=== PATIENT | male | born 1960 | race Caucasian/White ===

== ENCOUNTER 2016-10-03 21:35 | Emergency (ER) | payer SELFPAY ==
[2016-10-03] MEDS ORDERED: Sodium Chloride 0.9% 1,000 ML IV ONE (21:54)
[2016-10-03] MEDS ORDERED: Ibuprofen 600 MG Tab PO ONE (21:54)
--- NOTE | 2016-10-03 21:55 | EDM.PDOC ---
ED HPI GENERAL MEDICAL PROBLEM - General Chief Complaint: Fever Stated Complaint: FEVER/SHORT OF BREATH/COUGH/CONGESTION Time Seen by Provider: 10/03/16 21:53 - History of Present Illness INITIAL COMMENTS - FREE TEXT/NARRATIVE: HISTORY AND PHYSICAL: History of present illness: Patient 56-year-old white male history of hypertension and bradycardia presents with concern of fever cough and cold symptoms for the last 2 days he said a history of pneumonia he denies vomiting diarrhea chest pain or other concerns Review of systems: As per history of present illness and below otherwise all systems reviewed and negative. Past medical history: As per history of present illness and as reviewed below otherwise noncontributory. Surgical history: As per history of present illness and as reviewed below otherwise noncontributory. Social history: No reported history of drug or alcohol abuse. Family history: As per history of present illness and as reviewed below otherwise noncontributory. Physical exam: HEENT: Atraumatic, normocephalic, pupils reactive, negative for conjunctival pallor or scleral icterus, mucous membranes moist, throat clear, neck supple, nontender, trachea midline. Lungs: Coarse bilaterally, breath sounds equal bilaterally, chest nontender. Heart: S1S2, regular, negative for clicks, rubs, or JVD. Abdomen: Soft, nondistended, nontender. Negative for masses or hepatosplenomegaly. Negative for costovertebral tenderness. Pelvis: Stable nontender. Genitourinary: Deferred. Rectal: Deferred. Extremities: Atraumatic, negative for cords or calf pain. Neurovascular unremarkable. Neuro: Awake, alert, oriented. Cranial nerves II through XII unremarkable. Cerebellum unremarkable. Motor and sensory unremarkable throughout. Exam nonfocal. Diagnostics: CBC CMP influenza screen BNP chest x-ray EKG Therapeutics: Normal saline 1 L bolus Motrin 600 mg by mouth Impression: #1 acute febrile illness #2 history of hypertension #3 history of bradycardia Definitive disposition and diagnosis as appropriate pending reevaluation and review of above. - Related Data Allergies Allergy/AdvReac Type Severity Reaction Status Date / Time cephalexin [From Keflex] Allergy Hives Verified 10/03/16 21:42 Home Meds: Home Meds Carvedilol 1 tab PO DAILY 10/03/16 [History] Losartan [Cozaar] 1 tab PO DAILY 10/03/16 [History] Spironolactone [Aldactone] 1 tab PO DAILY 10/03/16 [History] Past Medical History - Past Health History Medical/Surgical History: Denies Medical/Surgical History Cardiovascular History: Reports: Hypertension Other Cardiovascular History: Weak heart; chest pains Other Respiratory History: Aspiration Pneumonia - Infectious Disease History Infectious Disease History: Reports: Chicken pox - Past Surgical History Other HEENT Surgeries/Procedures: Septum repair of bilateral nare GI Surgical History: Reports: Hernia, abdominal Other GI Surgeries/Procedures: Acid Reflux repair Social & Family History - Family History Family Medical History: Noncontributory - Tobacco Use Smoking Status *Q: Former Smoker - Caffeine Use Caffeine Use: Reports: Coffee Caffeine Use Comment: 1cup/day - Recreational Drug Use Recreational Drug Use: No ED ROS GENERAL - Review of Systems Review Of Systems: ROS reveals no pertinent complaints other than HPI. ED EXAM, GENERAL - Physical Exam Exam: See Below (See dictation) Course - Vital Signs Last Recorded V/S: Last Vital Signs Temp 37.7 C 10/03/16 22:42 Pulse 89 10/03/16 22:42 Resp 23 H 10/03/16 21:43 BP 173/104 H 10/03/16 21:43 Pulse Ox 96 10/03/16 21:43 - Orders/Labs/Meds Orders: Active Orders 24 hr Category Date Time Status EKG Documentation Completion [RC] STAT Care 10/03/16 21:52 Active Chest 2V [CR] Stat Exams 10/03/16 21:52 Taken Labs: Laboratory Tests 10/03/16 10/03/16 10/03/16 Range/Units 22:05 22:05 22:05 WBC 4.20 (4.0-11.0) K/uL RBC 4.50 (4.50-5.90) M/uL Hgb 13.8 (13.0-17.0) g/dL Hct 40.9 (38.0-50.0) % MCV 90.9 (80.0-98.0) fL MCH 30.7 (27.0-32.0) pg MCHC 33.7 (31.0-37.0) g/dL RDW Std Deviation 42.9 (28.0-62.0) fl RDW Coeff of Francine 13 (11.0-15.0) % Plt Count 154 (150-400) K/uL MPV 10.60 (7.40-12.00) fL Add Manual Diff YES Neutrophils % (Manual) 51 (48.0-80.0) % Band Neutrophils % 10 % Lymphocytes % (Manual) 22 (16.0-40.0) % Monocytes % (Manual) 16 H (0.0-15.0) % Eosinophils % (Manual) 1 (0.0-7.0) % Nucleated RBC % 0.4 /100WBC Absolute Seg Neuts 2.1 Band Neutrophils # 0.4 Lymphocytes # (Manual) 0.9 Monocytes # (Manual) 0.7 Eosinophils # (Manual) 0 Nucleated RBCs # 0 K/uL Sodium 141 (136-146) mmol/L Potassium 3.9 (3.5-5.1) mmol/L Chloride 109 (98-110) mmol/L Carbon Dioxide 24 (21-31) mmol/L BUN 15 (6.0-23.0) mg/dL Creatinine 0.9 (0.6-1.5) mg/dL Est Cr Clr Drug Dosing 101.79 mL/min Estimated GFR (MDRD) > 60.0 ml/min Glucose 104 (60-110) mg/dL Calcium 8.6 L (8.8-10.8) mg/dL Total Bilirubin 0.4 (0.1-1.5) mg/dL AST 24 (5-40) IU/L ALT 35 (8-54) IU/L Alkaline Phosphatase 79 (40-150) B-Natriuretic Peptide 28 (<100) PG/ML Total Protein 6.9 (6.0-8.0) g/dL Albumin 4.2 (3.5-5.0) g/dL Globulin 2.7 (2.0-3.5) g/dL Albumin/Globulin Ratio 1.6 (1.3-2.8) Meds: Medications Discontinued Medications Generic Name Dose Route Start Last Admin Trade Name Freq PRN Reason Stop Dose Admin Sodium Chloride 1,000 mls @ 999 mls/hr 10/03/16 21:54 10/03/16 22:05 Normal Saline IV 10/03/16 22:54 999 mls/hr .BOLUS ONE Administration Ibuprofen 600 mg 10/03/16 21:54 10/03/16 22:04 Motrin PO 10/03/16 21:55 600 mg ONETIME ONE Administration Oseltamivir Phosphate 75 mg 10/03/16 22:56 Tamiflu PO 10/03/16 22:57 ONETIME ONE Departure - Departure Time of Disposition: 22:57 Disposition: Home, Self-Care 01 Condition: good Clinical Impression: Influenza Forms: ED Department Discharge Additional Instructions: The following information is given to patients seen in the emergency department who are being discharged to home. This information is to outline your options for follow-up care. We provide all patients seen in our emergency department with a follow-up referral. The need for follow-up, as well as the timing and circumstances, are variable depending upon the specifics of your emergency department visit. If you don't have a primary care physician on staff, we will provide you with a referral. We always advise you to contact your personal physician following an emergency department visit to inform them of the circumstance of the visit and for follow-up with them and/or the need for any referrals to a consulting specialist. The emergency department will also refer you to a specialist when appropriate. This referral assures that you have the opportunity for followup care with a specialist. All of these measure are taken in an effort to provide you with optimal care, which includes your followup. Under all circumstances we always encourage you to contact your private physician who remains a resource for coordinating your care. When calling for followup care, please make the office aware that this follow-up is from your recent emergency room visit. If for any reason you are refused follow-up, please contact the [facility] emergency department at and asked to speak to the emergency department charge nurse. Tamiflu as prescribed Motrin Tylenol as directed push fluids continue current medications altered private medical doctor one to 2 days return as needed as discussed - My Orders Last 24 Hours: My Active Orders 10/03/16 21:52 EKG Documentation Completion [RC] STAT Chest 2V [CR] Stat - Assessment/Plan Last 24 Hours: My Active Orders 10/03/16 21:52 EKG Documentation Completion [RC] STAT Chest 2V [CR] Stat
[2016-10-03 22:38] LABS: CHLORIDE,CL 109 mmol/L (98-110); SODIUM,NA 141 mmol/L (136-146)
[2016-10-03] MEDS ORDERED: Oseltamivir 75 MG Cap PO ONE (22:56)
[2016-10-03 23:29] VITALS: BP 140/84
--- NOTE | 2016-10-04 19:42 | CR ---
EXAM DATE: 10/03/16 PATIENT'S AGE: 56 Patient: OSCAR JEROME Facility: [place], [place] Site . Site : 1960 Study: XRay Chest [id number]/9/[id number] 10:39:25 PM Ordering Physician: Brinda Sepulveda Final Report: INDICATION: cough x3 days, fever x1 day TECHNIQUE: Chest 2 views. The lung bases on lateral projection are incompletely imaged COMPARISON: None FINDINGS: Cardiovascular and mediastinum: Heart size and vasculature are normal in caliber and appearance. Mediastinum is within normal limits. Lungs and pleural spaces: No focal consolidation. No sign of pleural effusion. No pneumothorax. Bones and soft tissues: Degenerative changes. IMPRESSION: No acute cardiopulmonary disease. Dictated by Benny Cortes MD @ 10/03/2016 10:44:32 PM Dictated by: Benny Cortes MD @ 10/03/2016 22:51:31 (Electronic Signature) Report Signed by Proxy and Original Signed Document filed in the Medical Record. MTDD
== END 2016-10-03 23:10 | disposition home or self-care (01) ==
LOC: MW.ED 21:35
DX: J11.1 Influenza due to unidentified influenza virus with other respiratory manifestations (principal); I10 Essential (primary) hypertension; Z87.891 Personal history of nicotine dependence; Z87.01 Personal history of pneumonia (recurrent); Z88.1 Allergy status to other antibiotic agents; Z79.899 Other long term (current) drug therapy
CPT/HCPCS: 71020; 80053; 83880; 85025; 87804; 96360; 99284; A9270; J7040; 93005; 99283

== ENCOUNTER 2016-10-20 12:17 | Emergency (ER) | payer SELFPAY ==
[2016-10-20 12:29] VITALS: BP 163/80
--- NOTE | 2016-10-20 12:39 | EDM.PDOC ---
ED HPI GENERAL MEDICAL PROBLEM - General Chief Complaint: Lower Extremity Injury/Pain Stated Complaint: PAIN IN LEG/KNEE Time Seen by Provider: 10/20/16 12:29 Source of Information: Reports: Patient History Limitations: Reports: No limitations - History of Present Illness INITIAL COMMENTS - FREE TEXT/NARRATIVE: HISTORY AND PHYSICAL: History of present illness: Patient is a 56-year-old male who presents to the emergency department with severe right knee pain. He states he fell a couple of weeks ago and landed hard on some ice random elevation. He doesn't particularly remember injuring his knee at that time the last couple of days it has been getting worse and today he can even get out of bed. He states it is excruciating to try to flex the knee fully and weightbearing is very painful. He has not had any swelling of the knee. He denies any previous injury to the knee. Has no history of gout. He has no calf pain or tenderness. The leg pain radiates up to his hip and down his ankle but the source of the pain is his knee. No fevers or chills. No shortness of breath or chest pain. Review of systems: As per history of present illness and below otherwise all systems reviewed and negative. Past medical history: As per history of present illness and as reviewed below otherwise noncontributory. Surgical history: As per history of present illness and as reviewed below otherwise noncontributory. Social history: No reported history of drug or alcohol abuse. Family history: As per history of present illness and as reviewed below otherwise noncontributory. Physical exam: General: No acute distress. Vitals reviewed. HEENT: Atraumatic, normocephalic, normal neck range of motion Lungs: Clear to auscultation, no respiratory distress. Heart: Regular rate and rhythm. Normal peripheral pulses. Abdomen: Soft, nondistended, nontender. Pelvis: Stable nontender. Genitourinary: Deferred. Rectal: Deferred. Extremities: There is no evidence of swelling to the knee. It is not red or hot. There is no bruising or skin injuries noted. He has no tenderness to palpation anywhere around the knee. His pain is with range of motion and weightbearing. Sensation. No caffeine Or redness. Normal dorsalis pedis pulses. No ankle pain or swelling. Neuro: Awake, alert, oriented. Exam nonfocal. Diagnostics: Right knee x-ray Impression: R knee pain Plan: Patient was given a knee immobilizer. He states he has crutches at home. He will take ibuprofen and I gave him a prescription for [place] to use as needed. His x-rays showed some spurring around some of the ligaments. I do not know if that is causing his symptoms and this is aggravated by his injury or if he has some other soft tissue injury not visualized on x-ray. He had no evidence of skin infection or joint effusion and I do not think this is gout or septic arthritis. He was referred to orthopedics. Definitive disposition and diagnosis as appropriate pending reevaluation and review of above. Right Knee Pain Score (Numeric/FACES): 10 - Related Data Allergies Allergy/AdvReac Type Severity Reaction Status Date / Time cephalexin [From Keflex] Allergy Hives Verified 10/03/16 21:42 Home Meds: Home Meds Carvedilol 1 tab PO DAILY 10/03/16 [History] Losartan [Cozaar] 1 tab PO DAILY 10/03/16 [History] Spironolactone [Aldactone] 1 tab PO DAILY 10/03/16 [History] Past Medical History - Past Health History Medical/Surgical History: Denies Medical/Surgical History Cardiovascular History: Reports: Hypertension Other Cardiovascular History: Weak heart; chest pains Other Respiratory History: Aspiration Pneumonia - Infectious Disease History Infectious Disease History: Reports: Chicken pox - Past Surgical History Other HEENT Surgeries/Procedures: Septum repair of bilateral nare GI Surgical History: Reports: Hernia, abdominal Other GI Surgeries/Procedures: Acid Reflux repair Social & Family History - Family History Family Medical History: Noncontributory - Tobacco Use Smoking Status *Q: Former Smoker - Caffeine Use Caffeine Use: Reports: Coffee Caffeine Use Comment: 1cup/day - Recreational Drug Use Recreational Drug Use: No ED ROS GENERAL - Review of Systems Review Of Systems: ROS reveals no pertinent complaints other than HPI. ED EXAM, GENERAL - Physical Exam Exam: See Below (See dictation.) Course - Vital Signs Last Recorded V/S: Last Vital Signs Temp 36.4 C 10/20/16 12:23 Pulse 79 10/20/16 12:23 Resp 19 10/20/16 12:23 BP 163/80 H 10/20/16 12:23 Pulse Ox 96 10/20/16 12:23 - Orders/Labs/Meds Orders: Active Orders 24 hr Category Date Time Status Knee 3V Rt [CR] Stat Exams 10/20/16 12:28 Taken Meds: Medications Discontinued Medications Generic Name Dose Route Start Last Admin Trade Name Melvin PRN Reason Stop Dose Admin Morphine Sulfate 4 mg 10/20/16 14:25 10/20/16 14:33 Morphine IM 10/20/16 14:26 4 mg ONETIME ONE Administration Departure - Departure Time of Disposition: 14:03 Disposition: Home, Self-Care 01 Condition: good Clinical Impression: Knee pain Qualifiers: Laterality: right Chronicity: acute Qualified Code(s): M25.561 - Pain in right knee Instructions: Knee Pain Referrals: PCP,None [Primary Care Provider] - Forms: ED Department Discharge Additional Instructions: The following information is given to patients seen in the emergency department who are being discharged to home. This information is to outline your options for follow-up care. We provide all patients seen in our emergency department with a follow-up referral. The need for follow-up, as well as the timing and circumstances, are variable depending upon the specifics of your emergency department visit. If you don't have a primary care physician on staff, we will provide you with a referral. We always advise you to contact your personal physician following an emergency department visit to inform them of the circumstance of the visit and for follow-up with them and/or the need for any referrals to a consulting specialist. The emergency department will also refer you to a specialist when appropriate. This referral assures that you have the opportunity for follow-up care with a specialist. All of these measure are taken in an effort to provide you with optimal care, which includes your follow-up. Under all circumstances we always encourage you to contact your private physician who remains a resource for coordinating your care. When calling for follow-up care, please make the office aware that this follow-up is from your recent emergency room visit. If for any reason you are refused follow-up, please contact the [facility] Emergency Department at and asked to speak to the emergency department charge nurse. [facility] - [facility] Professional Building [address] [place] [address], [address] [place] [address] - My Orders Last 24 Hours: My Active Orders 10/20/16 12:28 Knee 3V Rt [CR] Stat - Assessment/Plan Last 24 Hours: My Active Orders 10/20/16 12:28 Knee 3V Rt [CR] Stat
[2016-10-20] MEDS ORDERED: Morphine 2 MG/ML Syringe IM ONE (14:25)
--- NOTE | 2016-10-21 18:28 | CR ---
EXAM DATE: 10/20/16 PATIENT'S AGE: 56 Patient: OSCAR JEROME Facility: [place], [place] Site . Site : 1960 Study: XRay Knee Right [id number]/26/2017 12:58:32 PM Ordering Physician: Doctor Beltran Final Report: HISTORY: Right knee pain, prior fall. TECHNIQUE: Three views of the right knee. FINDINGS: There is no acute fracture. No suprapatellar joint effusion or malalignment. Spurring at the quadriceps attachment to the superior pole of the patella. Spurring at the patellar attachment to the tibial tubercle. No chondrocalcinosis or erosive change. IMPRESSION: No acute fracture or malalignment. Dictated by Byron Whittington MD @ 10/20/2016 1:24:28 PM Dictated by: Byron Whittington MD @ 10/20/2016 13:24:34 (Electronic Signature) Report Signed by Proxy and Original Signed Document filed in the Medical Record. MTDWilbert
== END 2016-10-20 14:38 | disposition home or self-care (01) ==
LOC: MW.ED 12:17
DX: M25.561 Pain in right knee (principal); I10 Essential (primary) hypertension; Z88.1 Allergy status to other antibiotic agents; Z87.01 Personal history of pneumonia (recurrent); Z87.891 Personal history of nicotine dependence; Z79.899 Other long term (current) drug therapy
CPT/HCPCS: 73562; 96372; 99283; J2270; 99284

== ENCOUNTER 2017-06-23 20:11 | Emergency (ER) | payer SELFPAY ==
--- NOTE | 2017-06-23 20:26 | EDM.PDOC ---
ED HPI GENERAL MEDICAL PROBLEM - General Chief Complaint: Lower Extremity Injury/Pain Stated Complaint: LEFT LEG PAIN Time Seen by Provider: 06/23/17 20:20 - History of Present Illness INITIAL COMMENTS - FREE TEXT/NARRATIVE: HISTORY AND PHYSICAL: History of present illness: Patient 56-year-old male presents with right leg pain he's had this for 8 days this began status post flight that he was on to [place] he states that he has had persistent pain and swelling that's localized to his right calf he denies history of DVT or pulmonary embolism he denies other trauma or concern he denies shortness of breath abdominal pain nausea vomiting fever or chills he denies history of gout or history of known Rodrigues's cyst. Review of systems: As per history of present illness and below otherwise all systems reviewed and negative. Past medical history: As per history of present illness and as reviewed below otherwise noncontributory. Surgical history: As per history of present illness and as reviewed below otherwise noncontributory. Social history: No reported history of drug or alcohol abuse. Family history: As per history of present illness and as reviewed below otherwise noncontributory. Physical exam: HEENT: Atraumatic, normocephalic, pupils reactive, negative for conjunctival pallor or scleral icterus, mucous membranes moist, throat clear, neck supple, nontender, trachea midline. Lungs: Clear to auscultation, breath sounds equal bilaterally, chest nontender. Heart: S1S2, regular, negative for clicks, rubs, or JVD. Abdomen: Soft, nondistended, nontender. Negative for masses or hepatosplenomegaly. Negative for costovertebral tenderness. Pelvis: Stable nontender. Genitourinary: Deferred. Rectal: Deferred. Extremities: Patient has tenderness to palpation of his right calf there are no cords noted neurovascular exam is unremarkable Neuro: Awake, alert, oriented. Cranial nerves II through XII unremarkable. Cerebellum unremarkable. Motor and sensory unremarkable throughout. Exam nonfocal. Diagnostics: CBC CMP PT/INR x-ray right tib-fib venous Doppler right lower extremity Therapeutics: To be determined Impression: #1 right lower extremity pain Definitive disposition and diagnosis as appropriate pending reevaluation and review of above. - Related Data Allergies Allergy/AdvReac Type Severity Reaction Status Date / Time cephalexin [From Keflex] Allergy Hives Verified 06/23/17 20:27 Home Meds: Home Meds Carvedilol 1 tab PO BID 10/03/16 [History] Losartan [Cozaar] 1 tab PO DAILY 10/03/16 [History] Past Medical History - Past Health History Medical/Surgical History: Denies Medical/Surgical History Cardiovascular History: Reports: Hypertension Other Cardiovascular History: Weak heart; chest pains Other Respiratory History: Aspiration Pneumonia - Infectious Disease History Infectious Disease History: Reports: Chicken Pox - Past Surgical History GI Surgical History: Reports: Hernia, Abdominal Social & Family History - Family History Family Medical History: Noncontributory - Tobacco Use Smoking Status *Q: Former Smoker Second Hand Smoke Exposure: No - Caffeine Use Caffeine Use: Reports: Coffee Caffeine Use Comment: 1cup/day - Recreational Drug Use Recreational Drug Use: No Review of Systems - Review of Systems Review Of Systems: ROS reveals no pertinent complaints other than HPI. ED EXAM, GENERAL - Physical Exam Exam: See Below (See dictation) Course - Vital Signs Last Recorded V/S: Last Vital Signs Temp 37.6 C 06/23/17 20:24 Pulse 83 06/23/17 20:24 Resp 16 06/23/17 20:24 BP 183/110 H 06/23/17 20:24 Pulse Ox 94 L 06/23/17 20:24 - Orders/Labs/Meds Orders: Active Orders 24 hr Category Date Time Status CV Venous Duplex Legs Bi [US] Stat Exams 06/23/17 20:30 Taken Tibia Fibula Rt [CR] Stat Exams 06/23/17 20:30 Taken Labs: Laboratory Tests 06/23/17 06/23/17 06/23/17 Range/Units 20:40 20:40 20:40 WBC 8.52 (4.0-11.0) K/uL RBC 4.71 (4.50-5.90) M/uL Hgb 14.5 (13.0-17.0) g/dL Hct 42.8 (38.0-50.0) % MCV 90.9 (80.0-98.0) fL MCH 30.8 (27.0-32.0) pg MCHC 33.9 (31.0-37.0) g/dL RDW Std Deviation 42.6 (28.0-62.0) fl RDW Coeff of Francine 13 (11.0-15.0) % Plt Count 193 (150-400) K/uL MPV 10.60 (7.40-12.00) fL Neut % (Auto) 65.6 (48.0-80.0) % Lymph % (Auto) 23.7 (16.0-40.0) % Harvey % (Auto) 8.9 (0.0-15.0) % Eos % (Auto) 1.6 (0.0-7.0) % Baso % (Auto) 0.2 (0.0-1.5) % Neut # (Auto) 5.6 (1.4-5.7) K/uL Lymph # (Auto) 2.0 (0.6-2.4) K/uL Harvey # (Auto) 0.8 (0.0-0.8) K/uL Eos # (Auto) 0.1 (0.0-0.7) K/uL Baso # (Auto) 0.0 (0.0-0.1) K/uL Nucleated RBC % 0.0 /100WBC Nucleated RBCs # 0 K/uL INR 0.94 (0.86-1.11) Sodium 142 (136-146) mmol/L Potassium 4.2 (3.5-5.1) mmol/L Chloride 107 (98-110) mmol/L Carbon Dioxide 26 (21-31) mmol/L BUN 17 (6.0-23.0) mg/dL Creatinine 1.0 (0.6-1.5) mg/dL Est Cr Clr Drug Dosing 91.61 mL/min Estimated GFR (MDRD) > 60.0 ml/min Glucose 132 H (60-110) mg/dL Calcium 9.2 (8.8-10.8) mg/dL Total Bilirubin 0.3 (0.1-1.5) mg/dL AST 17 (5-40) IU/L ALT 32 (8-54) IU/L Alkaline Phosphatase 84 (40-150) Total Protein 7.2 (6.0-8.0) g/dL Albumin 4.2 (3.5-5.0) g/dL Globulin 3.0 (2.0-3.5) g/dL Albumin/Globulin Ratio 1.4 (1.3-2.8) Meds: Medications Discontinued Medications Generic Name Dose Route Start Last Admin Trade Name Freq PRN Reason Stop Dose Admin Hydromorphone HCl 1 mg 06/23/17 20:30 06/23/17 20:42 Dilaudid IVPUSH 06/23/17 20:31 1 mg ONETIME ONE Administration Ketorolac Tromethamine 30 mg 06/23/17 22:21 Toradol IVPUSH 06/23/17 22:22 ONETIME ONE Ondansetron HCl 4 mg 06/23/17 20:30 06/23/17 20:42 Zofran IVPUSH 06/23/17 20:31 4 mg ONETIME ONE Administration Departure - Departure Time of Disposition: 22:25 Disposition: Home, Self-Care 01 Condition: Good Clinical Impression: Bakers cyst - Discharge Information Referrals: PCP,None [Primary Care Provider] - Forms: ED Department Discharge Additional Instructions: The following information is given to patients seen in the emergency department who are being discharged to home. This information is to outline your options for follow-up care. We provide all patients seen in our emergency department with a follow-up referral. The need for follow-up, as well as the timing and circumstances, are variable depending upon the specifics of your emergency department visit. If you don't have a primary care physician on staff, we will provide you with a referral. We always advise you to contact your personal physician following an emergency department visit to inform them of the circumstance of the visit and for follow-up with them and/or the need for any referrals to a consulting specialist. The emergency department will also refer you to a specialist when appropriate. This referral assures that you have the opportunity for followup care with a specialist. All of these measure are taken in an effort to provide you with optimal care, which includes your followup. Under all circumstances we always encourage you to contact your private physician who remains a resource for coordinating your care. When calling for followup care, please make the office aware that this follow-up is from your recent emergency room visit. If for any reason you are refused follow-up, please contact the [facility] emergency department at and asked to speak to the emergency department charge nurse. [facility] [address] [place] [id number] [facility] Professional Building [address] [place] [address], [address] [place] [address] Ultram as prescribed follow-up primary medical doctor in orthopedic clinic above called to schedule routine appointment return as needed as discussed - My Orders Last 24 Hours: My Active Orders 06/23/17 20:30 CV Venous Duplex Legs Bi [US] Stat Tibia Fibula Rt [CR] Stat - Assessment/Plan Last 24 Hours: My Active Orders 06/23/17 20:30 CV Venous Duplex Legs Bi [US] Stat Tibia Fibula Rt [CR] Stat
[2017-06-23] MEDS ORDERED: Ondansetron 4 MG/2 ML SDV IVPUSH ONE (20:30)
[2017-06-23] MEDS ORDERED: HYDROmorphone 1 MG/ML Syringe IVPUSH ONE (20:30)
[2017-06-23 21:12] LABS: CHLORIDE,CL 107 mmol/L (98-110); SODIUM,NA 142 mmol/L (136-146)
[2017-06-23] MEDS ORDERED: Ketorolac 30 MG/ML SDV IVPUSH ONE (22:21)
[2017-06-23 22:55] VITALS: BP 173/94
--- NOTE | 2017-06-24 11:13 | CR ---
EXAM DATE: 06/23/17 PATIENT'S AGE: 56 Patient: OSCAR JEROME Facility: [place], [place] Site . Site : 1960 Study: XRay Extremity tib/fib [id number]/27/[id number] 9:09:22 PM Ordering Physician: Brinda Sepulveda Final Report: INDICATION: leg pain x8 days after flying TECHNIQUE: Right tibia/ fibula radiographs COMPARISON: None FINDINGS: Bones: Remote posttraumatic deformity along the posterior and medial malleoli. Enthesophyte formation along the plantar aspect of the calcaneus and Achilles tendon insertion to the calcaneus. No fractures or bone lesions. Joint spaces: Degenerative changes. Soft tissues: Unremarkable. IMPRESSION: No acute bony abnormality. Dictated by Benny Cortes MD @ 06/23/2017 9:15:46 PM Dictated by: Benny Cortes MD @ 06/23/2017 21:15:57 (Electronic Signature) Report Signed by Proxy. MICHELLE
--- NOTE | 2017-06-24 11:14 | US ---
EXAM DATE: 06/23/17 PATIENT'S AGE: 56 Patient: OSCAR JEROME Facility: [place], [place] Site . Site : 1960 Study: US Extremity Bilateral Venous-06/23/2017 9:41:18 PM Ordering Physician: Brinda Sepulveda Final Report: INDICATION: leg pain TECHNIQUE: Ultrasound venous duplex lower extremity bilateral. Compression venous exam was performed using salinas-scale, color Doppler, and spectral Doppler imaging. COMPARISON: None FINDINGS: Sonographic imaging demonstrates the common femoral, deep femoral, superficial femoral, popliteal, posterior tibial and greater saphenous veins to be fully compressible with normal color Doppler blood flow in both lower extremities. Rodrigues`s cyst on the right measuring 3 cm. Rodrigues`s cyst on the left measuring 3.6 cm. IMPRESSION: 1. No evidence of deep venous thrombosis within either lower extremity. 2. Bilateral Rodrigues`s cysts. Dictated by Benny Cortes MD @ 06/23/2017 10:13:39 PM Dictated by: Benny Cortes MD @ 06/23/2017 22:13:50 (Electronic Signature) Report Signed by Proxy. GUTH[facility] CORTLAND MEDICAL CENTERWilbert
== END 2017-06-23 22:52 | disposition home or self-care (01) ==
LOC: MW.ED 20:11
DX: M71.21 Synovial cyst of popliteal space [Baker], right knee (principal); Z88.1 Allergy status to other antibiotic agents; Z79.899 Other long term (current) drug therapy; Z87.891 Personal history of nicotine dependence
CPT/HCPCS: 36415; 73590; 80053; 85025; 85610; 93971; 96374; 96375; 99284; J1170; J1885; J2405

== ENCOUNTER 2017-07-22 20:07 | Emergency (ER) | payer SELFPAY ==
--- NOTE | 2017-07-22 20:24 | EDM.PDOC ---
ED HPI GENERAL MEDICAL PROBLEM - General Chief Complaint: Lower Extremity Injury/Pain Stated Complaint: LEFT LEG PAIN Time Seen by Provider: 07/22/17 20:12 - History of Present Illness INITIAL COMMENTS - FREE TEXT/NARRATIVE: HISTORY AND PHYSICAL: History of present illness: Patient is a 56-year-old white male was seen by myself in the recent past and diagnosed with a Rodrigues's cyst now presents with a concern of increased leg pain and swelling of his right calf consistent with ruptured Rodrigues's cyst he's been working on this since this event and has had increased swelling and pain is only analgesia has been Motrin. He denies fever chills or other concern Review of systems: As per history of present illness and below otherwise all systems reviewed and negative. Past medical history: As per history of present illness and as reviewed below otherwise noncontributory. Surgical history: As per history of present illness and as reviewed below otherwise noncontributory. Social history: No reported history of drug or alcohol abuse. Family history: As per history of present illness and as reviewed below otherwise noncontributory. Physical exam: HEENT: Atraumatic, normocephalic, pupils reactive, negative for conjunctival pallor or scleral icterus, mucous membranes moist, throat clear, neck supple, nontender, trachea midline. Lungs: Clear to auscultation, breath sounds equal bilaterally, chest nontender. Heart: S1S2, regular, negative for clicks, rubs, or JVD. Abdomen: Soft, nondistended, nontender. Negative for masses or hepatosplenomegaly. Negative for costovertebral tenderness. Pelvis: Stable nontender. Genitourinary: Deferred. Rectal: Deferred. Extremities: Patient has tenderness swelling of the right calf neurovascular exam including distal pulses motor and sensory are normal Neuro: Awake, alert, oriented. Cranial nerves II through XII unremarkable. Cerebellum unremarkable. Motor and sensory unremarkable throughout. Exam nonfocal. Diagnostics: Venous Doppler right lower extremity Therapeutics: Hydrocodone 7.5 mg by mouth Impression: #1 right lower extremity pain ruptured Rodrigues's cyst 1 Definitive disposition and diagnosis as appropriate pending reevaluation and review of above. right calf Pain Score (Numeric/FACES): 9 - Related Data Allergies Allergy/AdvReac Type Severity Reaction Status Date / Time cephalexin [From Keflex] Allergy Hives Verified 07/22/17 20:14 Home Meds: Home Meds Carvedilol 1 tab PO BID 10/03/16 [History] Losartan [Cozaar] 1 tab PO DAILY 10/03/16 [History] Past Medical History - Past Health History Medical/Surgical History: Denies Medical/Surgical History Cardiovascular History: Reports: Hypertension Other Cardiovascular History: Weak heart; chest pains Other Respiratory History: Aspiration Pneumonia - Infectious Disease History Infectious Disease History: Reports: Chicken Pox - Past Surgical History Other HEENT Surgeries/Procedures: Septum repair of bilateral nare GI Surgical History: Reports: Hernia, Abdominal Social & Family History - Family History Family Medical History: Noncontributory - Tobacco Use Smoking Status *Q: Former Smoker Used Tobacco, but Quit: Yes Month Tobacco Last Used: 1980 Second Hand Smoke Exposure: No - Caffeine Use Caffeine Use: Reports: Coffee Caffeine Use Comment: 1cup/day - Recreational Drug Use Recreational Drug Use: Yes Recreational Drug Type: Reports: Marijuana/Hashish Review of Systems - Review of Systems Review Of Systems: ROS reveals no pertinent complaints other than HPI. ED EXAM, GENERAL - Physical Exam Exam: See Below (The dictation) Course - Vital Signs Text/Narrative:: Patient unremarkable course I did consult orthopedic surgery [facility] who agrees with venous Doppler more significant analgesia and close follow-up. She is also available in the clinic tomorrow. Last Recorded V/S: Last Vital Signs Temp 37.2 C 07/22/17 21:30 Pulse 72 07/22/17 21:30 Resp 16 07/22/17 21:30 BP 134/80 07/22/17 21:30 Pulse Ox 96 07/22/17 21:30 - Orders/Labs/Meds Orders: Active Orders 24 hr Category Date Time Status Venous Doppler Lwr Ext Rt [US] Stat Exams 07/22/17 20:18 Taken Acetaminophen/HYDROcodone [[place] 325-7.5 MG] Med 07/22/17 20:25 Active 1 tab PO Q6H PRN Medication Orders Hydrocodone Bitart/Acetaminophen ([place] 325-7.5 Mg) 1 tab PO Q6H PRN PRN Reason: Pain Last Admin: 07/22/17 20:53 Dose: 1 tab Meds: Medications Generic Name Dose Route Start Last Admin Trade Name Freq PRN Reason Stop Dose Admin Hydrocodone Bitart/Acetaminophen 1 tab 07/22/17 20:25 07/22/17 20:53 [place] 325-7.5 Mg PO 1 tab Q6H PRN Administration Pain Departure - Departure Time of Disposition: 21:52 Disposition: Home, Self-Care 01 Condition: Good Clinical Impression: Ruptured Bakers cyst - Discharge Information Referrals: PCP,None [Primary Care Provider] - Forms: ED Department Discharge Additional Instructions: The following information is given to patients seen in the emergency department who are being discharged to home. This information is to outline your options for follow-up care. We provide all patients seen in our emergency department with a follow-up referral. The need for follow-up, as well as the timing and circumstances, are variable depending upon the specifics of your emergency department visit. If you don't have a primary care physician on staff, we will provide you with a referral. We always advise you to contact your personal physician following an emergency department visit to inform them of the circumstance of the visit and for follow-up with them and/or the need for any referrals to a consulting specialist. The emergency department will also refer you to a specialist when appropriate. This referral assures that you have the opportunity for followup care with a specialist. All of these measure are taken in an effort to provide you with optimal care, which includes your followup. Under all circumstances we always encourage you to contact your private physician who remains a resource for coordinating your care. When calling for followup care, please make the office aware that this follow-up is from your recent emergency room visit. If for any reason you are refused follow-up, please contact the [facility] emergency department at and asked to speak to the emergency department charge nurse. Strict elevation as discussed pain medicine as discussed no work until follow- up with private medical doctor and/or orthopedic surgery return as discussed for persistent or worsening pain any numbness weakness or other neurovascular signs or symptoms as discussed , follow-up [facility] orthopedics tomorrow as needed as discussed call in a.m. to schedule appointment with - My Orders Last 24 Hours: My Active Orders 07/22/17 20:18 Venous Doppler Lwr Ext Rt [US] Stat 07/22/17 20:25 Acetaminophen/HYDROcodone [[place] 325-7.5 MG] 1 tab PO Q6H PRN - Assessment/Plan Last 24 Hours: My Active Orders 07/22/17 20:18 Venous Doppler Lwr Ext Rt [US] Stat 07/22/17 20:25 Acetaminophen/HYDROcodone [[place] 325-7.5 MG] 1 tab PO Q6H PRN
[2017-07-22] MEDS ORDERED: Acetaminophen/HYDROcodone 325-7.5 MG Tab PO PRN (20:25)
[2017-07-22 21:39] VITALS: BP 134/80
--- NOTE | 2017-07-23 11:46 | US ---
EXAM DATE: 07/22/17 PATIENT'S AGE: 56 Patient: OSCAR JEROME Facility: [place], [place] Site . Site : 1960 Study: US Extremity Right [id number] 8:59:00 PM Ordering Physician: Brinda Sepulveda Final Report: CLINICAL HISTORY: Pain and swelling right lower extremity; duplex ultrasound evaluation venous system of both lower extremities 06/23/2017 TECHNIQUE: A compression venous ultrasound exam was performed of the right lower extremity using salinas-scale imaging, color Doppler and spectral Doppler analysis. FINDINGS: Sonographic imaging of the right lower extremity demonstrates normal compressibility and color Doppler venous blood flow within the common femoral vein, deep femoral vein, and the proximal greater saphenous vein. Within the thigh, the femoral vein is patent and compressible. At a lower level, the popliteal and posterior tibial veins also show normal compressibility and color Doppler venous blood flow. Limited imaging of the contralateral groin demonstrates a normal spectral waveform and color Doppler venous blood flow within the left common femoral vein. 9 x 2 centimeter complex fluid-filled structure identified in the right popliteal fossa extending into the left calf ; rule out ruptured Rodrigues`s cyst. IMPRESSION: Normal venous ultrasound exam. No evidence of deep vein thrombosis within the right lower extremity. 9 x 2 centimeter complex fluid-filled structure right popliteal fossa extending into the left calf ; rule out ruptured popliteal cyst Dictated by Johnna Ball MD @ Jul 22 2017 9:56PM (Electronic Signature) Report Signed by Proxy. MICHELLE
== END 2017-07-22 23:03 | disposition home or self-care (01) ==
LOC: MW.ED 20:07
DX: M66.0 Rupture of popliteal cyst (principal); I10 Essential (primary) hypertension; Z88.1 Allergy status to other antibiotic agents; Z79.899 Other long term (current) drug therapy; Z87.891 Personal history of nicotine dependence
CPT/HCPCS: 93971; 99284; A9270; 99283

== ENCOUNTER 2018-10-03 11:19 | Emergency (ER) | payer SELFPAY ==
[2018-10-03] MEDS ORDERED: Sodium Chloride 0.9% 2.5 ML Syringe FLUSH PRN (11:33)
[2018-10-03] MEDS ORDERED: Ondansetron 4 MG/2 ML SDV IVPUSH ONE (11:33)
[2018-10-03] MEDS ORDERED: Morphine 4 MG/ML Syringe IVPUSH ONE ×2 (11:33→13:32)
[2018-10-03] MEDS ORDERED: Sodium Chloride 0.9% 1,000 ML IV ONE (11:33)
[2018-10-03] MEDS ORDERED: Sodium Chloride 0.9% 10 ML Syringe FLUSH PRN (11:33)
--- NOTE | 2018-10-03 11:47 | EDM.PDOC ---
ED HPI GENERAL MEDICAL PROBLEM - General Chief Complaint: Abdominal Pain Stated Complaint: ABDOMINAL PAIN, BULGE IN STOMACH Time Seen by Provider: 10/03/18 11:22 Source of Information: Reports: Patient History Limitations: Reports: No Limitations - History of Present Illness INITIAL COMMENTS - FREE TEXT/NARRATIVE: History of present illness: []Patient was lifting 40 pound dumbbells approximately 4 days ago when he felt abdominal pain that has continued. He denies any fevers, chills, vomiting or diarrhea. Patient has had a hiatal hernia in the past that was treated with a [place] but has not had any symptoms since. Review of systems: As per history of present illness and below otherwise all systems reviewed and negative. Past medical history: As per history of present illness and as reviewed below otherwise noncontributory. Surgical history: As per history of present illness and as reviewed below otherwise noncontributory. Social history: No reported history of drug or alcohol abuse. Family history: As per history of present illness and as reviewed below otherwise noncontributory. Physical exam: General: Well developed, well nourished in NAD HEENT: Atraumatic, normocephalic, pupils reactive, negative for conjunctival pallor or scleral icterus, mucous membranes moist, throat clear, neck supple, nontender, trachea midline. Lungs: Clear to auscultation, breath sounds equal bilaterally, chest nontender. Heart: S1S2, regular, negative for clicks, rubs, or JVD. Abdomen: Obese NABS, Soft, nondistended, tender midline above the umbilicus, no palpable masses, no rebound or guarding.. Negative for masses or hepatosplenomegaly. Negative for costovertebral tenderness. Pelvis: Stable nontender. Genitourinary: Deferred. Rectal: Deferred. Extremities: Atraumatic, negative for cords or calf pain. Neurovascular unremarkable. Neuro: Awake, alert, oriented. Cranial nerves II through XII unremarkable. Cerebellum unremarkable. Motor and sensory unremarkable throughout. Exam nonfocal. Skin:warm and dry Diagnostics: CBC, Chemistry, lipase, CT abdomen and pelvis Therapeutics: Morphine for pain ED Course: Consulted Dr. Ward general surgery pipe connector who will follow up with this patient in his office Impression: Small fat-containing ventral hernia Prescriptions: Tramadol for pain Plan: Follow-up with Dr. Ward, Take meds as directed, follow up with your primary care physician, return to ER if symptoms worsen or change. Definitive disposition and diagnosis as appropriate pending reevaluation and review of above. Abdominal Pain Score (Numeric/FACES): 8 - Related Data Allergies Allergy/AdvReac Type Severity Reaction Status Date / Time cephalexin [From Keflex] Allergy Hives Verified 10/03/18 11:53 Home Meds: Home Meds Aspirin 81 mg PO DAILY 08/28/18 [History] traMADol HCl [Tramadol HCl] 50 mg PO Q6H PRN #16 tablet 10/03/18 [Rx] Past Medical History - Past Health History Medical/Surgical History: Denies Medical/Surgical History HEENT History: Reports: None Cardiovascular History: Reports: High Cholesterol, Hypertension Other Cardiovascular History: Weak heart; chest pains Respiratory History: Reports: Pneumonia, Recurrent, Other (See Below) Other Respiratory History: Aspiration Pneumonia Gastrointestinal History: Reports: Bowel Obstruction Genitourinary History: Reports: None Musculoskeletal History: Reports: None Neurological History: Reports: None Psychiatric History: Reports: None Endocrine/Metabolic History: Reports: None Hematologic History: Reports: None Immunologic History: Reports: None Oncologic (Cancer) History: Reports: None Dermatologic History: Reports: None - Infectious Disease History Infectious Disease History: Reports: Chicken Pox - Past Surgical History Head Surgeries/Procedures: Reports: None HEENT Surgical History: Reports: Other (See Below) Other HEENT Surgeries/Procedures: Septum repair of bilateral nare Cardiovascular Surgical History: Reports: None Respiratory Surgical History: Reports: None GI Surgical History: Reports: Hernia, Abdominal, Other (See Below) Other GI Surgeries/Procedures: Gerd surgery Male Surgical History: Reports: None Endocrine Surgical History: Reports: None Neurological Surgical History: Reports: None Musculoskeletal Surgical History: Reports: Other (See Below) Other Musculoskeletal Surgeries/Procedures:: fasciotomy, RLE, ruptured Rodrigues's cyst, skin graft Oncologic Surgical History: Reports: None Dermatological Surgical History: Reports: None Social & Family History - Family History Family Medical History: Noncontributory - Caffeine Use Caffeine Use: Reports: None Caffeine Use Comment: 1cup/day ED ROS GENERAL - Review of Systems Review Of Systems: ROS reveals no pertinent complaints other than HPI. ED EXAM, GI/ABD - Physical Exam Exam: See Below (The history of present illness) Course - Vital Signs Last Recorded V/S: Last Vital Signs Temp 97.7 F 10/03/18 11:54 Pulse 67 10/03/18 12:43 Resp 15 10/03/18 12:43 BP 139/65 10/03/18 12:43 Pulse Ox 95 10/03/18 12:43 - Orders/Labs/Meds Orders: Active Orders 24 hr Category Date Time Status UA W/MICROSCOPIC [URIN] Stat Lab 10/03/18 11:34 Ordered Sodium Chloride 0.9% [Saline Flush] Med 10/03/18 11:33 Active 10 ml FLUSH ASDIRECTED PRN Sodium Chloride 0.9% [Saline Flush] Med 10/03/18 11:33 Active 2.5 ml FLUSH ASDIRECTED PRN Saline Lock Insert [OM.PC] Stat Oth 10/03/18 11:33 Ordered Medication Orders Sodium Chloride (Saline Flush) 10 ml FLUSH ASDIRECTED PRN PRN Reason: Keep Vein Open Last Admin: 10/03/18 11:46 Dose: 10 ml Sodium Chloride (Saline Flush) 2.5 ml FLUSH ASDIRECTED PRN PRN Reason: Keep Vein Open Last Admin: 10/03/18 11:46 Dose: 2.5 ml Labs: Laboratory Tests 10/03/18 10/03/18 10/03/18 Range/Units 11:41 11:41 11:41 WBC 6.68 (4.0-11.0) K/uL RBC 4.89 (4.50-5.90) M/uL Hgb 15.2 (13.0-17.0) g/dL Hct 44.5 (38.0-50.0) % MCV 91.0 (80.0-98.0) fL MCH 31.1 (27.0-32.0) pg MCHC 34.2 (31.0-37.0) g/dL RDW Std Deviation 45.2 (28.0-62.0) fl RDW Coeff of Francine 14 (11.0-15.0) % Plt Count 199 (150-400) K/uL MPV 10.90 (7.40-12.00) fL Neut % (Auto) 58.2 (48.0-80.0) % Lymph % (Auto) 30.2 (16.0-40.0) % [place] % (Auto) 9.1 (0.0-15.0) % Eos % (Auto) 2.2 (0.0-7.0) % Baso % (Auto) 0.3 (0.0-1.5) % Neut # (Auto) 3.9 (1.4-5.7) K/uL Lymph # (Auto) 2.0 (0.6-2.4) K/uL [place] # (Auto) 0.6 (0.0-0.8) K/uL Eos # (Auto) 0.2 (0.0-0.7) K/uL Baso # (Auto) 0.0 (0.0-0.1) K/uL Nucleated RBC % 0.0 /100WBC Nucleated RBCs # 0 K/uL Lactate 1.2 (0.20-2.00) mmol/L Sodium 142 (136-148) mmol/L Potassium 4.6 (3.5-5.1) mmol/L Chloride 107 (98-107) mmol/L Carbon Dioxide 27.1 (21.0-32.0) mmol/L BUN 13 (7.0-18.0) mg/dL Creatinine 0.8 (0.8-1.3) mg/dL Est Cr Clr Drug Dosing 98.56 mL/min Estimated GFR (MDRD) > 60.0 ml/min Glucose 113 H (74-106) mg/dL Calcium 8.5 (8.5-10.1) mg/dL Total Bilirubin 0.6 (0.2-1.0) mg/dL AST 18 (15-37) IU/L ALT 41 (14-63) IU/L Alkaline Phosphatase 103 (46-116) U/L Total Protein 7.1 (6.4-8.2) g/dL Albumin 3.7 (3.4-5.0) g/dL Globulin 3.4 (2.6-4.0) g/dL Albumin/Globulin Ratio 1.1 (0.9-1.6) Lipase 81 (73-393) U/L Meds: Medications Generic Name Dose Route Start Last Admin Trade Name Freq PRN Reason Stop Dose Admin Sodium Chloride 10 ml 10/03/18 11:33 10/03/18 11:46 Saline Flush FLUSH 10 ml ASDIRECTED PRN Administration Keep Vein Open Sodium Chloride 2.5 ml 10/03/18 11:33 10/03/18 11:46 Saline Flush FLUSH 2.5 ml ASDIRECTED PRN Administration Keep Vein Open Discontinued Medications Generic Name Dose Route Start Last Admin Trade Name Melvin PRN Reason Stop Dose Admin Sodium Chloride 1,000 mls @ 999 mls/hr 10/03/18 11:33 10/03/18 11:46 Normal Saline IV 10/03/18 12:33 999 mls/hr .Bolus ONE Administration Iopamidol 100 ml 10/03/18 12:52 10/03/18 12:52 Isovue Multipack-370 (76%) IVPUSH 10/03/18 12:53 100 ml ONETIME STA Administration Morphine Sulfate 4 mg 10/03/18 11:33 10/03/18 11:46 Morphine IVPUSH 10/03/18 11:34 4 mg ONETIME ONE Administration Ondansetron HCl 4 mg 10/03/18 11:33 10/03/18 11:46 Zofran IVPUSH 10/03/18 11:34 4 mg ONETIME ONE Administration Departure - Departure Time of Disposition: 13:31 Disposition: Home, Self-Care 01 Condition: Good Clinical Impression: Ventral hernia without obstruction or gangrene - Discharge Information *PRESCRIPTION DRUG MONITORING PROGRAM REVIEWED*: No *COPY OF PRESCRIPTION DRUG MONITORING REPORT IN PATIENT VONNIE: No Prescriptions: traMADol HCl [Tramadol HCl] 50 mg PO Q6H PRN #16 tablet PRN Reason: Pain Referrals: PCP,None [Primary Care Provider] - Forms: ED Department Discharge Additional Instructions: The following information is given to patients seen in the emergency department who are being discharged to home. This information is to outline your options for follow-up care. We provide all patients seen in our emergency department with a follow-up referral. The need for follow-up, as well as the timing and circumstances, are variable depending upon the specifics of your emergency department visit. If you don't have a primary care physician on staff, we will provide you with a referral. We always advise you to contact your personal physician following an emergency department visit to inform them of the circumstance of the visit and for follow-up with them and/or the need for any referrals to a consulting specialist. The emergency department will also refer you to a specialist when appropriate. This referral assures that you have the opportunity for follow-up care with a specialist. All of these measure are taken in an effort to provide you with optimal care, which includes your follow-up. Under all circumstances we always encourage you to contact your private physician who remains a resource for coordinating your care. When calling for follow-up care, please make the office aware that this follow-up is from your recent emergency room visit. If for any reason you are refused follow-up, please contact the [facility] Emergency Department at and asked to speak to the emergency department charge nurse. Take meds as directed, follow up with your primary care physician, return to ER if symptoms worsen or change. [facility] - General Surgery Professional Building [address] [place] [address], [address] [place] [address] - My Orders Last 24 Hours: My Active Orders 10/03/18 11:33 Sodium Chloride 0.9% [Saline Flush] 10 ml FLUSH ASDIRECTED PRN Sodium Chloride 0.9% [Saline Flush] 2.5 ml FLUSH ASDIRECTED PRN Saline Lock Insert [OM.PC] Stat 10/03/18 11:34 UA W/MICROSCOPIC [URIN] Stat - Assessment/Plan Last 24 Hours: My Active Orders 10/03/18 11:33 Sodium Chloride 0.9% [Saline Flush] 10 ml FLUSH ASDIRECTED PRN Sodium Chloride 0.9% [Saline Flush] 2.5 ml FLUSH ASDIRECTED PRN Saline Lock Insert [OM.PC] Stat 10/03/18 11:34 UA W/MICROSCOPIC [URIN] Stat
[2018-10-03 12:08] LABS: CHLORIDE,CL 107 mmol/L (98-107); SODIUM,NA 142 mmol/L (136-148)
[2018-10-03] MEDS ORDERED: Iopamidol 755 MG/ML 500 ML Multipack Bottle IVPUSH STA (12:52)
--- NOTE | 2018-10-03 13:22 | CT ---
INDICATION: ABDOMINAL PAIN. BELLY BULGE. ONSET OF PAIN SYMPTOMS 3 DAYS AGO. TECHNIQUE: CT abdomen and pelvis acquired with i.v. 100 mL Isovue 370. Coronal and sagittal reformats were obtained. COMPARISON: None. FINDINGS: Test Analyst CT images: Nonobstructive bowel gas pattern. Lower chest: Imaged lung bases are clear. No free air. No pleural or pericardial effusions. Liver: Tiny 6 mm low-density focus in the right hepatic lobe on series 201, image 25, indeterminate. This may represent a small liver cyst or hemangioma. Remainder of the liver parenchyma normal. Liver capsule smoothly marginated. Spleen: Unremarkable. Pancreas: Unremarkable. Gallbladder and bile ducts: Unremarkable. Kidneys: Unremarkable. No kidney or ureteral stones and no hydronephrosis seen. Adrenal glands: Unremarkable. GI tract: Likely small paraesophageal hernia. Stomach and duodenum otherwise unremarkable. Duodenum crosses midline. Loops of large and small bowel are normal in caliber. Normal appendix identified in the right lower quadrant. No abnormal colonic wall thickening, mesenteric fat stranding, or interloop ascites. Vascular: Unremarkable. Lymph nodes: Unremarkable. Miscellaneous: Unremarkable. No pneumoperitoneum is seen. No significant ascites is noted. Skin marker in the midline upper anterior abdominal wall on series 201, image 39. No adjacent subcutaneous mass. Tiny fat containing ventral hernia defect, series 201, image 53. Pelvic Organs: Unremarkable. Bones: Unremarkable for age. Multilevel lumbar spine degenerative disk disease with marginal osteophytes, most significant at L4-L5 and L5-S1. No compression fracture. No suspicious lytic or sclerotic osseous lesion. Possible degenerative partial fusion of the SI joints. IMPRESSION: 1. No acute abnormality in the abdomen or pelvis. No free air or free fluid. 2. Likely small paraesophageal hernia defect. No bowel obstruction. 3. Normal appendix. 4. Skin marker in the anterior upper abdominal wall. Just inferior to the skin marker on sagittal reformat series 204 image 89, there is a tiny fat containing hernia defect with minimal degree of fat stranding. This tiny hernia defect is identified on axial image 53. Dictated by Curtis Badillo MD @ 10/03/2018 1:19:28 PM Please note that all CT scans at this facility use dose modulation, iterative reconstruction, and/or weight-based dosing when appropriate to reduce radiation dose to as low as reasonably achievable. Dictated by: Curtis Badillo MD @ 10/03/2018 13:19:45 (Electronically Signed)
[2018-10-03 13:29] VITALS: BP 127/76
== END 2018-10-03 14:07 | disposition home or self-care (01) ==
LOC: MW.ED 11:19
DX: K43.9 Ventral hernia without obstruction or gangrene (principal); E78.00 Pure hypercholesterolemia, unspecified; I10 Essential (primary) hypertension; Z88.8 Allergy status to other drugs, medicaments and biological substances; Z79.82 Long term (current) use of aspirin
CPT/HCPCS: 36415; 74177; 80053; 83605; 83690; 85025; 93005; 96361; 96374; 96375; 96376; 99284; J2270; J2405; J7040; Q9967; 99283

== ENCOUNTER 2018-12-03 13:08 | Emergency (ER) | payer OTHER, SELFPAY ==
[2018-12-03] MEDS ORDERED: Sodium Chloride 0.9% 1,000 ML IV ONE (13:14)
[2018-12-03] MEDS ORDERED: Sodium Chloride 0.9% 10 ML Syringe FLUSH PRN (13:15)
[2018-12-03] MEDS ORDERED: Sodium Chloride 0.9% 2.5 ML Syringe FLUSH PRN (13:15)
--- NOTE | 2018-12-03 13:32 | EDM.PDOC ---
ED HPI GENERAL MEDICAL PROBLEM - General Chief Complaint: Abdominal Pain Stated Complaint: ABDOMINAL PAIN Time Seen by Provider: 12/03/18 13:09 Source of Information: Reports: Patient History Limitations: Reports: No Limitations - History of Present Illness INITIAL COMMENTS - FREE TEXT/NARRATIVE: History of present illness: []Patient has had 3 weeks of abdominal pain and was diagnosed with an abdominal wall with all fat containing hernia in the ED by CT scan. He was referred to general surgery but had to apply for insurance before he could be seen. When his insurance was approved he was referred to another physician who was not a surgeon. Patient continues with the same abdominal pain he states this morning he was nauseated and vomited which is different. He denies any fevers, diarrhea or bloody stools. Review of systems: As per history of present illness and below otherwise all systems reviewed and negative. Past medical history: As per history of present illness and as reviewed below otherwise noncontributory. Surgical history: As per history of present illness and as reviewed below otherwise noncontributory. Social history: No reported history of drug or alcohol abuse. Family history: As per history of present illness and as reviewed below otherwise noncontributory. Physical exam: General: Well developed, well nourished in NAD HEENT: Atraumatic, normocephalic, pupils reactive, negative for conjunctival pallor or scleral icterus, mucous membranes moist, throat clear, neck supple, nontender, trachea midline. Lungs: Clear to auscultation, breath sounds equal bilaterally, chest nontender. Heart: S1S2, regular, negative for clicks, rubs, or JVD. Abdomen: NABS, Soft, nondistended, nontender. Negative for masses or hepatosplenomegaly. Negative for costovertebral tenderness. Pelvis: Stable nontender. Genitourinary: Deferred. Rectal: Deferred. Extremities: Atraumatic, negative for cords or calf pain. Neurovascular unremarkable. Neuro: Awake, alert, oriented. Cranial nerves II through XII unremarkable. Cerebellum unremarkable. Motor and sensory unremarkable throughout. Exam nonfocal. Skin:warm and dry Diagnostics: CBC, chemistry, lipase, troponin, lactic acid all within normal limits Therapeutics: Normal saline, morphine, Zofran ED Course: Unremarkable Impression: Abdominal wall hernia, medication refill Prescriptions: Zofran, metoprolol Plan: Follow-up with general surgery Tylenol or ibuprofen for pain and Zofran for nausea and vomiting Definitive disposition and diagnosis as appropriate pending reevaluation and review of above. Abdominal Pain Score (Numeric/FACES): 8 - Related Data Allergies Allergy/AdvReac Type Severity Reaction Status Date / Time cephalexin [From Keflex] Allergy Hives Verified 12/03/18 13:16 Home Meds: Home Meds Aspirin 81 mg PO DAILY 08/28/18 [History] Metoprolol Succinate 50 mg PO BID 12/03/18 [History] Metoprolol Succinate [Toprol XL 50mg] 50 mg PO BEDTIME #30 tab.er 12/03/18 [Rx] Ondansetron HCl [Zofran] 4 mg PO Q4HR #12 tablet 12/03/18 [Rx] Past Medical History - Past Health History Medical/Surgical History: Denies Medical/Surgical History HEENT History: Reports: None Cardiovascular History: Reports: High Cholesterol, Hypertension Other Cardiovascular History: Weak heart; chest pains Respiratory History: Reports: Pneumonia, Recurrent, Other (See Below) Other Respiratory History: Aspiration Pneumonia Gastrointestinal History: Reports: Bowel Obstruction Genitourinary History: Reports: None Musculoskeletal History: Reports: None Neurological History: Reports: None Psychiatric History: Reports: None Endocrine/Metabolic History: Reports: None Hematologic History: Reports: None Immunologic History: Reports: None Oncologic (Cancer) History: Reports: None Dermatologic History: Reports: None - Infectious Disease History Infectious Disease History: Reports: Chicken Pox - Past Surgical History Head Surgeries/Procedures: Reports: None HEENT Surgical History: Reports: Other (See Below) Other HEENT Surgeries/Procedures: Septum repair of bilateral nare Cardiovascular Surgical History: Reports: None Respiratory Surgical History: Reports: None GI Surgical History: Reports: Hernia, Abdominal, Other (See Below) Other GI Surgeries/Procedures: Gerd surgery Male Surgical History: Reports: None Endocrine Surgical History: Reports: None Neurological Surgical History: Reports: None Musculoskeletal Surgical History: Reports: Other (See Below) Other Musculoskeletal Surgeries/Procedures:: fasciotomy, RLE, ruptured Rodrigues's cyst, skin graft Oncologic Surgical History: Reports: None Dermatological Surgical History: Reports: None Social & Family History - Family History Family Medical History: Noncontributory - Tobacco Use Smoking Status *Q: Never Smoker Second Hand Smoke Exposure: No - Caffeine Use Caffeine Use: Reports: Coffee Caffeine Use Comment: 1cup/day - Recreational Drug Use Recreational Drug Use: No ED ROS GENERAL - Review of Systems Review Of Systems: ROS reveals no pertinent complaints other than HPI. ED EXAM, GI/ABD - Physical Exam Exam: See Below (See history of present illness) Course - Vital Signs Last Recorded V/S: Last Vital Signs Temp 97.3 F 12/03/18 13:20 Pulse 59 L 12/03/18 14:33 Resp 12 12/03/18 14:33 BP 138/87 12/03/18 14:33 Pulse Ox 97 12/03/18 14:33 - Orders/Labs/Meds Orders: Active Orders 24 hr Category Date Time Status EKG Documentation Completion [RC] STAT Care 12/03/18 13:14 Active Chest 1V Frontal [CR] Stat Exams 12/03/18 14:24 Taken UA W/MICROSCOPIC [URIN] Stat Lab 12/03/18 13:15 Ordered Sodium Chloride 0.9% [Saline Flush] Med 12/03/18 13:15 Active 10 ml FLUSH ASDIRECTED PRN Sodium Chloride 0.9% [Saline Flush] Med 12/03/18 13:15 Active 2.5 ml FLUSH ASDIRECTED PRN Saline Lock Insert [OM.PC] Stat Oth 12/03/18 13:14 Ordered Medication Orders Sodium Chloride (Saline Flush) 10 ml FLUSH ASDIRECTED PRN PRN Reason: Keep Vein Open Sodium Chloride (Saline Flush) 2.5 ml FLUSH ASDIRECTED PRN PRN Reason: Keep Vein Open Labs: Laboratory Tests 12/03/18 12/03/18 12/03/18 Range/Units 13:26 13:26 13:26 WBC 7.41 (4.0-11.0) K/uL RBC 4.81 (4.50-5.90) M/uL Hgb 14.7 (13.0-17.0) g/dL Hct 44.0 (38.0-50.0) % MCV 91.5 (80.0-98.0) fL MCH 30.6 (27.0-32.0) pg MCHC 33.4 (31.0-37.0) g/dL RDW Std Deviation 43.6 (28.0-62.0) fl RDW Coeff of Francine 13 (11.0-15.0) % Plt Count 201 (150-400) K/uL MPV 10.80 (7.40-12.00) fL Neut % (Auto) 58.9 (48.0-80.0) % Lymph % (Auto) 28.9 (16.0-40.0) % [place] % (Auto) 9.7 (0.0-15.0) % Eos % (Auto) 2.2 (0.0-7.0) % Baso % (Auto) 0.3 (0.0-1.5) % Neut # (Auto) 4.4 (1.4-5.7) K/uL Lymph # (Auto) 2.1 (0.6-2.4) K/uL [place] # (Auto) 0.7 (0.0-0.8) K/uL Eos # (Auto) 0.2 (0.0-0.7) K/uL Baso # (Auto) 0.0 (0.0-0.1) K/uL Nucleated RBC % 0.0 /100WBC Nucleated RBCs # 0 K/uL Lactate 0.9 (0.20-2.00) mmol/L Sodium 140 (136-148) mmol/L Potassium 4.2 (3.5-5.1) mmol/L Chloride 102 (98-107) mmol/L Carbon Dioxide 30.9 (21.0-32.0) mmol/L BUN 18 (7.0-18.0) mg/dL Creatinine 1.2 (0.8-1.3) mg/dL Est Cr Clr Drug Dosing 74.55 mL/min Estimated GFR (MDRD) > 60.0 ml/min Glucose 127 H (74-106) mg/dL Calcium 8.7 (8.5-10.1) mg/dL Total Bilirubin 0.6 (0.2-1.0) mg/dL AST 16 (15-37) IU/L ALT 35 (14-63) IU/L Alkaline Phosphatase 89 (46-116) U/L Troponin I < 0.050 (0.000-0.056) ng/mL Total Protein 7.0 (6.4-8.2) g/dL Albumin 3.8 (3.4-5.0) g/dL Globulin 3.2 (2.6-4.0) g/dL Albumin/Globulin Ratio 1.2 (0.9-1.6) Lipase 88 (73-393) U/L Meds: Medications Generic Name Dose Route Start Last Admin Trade Name Freq PRN Reason Stop Dose Admin Sodium Chloride 10 ml 12/03/18 13:15 Saline Flush FLUSH ASDIRECTED PRN Keep Vein Open Sodium Chloride 2.5 ml 12/03/18 13:15 Saline Flush FLUSH ASDIRECTED PRN Keep Vein Open Discontinued Medications Generic Name Dose Route Start Last Admin Trade Name Freq PRN Reason Stop Dose Admin Sodium Chloride 1,000 mls @ 999 mls/hr 12/03/18 13:14 12/03/18 13:40 Normal Saline IV 12/03/18 14:14 999 mls/hr .Bolus ONE Administration Morphine Sulfate 6 mg 12/03/18 13:55 12/03/18 14:07 Morphine IM 12/03/18 13:56 Not Given ONETIME ONE Morphine Sulfate 6 mg 12/03/18 14:07 12/03/18 14:15 Morphine IVPUSH 12/03/18 14:08 6 mg ONETIME ONE Administration Ondansetron HCl 4 mg 12/03/18 13:55 12/03/18 14:15 Zofran IVPUSH 12/03/18 13:56 4 mg ONETIME ONE Administration Departure - Departure Time of Disposition: 15:01 Disposition: Home, Self-Care 01 Condition: Good Clinical Impression: Abdominal wall hernia, Medication refill - Discharge Information *PRESCRIPTION DRUG MONITORING PROGRAM REVIEWED*: No *COPY OF PRESCRIPTION DRUG MONITORING REPORT IN PATIENT VONNIE: No Prescriptions: Ondansetron HCl [Zofran] 4 mg PO Q4HR #12 tablet Metoprolol Succinate [Toprol XL 50mg] 50 mg PO BEDTIME #30 tab.er Referrals: PCP,None [Primary Care Provider] - James Ward MD [Physician] - (next available apt.) Forms: ED Department Discharge Additional Instructions: The following information is given to patients seen in the emergency department who are being discharged to home. This information is to outline your options for follow-up care. We provide all patients seen in our emergency department with a follow-up referral. The need for follow-up, as well as the timing and circumstances, are variable depending upon the specifics of your emergency department visit. If you don't have a primary care physician on staff, we will provide you with a referral. We always advise you to contact your personal physician following an emergency department visit to inform them of the circumstance of the visit and for follow-up with them and/or the need for any referrals to a consulting specialist. The emergency department will also refer you to a specialist when appropriate. This referral assures that you have the opportunity for follow-up care with a specialist. All of these measure are taken in an effort to provide you with optimal care, which includes your follow-up. Under all circumstances we always encourage you to contact your private physician who remains a resource for coordinating your care. When calling for follow-up care, please make the office aware that this follow-up is from your recent emergency room visit. If for any reason you are refused follow-up, please contact the [facility] Emergency Department at and asked to speak to the emergency department charge nurse. [facility] - General Surgery Professional Building [address] [place] [address], [address] [place] [address] - My Orders Last 24 Hours: My Active Orders 12/03/18 13:14 EKG Documentation Completion [RC] STAT Saline Lock Insert [OM.PC] Stat 12/03/18 13:15 UA W/MICROSCOPIC [URIN] Stat Sodium Chloride 0.9% [Saline Flush] 10 ml FLUSH ASDIRECTED PRN Sodium Chloride 0.9% [Saline Flush] 2.5 ml FLUSH ASDIRECTED PRN 12/03/18 14:24 Chest 1V Frontal [CR] Stat - Assessment/Plan Last 24 Hours: My Active Orders 12/03/18 13:14 EKG Documentation Completion [RC] STAT Saline Lock Insert [OM.PC] Stat 12/03/18 13:15 UA W/MICROSCOPIC [URIN] Stat Sodium Chloride 0.9% [Saline Flush] 10 ml FLUSH ASDIRECTED PRN Sodium Chloride 0.9% [Saline Flush] 2.5 ml FLUSH ASDIRECTED PRN 12/03/18 14:24 Chest 1V Frontal [CR] Stat
[2018-12-03] MEDS ORDERED: Morphine 10 MG/ML Syringe IM ONE (13:55)
[2018-12-03] MEDS ORDERED: Ondansetron 4 MG/2 ML SDV IVPUSH ONE (13:55)
[2018-12-03 14:02] LABS: CHLORIDE,CL 102 mmol/L (98-107); SODIUM,NA 140 mmol/L (136-148)
[2018-12-03] MEDS ORDERED: Morphine 10 MG/ML Syringe IVPUSH ONE (14:07)
--- NOTE | 2018-12-03 15:03 | CR ---
EXAMINATION: Portable chest radiograph. HISTORY: Shortness of breath. FINDINGS: The trachea is midline. Heart is borderline in size for technique. The cardiomediastinal silhouette is within normal limits. No pulmonary infiltrates, effusions or pneumothorax. Osseous structures appear unremarkable. IMPRESSION: No acute cardiopulmonary process.
[2018-12-03 15:36] VITALS: BP 132/81
== END 2018-12-03 15:36 | disposition home or self-care (01) ==
LOC: MW.ED 13:08
DX: K43.9 Ventral hernia without obstruction or gangrene (principal); Z76.0 Encounter for issue of repeat prescription; E78.00 Pure hypercholesterolemia, unspecified; I10 Essential (primary) hypertension; Z88.1 Allergy status to other antibiotic agents; Z79.899 Other long term (current) drug therapy; Z79.82 Long term (current) use of aspirin
CPT/HCPCS: 36415; 71045; 80053; 83605; 83690; 84484; 85025; 93005; 96361; 96374; 96375; 99284; J2270; J2405; J7040

== ENCOUNTER 2019-03-30 08:00 | Inpatient (IN) | payer MEDICAID, OTHER ==
[2019-03-30] MEDS ORDERED: fentaNYL 100 MCG/2 ML SDV ONE (12:43)
[2019-03-30] MEDS ORDERED: Propofol 200 MG/20 ML SDV ONE ×2 (12:43→14:19)
[2019-03-30] MEDS ORDERED: Midazolam 1 MG/ML 2 ML SDV ONE (12:43)
--- NOTE | 2019-03-30 12:43 | PCM.PREANE ---
Preanesthetic Assessment - Anesthesia/Transfusion/Family Hx Anesthesia History: Prior Anesthesia Reaction Other Type of Anesthesia Reaction Comment: had urinary retention, and was told he "almost quit breathing" after septop Family History of Anesthesia Reaction: No Transfusion History: No Prior Transfusion(s) Intubation History: Unknown - Review of Systems General: No Symptoms Pulmonary: No Symptoms Cardiovascular: No Symptoms Gastrointestinal: No Symptoms Neurological: No Symptoms Other: Reports: None - Physical Assessment Vital Signs: Last Vital Signs Temp 36.1 C 03/30/19 11:56 Pulse 77 03/30/19 11:56 Resp 16 03/30/19 11:56 BP 162/90 H 03/30/19 11:56 Pulse Ox 97 03/30/19 11:56 Height: 6 ft Weight: 144.696 kg ASA Class: 3 Mental Status: Alert & Oriented x3 Airway Class: Mallampati = 2 Dentition: Reports: Normal Dentition Thyro-Mental Finger Breadths: 3 Mouth Opening Finger Breadths: 2 ROM/Head Extension: Full Lungs: Clear to Auscultation, Normal Respiratory Effort Cardiovascular: Regular Rate, Regular Rhythm - Lab Values: Laboratory Last Values POC Glucose 107 mg/dL (60-110) 03/30/19 12:09 - Allergies Allergies/Adverse Reactions: Allergies Allergy/AdvReac Type Severity Reaction Status Date / Time cephalexin [From Keflex] Allergy Hives Verified 03/30/19 12:21 - Blood Blood Available: No - Anesthesia Plan Pre-Op Medication Ordered: None - Acknowledgements Anesthesia Type Planned: Spinal (general anesthesia back-up plan) Pt an Appropriate Candidate for the Planned Anesthesia: Yes Alternatives and Risks of Anesthesia Discussed w Pt/Guardian: Yes Pt/Guardian Understands and Agrees with Anesthesia Plan: Yes PreAnesthesia Questionnaire - Past Health History Medical/Surgical History: Denies Medical/Surgical History HEENT History: Reports: None Cardiovascular History: Reports: Arrhythmia, High Cholesterol, Hypertension, Other (See Below) (nonischemic cardiomyopathy) Other Cardiovascular History: wore a monitor for awhile- had 1 episode of arrythmia (unknown type)- will have MRI on 03/25/19, cardiac cath 09/15 completely normal per patient Respiratory History: Reports: Sleep Apnea Other Respiratory History: unable to tolerate CPAP or BiPAP Gastrointestinal History: Reports: GERD, Hiatal Hernia Other Gastrointestinal History: shalom GERD for 20 years Genitourinary History: Reports: None Musculoskeletal History: Reports: Arthritis, Fracture Other Musculoskeletal History: hx of fx finger and arm as a child Neurological History: Reports: Migraines, Other (See Below) Other Neuro History: hx of motion sickness and claustrophobia Psychiatric History: Reports: None Endocrine/Metabolic History: Reports: Diabetes, Type II, Obesity/BMI 30+ Other Endocrine/Metabolic History: has A1C of 6.4, was put on Metformin- A1C is now 5.3 Hematologic History: Reports: None Immunologic History: Reports: None Oncologic (Cancer) History: Reports: None Dermatologic History: Reports: None - Infectious Disease History Infectious Disease History: Reports: Chicken Pox - Past Surgical History Head Surgeries/Procedures: Reports: None HEENT Surgical History: Reports: Naso-Sinus Surgery Other HEENT Surgeries/Procedures: Septum repair of bilateral nare Cardiovascular Surgical History: Reports: Other (See Below) Other Cardiovascular Surgeries/Procedures: hx of Angiogram- no blockage found Respiratory Surgical History: Reports: None GI Surgical History: Reports: [place] Fundoplication Other GI Surgeries/Procedures: Gerd surgery Male Surgical History: Reports: None Endocrine Surgical History: Reports: None Neurological Surgical History: Reports: None Musculoskeletal Surgical History: Reports: Other (See Below) Other Musculoskeletal Surgeries/Procedures:: hx of Fasciotomy right calf- had cyst behind knee rupture causing bleeding into calf area- causing Compartment Syndrome Oncologic Surgical History: Reports: None Dermatological Surgical History: Reports: None - SUBSTANCE USE Smoking Status *Q: Former Smoker Tobacco Use Within Last Twelve Months: No Recreational Drug Use History: Yes Recreational Drug Type: Reports: Marijuana/Hashish - HOME MEDS Home Medications: Home Meds Aspirin 81 mg PO DAILY 08/28/18 [History] Metoprolol Succinate 25 mg PO BID 12/03/18 [History] atorvaSTATin Calcium [Atorvastatin Calcium] 40 mg PO BEDTIME 03/24/19 [History] metFORMIN HCl [Metformin HCl ER] 500 mg PO QAM 03/24/19 [History] - CURRENT (IN HOUSE) MEDS Current Meds: Current Medications Clindamycin Phosphate 900 mg/ (Premix) 50 mls @ 100 mls/hr IV ONETIME JEFFERY Discontinued Medications Tranexamic Acid (Cyklokapron) 2,000 mg IV ONETIME ONE Stop: 03/30/19 12:01 Tranexamic Acid (Cyklokapron) Confirm Administered Dose 1,000 mg .ROUTE .STK- MED ONE Stop: 03/30/19 08:23 Tranexamic Acid (Cyklokapron) Confirm Administered Dose 1,000 mg .ROUTE .STK- MED ONE Stop: 03/30/19 08:25
[2019-03-30] MEDS ORDERED: Lidocaine 2% 5 ML SDV ONE (12:47)
[2019-03-30] MEDS: Clindamycin Phosphate in D5W 900 MG in Premix Bag 1 BAG IV SCH ×8 (13:04→22:03)
[2019-03-30] MEDS ORDERED: Docusate Sodium 100 MG Cap PO PRN (13:15)
[2019-03-30] MEDS ORDERED: Ondansetron 4 MG/2 ML SDV IVPUSH PRN (13:15)
[2019-03-30] MEDS ORDERED: Aluminum Hydroxide/Magnesium Hydroxide/Simethicone Susp 30 ML Cup PO PRN (13:15)
[2019-03-30] MEDS ORDERED: Bisacodyl 10 MG Supp RECTAL PRN (13:15)
[2019-03-30] MEDS ORDERED: diphenhydrAMINE 25 MG Cap PO PRN (13:15)
[2019-03-30] MEDS ORDERED: Sodium Chloride 0.9% 10 ML Syringe FLUSH PRN (13:15)
[2019-03-30] MEDS ORDERED: Sodium Chloride 0.9% 2.5 ML Syringe FLUSH PRN (13:15)
--- NOTE | 2019-03-30 13:17 | PCM.OPNOTE ---
- General Post-Op/Procedure Note Date of Surgery/Procedure: 03/30/19 Operative Procedure(s): ORIF left ankle lateral malleolus and syndesmosis Findings: comminution Pre Op Diagnosis: left ankle lateral malleolus fracture and syndesmotic disruption Post-Op Diagnosis: same Anesthesia Technique: General LMA Primary Surgeon: Tony Kwan Mai Bit Sander: Nerissa Mitchell EBL in mLs: 10 Complications: none Condition: Good
[2019-03-30] MEDS ORDERED: Phenylephrine/Normal Saline 100 MCG/ML 10 ML Syringe ONE (14:24)
--- NOTE | 2019-03-30 15:03 | PCM.OPNOTE ---
- General Post-Op/Procedure Note Date of Surgery/Procedure: 03/30/19 Operative Procedure(s): left anterior total hip arthroplasty Findings: severe OA Pre Op Diagnosis: left hip osteoarthritis Post-Op Diagnosis: same Anesthesia Technique: Moderate Sedation, Spinal Primary Surgeon: Tony Kwan Mai Safety And Occupational Health Manager: Rubi Wong Safety And Occupational Health Manager: Nerissa Mitchell Pathology: femoral head EBL in mLs: 400 Complications: none Condition: Stable
[2019-03-30] MEDS: Morphine 4 MG/ML Syringe IVPUSH PRN (16:36)
--- NOTE | 2019-03-30 16:41 | PCM.CONS ---
<Rebecca Kerr M - Last Filed: 03/30/19 16:36> H&P History of Present Illness - General Date of Service: 03/30/19 Admit Problem/Dx: Admission Diagnosis/Problem Admission Diagnosis/Problem Hip replacement planned Source of Information: Patient, Old Records History Limitations: Reports: No Limitations - History of Present Illness Initial Comments - Free Text/Narative: This 58 year old male with pmh of obesity, HTN, DM type 2, and non ischemic cardiomyopathy with LVEF of 40% presented today for L hip arthroplasty with Dr Vásquez. Hospitalist service consulted for medical management. Chandu has recently arrived to the medical floor from the PACU. He is alert and oriented. Doing well. mild hip pain. He denies chest pain or SOB. No palpitations, dizziness or lightheadedness. He reports he is feeling about his normal today. He reports he has recently been worked up for syncope and palpitations. He had a cardiac MRI with Dr Cui in [place] last week. He is awaiting results. Recent ECHO revealed EF of 40%. Angiogram in [place] was negative for CAD. He follows with Cardiology here in [place] with Dr Krishnan. He reports he has lost approximately 17 lbs as of recent, most recent A1c is 5.5. Takes Metformin daily. - Related Data Allergies/Adverse Reactions: Allergies Allergy/AdvReac Type Severity Reaction Status Date / Time cephalexin [From Keflex] Allergy Hives Verified 03/30/19 12:21 Home Medications: Home Meds Aspirin 81 mg PO DAILY 08/28/18 [History] Metoprolol Succinate 25 mg PO BID 12/03/18 [History] atorvaSTATin Calcium [Atorvastatin Calcium] 40 mg PO BEDTIME 03/24/19 [History] metFORMIN HCl [Metformin HCl ER] 500 mg PO QAM 03/24/19 [History] Past Medical History - Past Health History Medical/Surgical History: Denies Medical/Surgical History HEENT History: Reports: None Cardiovascular History: Reports: Arrhythmia, Heart Failure (nonichemic cardiomyopathy, EF 40%. Zio patch revealed NSVT.), High Cholesterol, Hypertension, Other (See Below) (nonischemic cardiomyopathy) Other Cardiovascular History: wore a monitor for awhile- had 1 episode of arrythmia (unknown type)- will have MRI on 03/25/19, cardiac cath 09/15 completely normal per patient Respiratory History: Reports: Sleep Apnea Other Respiratory History: unable to tolerate CPAP or BiPAP due to PTSD with things covering his face. Gastrointestinal History: Reports: GERD, Hiatal Hernia Other Gastrointestinal History: shalom GERD for 20 years Genitourinary History: Reports: None Musculoskeletal History: Reports: Arthritis, Fracture Other Musculoskeletal History: hx of fx finger and arm as a child Neurological History: Reports: Migraines, Other (See Below) Other Neuro History: hx of motion sickness and claustrophobia Psychiatric History: Reports: None Endocrine/Metabolic History: Reports: Diabetes, Type II, Obesity/BMI 30+ Other Endocrine/Metabolic History: has A1C of 6.4, was put on Metformin- A1C is now 5.3 Hematologic History: Reports: None Immunologic History: Reports: None Oncologic (Cancer) History: Reports: None Dermatologic History: Reports: None - Infectious Disease History Infectious Disease History: Reports: Chicken Pox - Past Surgical History Head Surgeries/Procedures: Reports: None HEENT Surgical History: Reports: Naso-Sinus Surgery Other HEENT Surgeries/Procedures: Septum repair of bilateral nare Cardiovascular Surgical History: Reports: Other (See Below) Other Cardiovascular Surgeries/Procedures: hx of Angiogram- no blockage found Respiratory Surgical History: Reports: None GI Surgical History: Reports: Azalia Fundoplication Other GI Surgeries/Procedures: Gerd surgery Male Surgical History: Reports: None Endocrine Surgical History: Reports: None Neurological Surgical History: Reports: None Musculoskeletal Surgical History: Reports: Other (See Below) Other Musculoskeletal Surgeries/Procedures:: hx of Fasciotomy right calf- had cyst behind knee rupture causing bleeding into calf area- causing Compartment Syndrome Oncologic Surgical History: Reports: None Dermatological Surgical History: Reports: None Social & Family History - Family History Family Medical History: Noncontributory - Tobacco Use Smoking Status *Q: Former Smoker Tobacco Use Comment: quit in 1980 - Caffeine Use Caffeine Use: Reports: Coffee Caffeine Use Comment: 1cup/day - Alcohol Use Alcohol Use History: Yes Alcohol Use Comment: quit in 2001 - Recreational Drug Use Recreational Drug Use: Yes Drug Use in Last 12 Months: Yes Recreational Drug Type: Reports: Marijuana/Hashish Recreational Drug Use Frequency: Monthly - Living Situation & Occupation Living situation: Reports: Occupation: Unemployed H&P Review of Systems - Review of Systems: Review Of Systems: See Below General: Reports: No Symptoms. Denies: Fever, Chills, Malaise, Weakness HEENT: Reports: No Symptoms. Denies: Headaches, Sinus Congestion, Sore Throat Pulmonary: Reports: No Symptoms. Denies: Shortness of Breath Cardiovascular: Reports: No Symptoms. Denies: Chest Pain Gastrointestinal: Reports: No Symptoms. Denies: Abdominal Pain, Black Stool, Bloody Stool, Nausea, Vomiting Genitourinary: Reports: No Symptoms. Denies: Dysuria, Frequency, Burning Musculoskeletal: Reports: No Symptoms Skin: Reports: No Symptoms Psychiatric: Reports: No Symptoms Neurological: Reports: No Symptoms Hematologic/Lymphatic: Reports: No Symptoms Immunologic: Reports: No Symptoms Exam - Exam Exam: See Below - Vital Signs Vital Signs: Last Vital Signs Temp 96.8 F 03/30/19 15:26 Pulse 55 L 03/30/19 15:53 Resp 16 03/30/19 15:53 BP 124/70 03/30/19 15:53 Pulse Ox 97 03/30/19 15:53 Weight: 144.696 kg - Exam General: Alert, Oriented, Cooperative HEENT: Conjunctiva Clear, Mucosa Moist & Allyn, Pupils Equal, Pupils Reactive Neck: Supple, Trachea Midline Lungs: Clear to Auscultation, Normal Respiratory Effort Cardiovascular: Regular Rate, Regular Rhythm, Normal S1, Normal S2, Systolic Murmur GI/Abdominal Exam: Normal Bowel Sounds, Soft, Non-Tender Extremities: Normal Inspection, Normal Range of Motion, Non-Tender, No Pedal Edema Skin: Incision (L hip) Neurological: Cranial Nerves Intact Neuro Extensive - Mental Status: Alert, Oriented x3 Neuro Extensive - Motor, Sensory, Reflexes: CN II-XII Intact Psychiatric: Alert, Normal Affect, Normal Mood - Patient Data Lab Results Last 24 hrs: Laboratory Results - last 24 hr 03/30/19 Range/Units 12:09 POC Glucose 107 (60-110) mg/dL Consult PN Assessment/Plan Procedures: Procedures AIRWAY INHALATION TREATMENT (07/23/18) ASSAY OF LACTIC ACID (12/03/18) ASSAY OF LIPASE (12/03/18) ASSAY OF NATRIURETIC PEPTIDE (07/23/18) ASSAY OF TROPONIN QUANT (12/03/18) CHEST X-RAY 2VW FRONTAL&LATL (10/03/16) COMPLETE CBC W/AUTO DIFF WBC (03/09/19) COMPREHEN METABOLIC PANEL (12/10/18) CT ABD & PELV W/CONTRAST (10/03/18) CULTURE SCREEN ONLY (07/23/18) ELECTROCARDIOGRAM TRACING (03/09/19) EMERGENCY DEPT VISIT (12/03/18) EMERGENCY DEPT VISIT (08/28/18) EMERGENCY DEPT VISIT (07/22/17) EMERGENCY DEPT VISIT (10/20/16) EMERGENCY DEPT VISIT (10/03/16) EXTREMITY STUDY (02/22/18) GLYCOSYLATED HEMOGLOBIN TEST (03/09/19) HYDRATE IV INFUSION ADD-ON (12/03/18) HYDRATION IV INFUSION INIT (10/03/16) INFLUENZA ASSAY W/OPTIC (07/23/18) LIPID PANEL (12/10/18) METABOLIC PANEL TOTAL CA (03/09/19) PROTHROMBIN TIME (03/09/19) ROUTINE VENIPUNCTURE (03/09/19) STREP A ASSAY W/OPTIC (07/23/18) THER/PROPH/DIAG INJ IV PUSH (12/03/18) THER/PROPH/DIAG INJ SC/IM (08/28/18) TX/PRO/DX INJ NEW DRUG ADDON (12/03/18) TX/PRO/DX INJ SAME DRUG INTERNAL COMBUSTION ENGINE ASSEMBLER (10/03/18) URINALYSIS AUTO W/O SCOPE (03/09/19) X-RAY EXAM CHEST 1 VIEW (12/03/18) X-RAY EXAM CHEST 2 VIEWS (03/09/19) X-RAY EXAM HIPS BI 2 VIEWS (12/31/18) X-RAY EXAM KNEE 4 OR MORE (01/07/19) X-RAY EXAM OF ANKLE (02/22/18) X-RAY EXAM OF KNEE 3 (10/20/16) X-RAY EXAM OF LOWER LEG (02/22/18) (1) S/P hip replacement SNOMED Code(s): 349931391, 313906954, 544278017, 326042953 Code(s): Z96.649 - PRESENCE OF UNSPECIFIED ARTIFICIAL HIP JOINT Current Visit: Yes Qualifiers: Laterality: left Qualified Code(s): Z96.642 - Presence of left artificial hip joint (2) HTN (hypertension) SNOMED Code(s): 01229663 Code(s): I10 - ESSENTIAL (PRIMARY) HYPERTENSION Current Visit: Yes (3) CAMI (obstructive sleep apnea) SNOMED Code(s): 55576258 Code(s): G47.33 - OBSTRUCTIVE SLEEP APNEA (ADULT) (PEDIATRIC) Current Visit : Yes (4) DM type 2 (diabetes mellitus, type 2) SNOMED Code(s): 14400508 Code(s): E11.9 - TYPE 2 DIABETES MELLITUS WITHOUT COMPLICATIONS Current Visit: Yes (5) Obesity SNOMED Code(s): 018916973, 055595440 Code(s): E66.9 - OBESITY, UNSPECIFIED Current Visit: Yes (6) Non-ischemic cardiomyopathy SNOMED Code(s): 83389618 Code(s): I42.8 - OTHER CARDIOMYOPATHIES Current Visit: Yes Problem List Initiated/Reviewed/Updated: Yes My Orders Last 24 Hours: My Active Orders 03/30/19 14:59 BASIC METABOLIC PANEL,BMP [CHEM] Routine CBC WITH AUTO DIFF [HEME] Routine MG [MAGNESIUM] [CHEM] Routine 03/30/19 15:26 Telemetry Monitoring [Cardiac Monitoring] [RC] . DIRECTED Plan: This 58 year old male admitted with L anterior hip arthroplasty. Hospitalist service consulted for medical management. 1. S/P L hip arthroplasty: Orders per Orthopedics 2. HTN: Stable, continue Metoprolol BID 3. DM Type 2: Hold Metformin, Novolog SSI with meals. Monitor BMP and BS 4. Nonischemic cardiomyopathy: Monitor on telemetry. No chest pain currently VTE prophylaxis: Recommended when Orthopedics deems appropriate. Dispo: Mentioned about going to [place], will consult social work case manager in the morning. <Montrell Tripathi - Last Filed: 03/31/19 16:03> H&P History of Present Illness - General Admit Problem/Dx: Admission Diagnosis/Problem Admission Diagnosis/Problem Hip replacement planned I have seen and examined the patient independently of Rebecca Kerr CNP. I have reviewed and agree with the plan of care as outlined for this patient by her. I have discussed the case with her. Please see orders. Exam - Vital Signs Vital Signs: Last Vital Signs Temp 37.6 C 03/31/19 11:40 Pulse 68 03/31/19 11:40 Resp 18 03/31/19 11:40 BP 122/57 L 03/31/19 11:40 Pulse Ox 93 L 03/31/19 11:40 - Patient Data Lab Results Last 24 hrs: Laboratory Results - last 24 hr 03/30/19 03/30/19 03/30/19 Range/Units 17:59 20:30 20:30 WBC 12.82 H (4.0-11.0) K/uL RBC 4.50 (4.50-5.90) M/uL Hgb 13.7 (13.0-17.0) g/dL Hct 41.5 (38.0-50.0) % MCV 92.2 (80.0-98.0) fL MCH 30.4 (27.0-32.0) pg MCHC 33.0 (31.0-37.0) g/dL RDW Std Deviation 44.7 (28.0-62.0) fl RDW Coeff of Francine 13 (11.0-15.0) % Plt Count 169 (150-400) K/uL MPV 10.40 (7.40-12.00) fL Neut % (Auto) 77.8 (48.0-80.0) % Lymph % (Auto) 12.4 L (16.0-40.0) % Lander % (Auto) 9.0 (0.0-15.0) % Eos % (Auto) 0.7 (0.0-7.0) % Baso % (Auto) 0.1 (0.0-1.5) % Neut # (Auto) 10.0 H (1.4-5.7) K/uL Lymph # (Auto) 1.6 (0.6-2.4) K/uL Lander # (Auto) 1.2 H (0.0-0.8) K/uL Eos # (Auto) 0.1 (0.0-0.7) K/uL Baso # (Auto) 0.0 (0.0-0.1) K/uL Nucleated RBC % 0.0 /100WBC Nucleated RBCs # 0 K/uL Sodium 143 (136-148) mmol/L Potassium 4.0 (3.5-5.1) mmol/L Chloride 106 (98-107) mmol/L Carbon Dioxide 27.9 (21.0-32.0) mmol/L BUN 14 (7.0-18.0) mg/dL Creatinine 0.9 (0.8-1.3) mg/dL Est Cr Clr Drug Dosing 99.40 mL/min Estimated GFR (MDRD) > 60.0 ml/min Glucose 149 H (74-106) mg/dL POC Glucose 107 (60-110) mg/dL Calcium 8.7 (8.5-10.1) mg/dL Magnesium 1.9 (1.8-2.4) mg/dL 03/31/19 03/31/19 Range/Units 06:34 06:34 WBC (4.0-11.0) K/uL RBC (4.50-5.90) M/uL Hgb 12.8 L (13.0-17.0) g/dL Hct 39.3 (38.0-50.0) % MCV (80.0-98.0) fL MCH (27.0-32.0) pg MCHC (31.0-37.0) g/dL RDW Std Deviation (28.0-62.0) fl RDW Coeff of Francine (11.0-15.0) % Plt Count (150-400) K/uL MPV (7.40-12.00) fL Neut % (Auto) (48.0-80.0) % Lymph % (Auto) (16.0-40.0) % Lander % (Auto) (0.0-15.0) % Eos % (Auto) (0.0-7.0) % Baso % (Auto) (0.0-1.5) % Neut # (Auto) (1.4-5.7) K/uL Lymph # (Auto) (0.6-2.4) K/uL Lander # (Auto) (0.0-0.8) K/uL Eos # (Auto) (0.0-0.7) K/uL Baso # (Auto) (0.0-0.1) K/uL Nucleated RBC % /100WBC Nucleated RBCs # K/uL Sodium 141 (136-148) mmol/L Potassium 4.6 (3.5-5.1) mmol/L Chloride 104 (98-107) mmol/L Carbon Dioxide 31.4 (21.0-32.0) mmol/L BUN 13 (7.0-18.0) mg/dL Creatinine 1.0 (0.8-1.3) mg/dL Est Cr Clr Drug Dosing 89.46 mL/min Estimated GFR (MDRD) > 60.0 ml/min Glucose 134 H (74-106) mg/dL POC Glucose (60-110) mg/dL Calcium 8.9 (8.5-10.1) mg/dL Magnesium 2.0 (1.8-2.4) mg/dL Result Diagrams: 03/31/19 06:34 03/31/19 06:34 Consult PN Assessment/Plan Procedures: Procedures AIRWAY INHALATION TREATMENT (07/23/18) ASSAY OF LACTIC ACID (12/03/18) ASSAY OF LIPASE (12/03/18) ASSAY OF NATRIURETIC PEPTIDE (07/23/18) ASSAY OF TROPONIN QUANT (12/03/18) CHEST X-RAY 2VW FRONTAL&LATL (10/03/16) COMPLETE CBC W/AUTO DIFF WBC (03/09/19) COMPREHEN METABOLIC PANEL (12/10/18) CT ABD & PELV W/CONTRAST (10/03/18) CULTURE SCREEN ONLY (07/23/18) ELECTROCARDIOGRAM TRACING (03/09/19) EMERGENCY DEPT VISIT (12/03/18) EMERGENCY DEPT VISIT (08/28/18) EMERGENCY DEPT VISIT (07/22/17) EMERGENCY DEPT VISIT (10/20/16) EMERGENCY DEPT VISIT (10/03/16) EXTREMITY STUDY (02/22/18) GLYCOSYLATED HEMOGLOBIN TEST (03/09/19) HYDRATE IV INFUSION ADD-ON (12/03/18) HYDRATION IV INFUSION INIT (10/03/16) INFLUENZA ASSAY W/OPTIC (07/23/18) LIPID PANEL (12/10/18) METABOLIC PANEL TOTAL CA (03/09/19) PROTHROMBIN TIME (03/09/19) ROUTINE VENIPUNCTURE (03/09/19) STREP A ASSAY W/OPTIC (07/23/18) THER/PROPH/DIAG INJ IV PUSH (12/03/18) THER/PROPH/DIAG INJ SC/IM (08/28/18) TX/PRO/DX INJ NEW DRUG ADDON (12/03/18) TX/PRO/DX INJ SAME DRUG INTERNAL COMBUSTION ENGINE ASSEMBLER (10/03/18) URINALYSIS AUTO W/O SCOPE (03/09/19) X-RAY EXAM CHEST 1 VIEW (12/03/18) X-RAY EXAM CHEST 2 VIEWS (03/09/19) X-RAY EXAM HIPS BI 2 VIEWS (12/31/18) X-RAY EXAM KNEE 4 OR MORE (01/07/19) X-RAY EXAM OF ANKLE (02/22/18) X-RAY EXAM OF KNEE 3 (10/20/16) X-RAY EXAM OF LOWER LEG (02/22/18)
[2019-03-30] MEDS: Acetaminophen/HYDROcodone 325-7.5 MG Tab PO PRN (17:18)
--- NOTE | 2019-03-30 17:20 | OR ---
SURGEON: Tony Vásquez MD DATE OF PROCEDURE: 03/30/2019 PRIMARY SURGEON: Tony Vásquez MD. ASSISTANTS: Rubi Wong PA-C, and KATJA Michaels. PREOPERATIVE DIAGNOSIS: Left hip osteoarthritis. POSTOPERATIVE DIAGNOSIS: Left hip osteoarthritis. OPERATION PERFORMED: Left anterior total hip arthroplasty. ANESTHESIA: Spinal and sedation. COMPLICATIONS: None. ESTIMATED BLOOD LOSS: 400 mL. SPECIMENS: Femoral head. IMPLANTS: Denia Continuum Trabecular Metal shell with cluster holes, 58 mm outer diameter; Vivacit-E neutral liner, 36 mm inner diameter; BIOLOX delta ceramic femoral head, 36 mm diameter, -3.5 neck length with an Avenir Vidales lateral uncemented stem, size 3. INDICATIONS: The patient is a 58-year-old male with severe arthritis. He has failed conservative management, modification therapy and injections. Has chronic pain on a daily basis hindering activities, wished to undergo replacement. He understands risks, benefits, alternatives, and complications to procedure including, but not limited to, infection, neurovascular injury, continued pain, nonresolution of symptoms, DVT, PE, stroke, LA, , leg-length discrepancy, fracture, dislocation, and he wished to proceed. PA and nurse practitioner were required in the case for retraction, positioning, closing, manipulating the leg, and reducing. DESCRIPTION OF PROCEDURE: The patient was seen in preoperative area, operative extremity was marked. The patient was transferred to the operating room. Spinal was given. He was then placed supine on the Ma[place] table and sedation was given. Legs were placed in the leg bars with narrow perineal post. Left hip was prepped and draped in usual sterile fashion using alcohol followed by ChloraPrep. A formal time-out was taken identifying the correct patient, procedure, and extremity. There was Ioban covering. He received preoperative antibiotics of clindamycin and 2 g of TXA. An 8 cm incision starting lateral to the ASIS going obliquely down the femur was made. Dissection was carried down through subcutaneous tissues. Hemostasis obtained. The fascia overlying the TFL lateral to the lateral femoral cutaneous nerve was opened and the interval between the TFL and sartorius and deep between the abductors and rectus was opened. The anterior vessels were coagulated. A deep Tez retractor was placed. Indirect head of the rectus was released and the capsule was held and tagged with two sutures. Deep retractors were placed. The neck was cut from saddle region to 2 cm above the lesser trochanter based on preoperative templating and the head was removed. There was noted be severe arthritis. The inferior capsule was released and portions of the iliopsoas tendon due to severe tightness. The labral remnants were removed as well as the pulvinar. The head measured approximately 53 mm and was sequentially reamed from 53 up to 57 mm going slightly superior and medial to get good fit and fill. After irrigating, under fluoroscopic control, after planing the bed to make sure it was level, under fluoroscopic control, a Continuum Trabecular Metal shell with cluster holes was placed in the screw holes straight superior and 45 degrees of abduction and 10 degrees of anteversion. It had excellent press fit. There was no uncovering anteriorly. No screw was needed and a neutral liner was impacted. Femoral lift was placed and the leg was externally rotated, abducted, and extended. The medial capsule was released due to severe tightness. Superior capsule, obturator internus, and piriformis were released. Central canal finder was utilized. Hip was sequentially broached up to size 3 following the tuscarora version. We tried reducing the lateral offset to -3.5 neck. Printed overlay technique with the opposite hip showed equal leg lengths and offset. The hip was then dislocated and the trial components were removed and the final Avenir Vidales lateral stem, size 3, was impacted following the tuscarora version and the -3.5 head was then impacted. Hip was relocated. It was stable through range of motion with no Shuck. Two tag sutures were tied together. Printed overlay technique showed equal leg lengths and offset. The fascia was closed with #1 Vicryl, subcutaneous tissues with 2-0 Stratafix, and skin with running 4-0 Monocryl. Dermabond tape and Aquacel dressing were placed. The patient was transferred to recovery room in stable condition. Sponge and needle counts were correct at the end of the case. He will take aspirin for DVT prophylaxis. THAI SMITH /[id number]
[2019-03-30] MEDS ORDERED: Ketorolac 15 MG/ML SDV IVPUSH PRN (17:54)
[2019-03-30] MEDS ORDERED: oxyCODONE 5 MG Tab PO PRN (17:54)
[2019-03-30] MEDS: HYDROmorphone 2 MG/ML Syringe IVPUSH PRN ×2 (18:04→22:01)
[2019-03-30 21:01] LABS: BLOOD UREA NITROGEN,BUN 14 mg/dL (7.0-18.0); CARBON DIOXIDE,CO2 27.9 mmol/L (21.0-32.0); CHLORIDE,CL 106 mmol/L (98-107); GLUCOSE RANDOM 149 mg/dL (74-106); SODIUM,NA 143 mmol/L (136-148)
[2019-03-30] MEDS: atorvaSTATin 40 MG Tab PO SCH (21:43)
[2019-03-30] MEDS: Metoprolol Succinate 50 MG Tab.ER PO SCH (21:46)
[2019-03-31] MEDS: Acetaminophen/HYDROcodone 325-7.5 MG Tab PO PRN ×5 (03:18→21:10)
[2019-03-31] MEDS: Morphine 4 MG/ML Syringe IVPUSH PRN (03:19)
--- NOTE | 2019-03-31 06:49 | PCM.POSTAN ---
POST ANESTHESIA ASSESSMENT - MENTAL STATUS Mental Status: Alert, Oriented - VITAL SIGNS Vital Signs: Last Vital Signs Temp 36.2 C 03/31/19 04:00 Pulse 62 03/31/19 04:00 Resp 19 03/31/19 04:00 BP 129/68 03/31/19 04:00 Pulse Ox 94 L 03/31/19 04:00 - RESPIRATORY Respiratory Status: Respiratory Rate WNL, Airway Patent, O2 Saturation Stable - CARDIOVASCULAR CV Status: Pulse Rate WNL, Blood Pressure Stable - GASTROINTESTINAL GI Status: No Symptoms - PAIN Pain Score: 0 - POST OP HYDRATION Hydration Status: Adequate & Stable - OBSERVATIONS Free Text/Narrative:: no anesthesia problems
--- NOTE | 2019-03-31 06:50 | PCM48HPAN ---
Post Anesthesia Note - EVALUATION WITHIN 48HRS OF ANESTHETIC Vital Signs in Normal Range: Yes Patient Participated in Evaluation: Yes Respiratory Function Stable: Yes Airway Patent: Yes Cardiovascular Function Stable: Yes Hydration Status Stable: Yes Pain Control Satisfactory: Yes Nausea and Vomiting Control Satisfactory: Yes Mental Status Recovered: Yes Vital Signs: Last Vital Signs Temp 36.2 C 03/31/19 04:00 Pulse 62 03/31/19 04:00 Resp 19 03/31/19 04:00 BP 129/68 03/31/19 04:00 Pulse Ox 94 L 03/31/19 04:00 - COMMENTS/OBSERVATIONS Free Text/Narrative:: no anesthesia problems
[2019-03-31] MEDS: Clindamycin Phosphate in D5W 900 MG in Premix Bag 1 BAG IV SCH ×2 (06:53)
--- NOTE | 2019-03-31 07:00 | PCM.SN ---
- Free Text/Narrative Note: Subjective: pain was very bad last night, better now and controlled with meds. Patient has ambulated multiple times to bathroom. no cp/sob. no other issues. O: afebrile vital signs stable left hip - minimal pain to ROM, leg lengths equal. dressing is clean/dry/ intact with no drainage or surrounding erythema. minimal swelling in thigh and none distally. A/P: POD #1 left HUONG - full weight bearing with walker. - ecotrin for DVT prophylaxis - d/c today or tomorrow pending PT and activity level
[2019-03-31 07:06] LABS: BLOOD UREA NITROGEN,BUN 13 mg/dL (7.0-18.0); CARBON DIOXIDE,CO2 31.4 mmol/L (21.0-32.0); CHLORIDE,CL 104 mmol/L (98-107); GLUCOSE RANDOM 134 mg/dL (74-106); POTASSIUM,K 4.6 mmol/L (3.5-5.1); SODIUM,NA 141 mmol/L (136-148)
[2019-03-31] MEDS: Famotidine 20 MG Tab PO SCH (08:34)
[2019-03-31] MEDS: Aspirin 325 MG Tab PO SCH ×2 (08:34→21:11)
[2019-03-31] MEDS: Metoprolol Succinate 50 MG Tab.ER PO SCH ×2 (08:36→21:11)
[2019-03-31] MEDS: Polyethylene Glycol 3350 Powder 17 GM Packet PO SCH (08:45)
--- NOTE | 2019-03-31 10:18 | PCM.CONSN ---
<Rebecca Kerr M - Last Filed: 03/31/19 10:13> - General Info Date of Service: 03/31/19 Admission Dx/Problem (Free Text): Admission Diagnosis/Problem Admission Diagnosis/Problem Hip replacement planned Subjective Update: Sitting up in chair. Denies chest pain and SOB. No concerns this morning, Irritated with having to sit in the chair. Reinforced this needs to happen, along with ambulation after having hip surgery. Functional Status: Reports: Pain Controlled, Tolerating Diet - Review of Systems General: Reports: No Symptoms. Denies: Weakness, Fatigue HEENT: Reports: No Symptoms. Denies: Headaches, Sore Throat, Visual Changes Pulmonary: Reports: No Symptoms. Denies: Shortness of Breath Cardiovascular: Reports: No Symptoms. Denies: Chest Pain Gastrointestinal: Reports: No Symptoms. Denies: Abdominal Pain, Nausea, Vomiting Musculoskeletal: Reports: No Symptoms Skin: Reports: No Symptoms Neurological: Reports: No Symptoms Psychiatric: Reports: No Symptoms - Patient Data Vitals - Most Recent: Last Vital Signs Temp 98.1 F 03/31/19 07:25 Pulse 73 03/31/19 08:36 Resp 16 03/31/19 07:25 BP 106/62 03/31/19 08:36 Pulse Ox 92 L 03/31/19 07:25 Weight - Most Recent: 144.696 kg I&O - Last 24 Hours: Intake & Output 03/30/19 03/31/19 03/31/19 22:59 06:59 14:59 Intake Total 1750 1140 Output Total 850 Balance 1750 290 Lab Results Last 24 Hours: Laboratory Results - last 24 hr 03/30/19 03/30/19 03/30/19 Range/Units 12:09 17:59 20:30 WBC 12.82 H (4.0-11.0) K/uL RBC 4.50 (4.50-5.90) M/uL Hgb 13.7 (13.0-17.0) g/dL Hct 41.5 (38.0-50.0) % MCV 92.2 (80.0-98.0) fL MCH 30.4 (27.0-32.0) pg MCHC 33.0 (31.0-37.0) g/dL RDW Std Deviation 44.7 (28.0-62.0) fl RDW Coeff of Francine 13 (11.0-15.0) % Plt Count 169 (150-400) K/uL MPV 10.40 (7.40-12.00) fL Neut % (Auto) 77.8 (48.0-80.0) % Lymph % (Auto) 12.4 L (16.0-40.0) % [place] % (Auto) 9.0 (0.0-15.0) % Eos % (Auto) 0.7 (0.0-7.0) % Baso % (Auto) 0.1 (0.0-1.5) % Neut # (Auto) 10.0 H (1.4-5.7) K/uL Lymph # (Auto) 1.6 (0.6-2.4) K/uL [place] # (Auto) 1.2 H (0.0-0.8) K/uL Eos # (Auto) 0.1 (0.0-0.7) K/uL Baso # (Auto) 0.0 (0.0-0.1) K/uL Nucleated RBC % 0.0 /100WBC Nucleated RBCs # 0 K/uL Sodium (136-148) mmol/L Potassium (3.5-5.1) mmol/L Chloride (98-107) mmol/L Carbon Dioxide (21.0-32.0) mmol/L BUN (7.0-18.0) mg/dL Creatinine (0.8-1.3) mg/dL Est Cr Clr Drug Dosing mL/min Estimated GFR (MDRD) ml/min Glucose (74-106) mg/dL POC Glucose 107 107 (60-110) mg/dL Calcium (8.5-10.1) mg/dL Magnesium (1.8-2.4) mg/dL 03/30/19 03/31/19 03/31/19 Range/Units 20:30 06:34 06:34 WBC (4.0-11.0) K/uL RBC (4.50-5.90) M/uL Hgb 12.8 L (13.0-17.0) g/dL Hct 39.3 (38.0-50.0) % MCV (80.0-98.0) fL MCH (27.0-32.0) pg MCHC (31.0-37.0) g/dL RDW Std Deviation (28.0-62.0) fl RDW Coeff of Francine (11.0-15.0) % Plt Count (150-400) K/uL MPV (7.40-12.00) fL Neut % (Auto) (48.0-80.0) % Lymph % (Auto) (16.0-40.0) % [place] % (Auto) (0.0-15.0) % Eos % (Auto) (0.0-7.0) % Baso % (Auto) (0.0-1.5) % Neut # (Auto) (1.4-5.7) K/uL Lymph # (Auto) (0.6-2.4) K/uL [place] # (Auto) (0.0-0.8) K/uL Eos # (Auto) (0.0-0.7) K/uL Baso # (Auto) (0.0-0.1) K/uL Nucleated RBC % /100WBC Nucleated RBCs # K/uL Sodium 143 141 (136-148) mmol/L Potassium 4.0 4.6 (3.5-5.1) mmol/L Chloride 106 104 (98-107) mmol/L Carbon Dioxide 27.9 31.4 (21.0-32.0) mmol/L BUN 14 13 (7.0-18.0) mg/dL Creatinine 0.9 1.0 (0.8-1.3) mg/dL Est Cr Clr Drug Dosing 99.40 89.46 mL/min Estimated GFR (MDRD) > 60.0 > 60.0 ml/min Glucose 149 H 134 H (74-106) mg/dL POC Glucose (60-110) mg/dL Calcium 8.7 8.9 (8.5-10.1) mg/dL Magnesium 1.9 2.0 (1.8-2.4) mg/dL Med Orders - Current: Current Medications Hydrocodone Bitart/Acetaminophen ([place] 325-7.5 Mg) 1 - 2 tab PO Q4H PRN PRN Reason: Pain Last Admin: 03/31/19 08:37 Dose: 2 tab Al Hydroxide/Mg Hydroxide (Mag-Al Plus) 30 ml PO Q4H PRN PRN Reason: Indigestion Aspirin (Aspirin) 325 mg PO BID [facility] Last Admin: 03/31/19 08:34 Dose: 325 mg Atorvastatin Calcium (Lipitor) 40 mg PO BEDTIME [facility] Last Admin: 03/30/19 21:43 Dose: 40 mg Bisacodyl (Dulcolax) 10 mg RECTAL DAILY PRN PRN Reason: Constipation Diphenhydramine HCl (Benadryl) 25 - 50 mg PO Q6H PRN PRN Reason: Itching Docusate Sodium (Colace) 100 mg PO BID PRN PRN Reason: Constipation Famotidine (Pepcid) 40 mg PO DAILY [facility] Last Admin: 03/31/19 08:34 Dose: 40 mg Hydromorphone HCl (Dilaudid) 1 - 3 mg IVPUSH Q2H PRN PRN Reason: Pain (severe 7-10) Last Admin: 03/30/19 22:01 Dose: 1 mg Clindamycin Phosphate 900 mg/ (Premix) 50 mls @ 100 mls/hr IV ONETIME [facility] Last Admin: 03/30/19 22:00 Dose: 100 mls/hr Ketorolac Tromethamine (Toradol) 30 mg IVPUSH Q8H PRN PRN Reason: Pain (moderate 4-6) Stop: 04/04/19 17:54 Metoprolol Succinate (Toprol Xl) 25 mg PO BID [facility] Last Admin: 03/31/19 08:36 Dose: 25 mg Morphine Sulfate (Morphine) 1 - 3 mg IVPUSH Q3H PRN PRN Reason: Pain Last Admin: 03/31/19 03:19 Dose: 2 mg Ondansetron HCl (Zofran) 4 mg IVPUSH Q6H PRN PRN Reason: Nausea/Vomiting Last Admin: 03/30/19 20:19 Dose: 4 mg Oxycodone HCl (Oxycodone) 20 mg PO BID PRN PRN Reason: Pain (moderate 4-6) Polyethylene Glycol (Miralax) 17 gm PO DAILY [facility] Last Admin: 03/31/19 08:45 Dose: Not Given Sodium Chloride (Saline Flush) 10 ml FLUSH ASDIRECTED PRN PRN Reason: Keep Vein Open Sodium Chloride (Saline Flush) 2.5 ml FLUSH ASDIRECTED PRN PRN Reason: Keep Vein Open Discontinued Medications Fentanyl (Sublimaze) Confirm Administered Dose 100 mcg .ROUTE .STK-MED ONE Stop: 03/30/19 12:44 Clindamycin Phosphate 900 mg/ (Premix) 50 mls @ 100 mls/hr IV Q8H JEFFERY Stop: 03/31/19 05:59 Last Admin: 03/31/19 06:53 Dose: Not Given Lidocaine (Xylocaine-Mpf 2%) Confirm Administered Dose 5 ml .ROUTE .STK-MED ONE Stop: 03/30/19 12:48 Midazolam HCl (Versed 1 Mg/Ml) Confirm Administered Dose 2 mg .ROUTE .STK-MED ONE Stop: 03/30/19 12:44 Phenylephrine HCl (Phenylephrine In Ns 100 Mcg/Ml) Confirm Administered Dose 1 mg .ROUTE .STK-MED ONE Stop: 03/30/19 14:25 Propofol (Diprivan 20 Ml) Confirm Administered Dose 400 mg .ROUTE .STK-MED ONE Stop: 03/30/19 12:44 Propofol (Diprivan 20 Ml) Confirm Administered Dose 200 mg .ROUTE .STK-MED ONE Stop: 03/30/19 14:20 Tranexamic Acid (Cyklokapron) 2,000 mg IV ONETIME ONE Stop: 03/30/19 12:01 Last Admin: 03/30/19 16:37 Dose: Not Given Tranexamic Acid (Cyklokapron) Confirm Administered Dose 1,000 mg .ROUTE .STK- MED ONE Stop: 03/30/19 08:23 Tranexamic Acid (Cyklokapron) Confirm Administered Dose 1,000 mg .ROUTE .STK- MED ONE Stop: 03/30/19 08:25 - Exam General: Alert, Oriented, Cooperative, No Acute Distress Lungs: Clear to Auscultation, Normal Respiratory Effort Cardiovascular: Regular Rate, Regular Rhythm GI/Abdominal Exam: Normal Bowel Sounds, Soft, Non-Tender Back Exam: Normal Inspection, Full Range of Motion Extremities: Normal Inspection, Normal Range of Motion, Non-Tender, No Pedal Edema Wound/Incisions: Dressing Dry and Intact (L hip) Neurological: No New Focal Deficit Psy/Mental Status: Alert, Normal Affect, Normal Mood Consult PN Assessment/Plan POD#: 1 Procedures: Procedures AIRWAY INHALATION TREATMENT (07/23/18) ASSAY OF LACTIC ACID (12/03/18) ASSAY OF LIPASE (12/03/18) ASSAY OF NATRIURETIC PEPTIDE (07/23/18) ASSAY OF TROPONIN QUANT (12/03/18) CHEST X-RAY 2VW FRONTAL&LATL (10/03/16) COMPLETE CBC W/AUTO DIFF WBC (03/09/19) COMPREHEN METABOLIC PANEL (12/10/18) CT ABD & PELV W/CONTRAST (10/03/18) CULTURE SCREEN ONLY (07/23/18) ELECTROCARDIOGRAM TRACING (03/09/19) EMERGENCY DEPT VISIT (12/03/18) EMERGENCY DEPT VISIT (08/28/18) EMERGENCY DEPT VISIT (07/22/17) EMERGENCY DEPT VISIT (10/20/16) EMERGENCY DEPT VISIT (10/03/16) EXTREMITY STUDY (02/22/18) GLYCOSYLATED HEMOGLOBIN TEST (03/09/19) HYDRATE IV INFUSION ADD-ON (12/03/18) HYDRATION IV INFUSION INIT (10/03/16) INFLUENZA ASSAY W/OPTIC (07/23/18) LIPID PANEL (12/10/18) METABOLIC PANEL TOTAL CA (03/09/19) PROTHROMBIN TIME (03/09/19) ROUTINE VENIPUNCTURE (03/09/19) STREP A ASSAY W/OPTIC (07/23/18) THER/PROPH/DIAG INJ IV PUSH (12/03/18) THER/PROPH/DIAG INJ SC/IM (08/28/18) TX/PRO/DX INJ NEW DRUG ADDON (12/03/18) TX/PRO/DX INJ SAME DRUG 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 (1) S/P hip replacement SNOMED Code(s): 449106598, 037818109, 364799390, 582560953 Code(s): Z96.649 - PRESENCE OF UNSPECIFIED ARTIFICIAL HIP JOINT Current Visit: Yes Qualifiers: Laterality: left Qualified Code(s): Z96.642 - Presence of left artificial hip joint (2) HTN (hypertension) SNOMED Code(s): 31697120 Code(s): I10 - ESSENTIAL (PRIMARY) HYPERTENSION Current Visit: Yes (3) CAMI (obstructive sleep apnea) SNOMED Code(s): 64343682 Code(s): G47.33 - OBSTRUCTIVE SLEEP APNEA (ADULT) (PEDIATRIC) Current Visit : Yes (4) DM type 2 (diabetes mellitus, type 2) SNOMED Code(s): 63385877 Code(s): E11.9 - TYPE 2 DIABETES MELLITUS WITHOUT COMPLICATIONS Current Visit: Yes (5) Obesity SNOMED Code(s): 721951816, 950124552 Code(s): E66.9 - OBESITY, UNSPECIFIED Current Visit: Yes (6) Non-ischemic cardiomyopathy SNOMED Code(s): 81329648 Code(s): I42.8 - OTHER CARDIOMYOPATHIES Current Visit: Yes Problem List Initiated/Reviewed/Updated: Yes My Orders Last 24 Hours: My Active Orders 03/30/19 15:26 Telemetry Monitoring [Cardiac Monitoring] [RC] Q8H 03/30/19 21:00 Metoprolol Succinate [Toprol XL] 25 mg PO BID atorvaSTATin [Lipitor] 40 mg PO BEDTIME 04/01/19 05:11 BASIC METABOLIC PANEL,BMP [CHEM] AM MG [MAGNESIUM] [CHEM] AM Plan: This 58 year old male admitted with L anterior hip arthroplasty. Hospitalist service consulted for medical management. 1. S/P L hip arthroplasty: Orders per Orthopedics 2. HTN: Stable, continue Metoprolol BID 3. DM Type 2: Hold Metformin, Novolog SSI with meals. Monitor BMP and BS 4. Nonischemic cardiomyopathy: Monitor on telemetry. No chest pain currently. No edema noted and no signs of CHF. VTE prophylaxis: Recommended when Orthopedics deems appropriate. <Montrell Tripathi - Last Filed: 03/31/19 16:05> - General Info Admission Dx/Problem (Free Text): I have seen and examined the patient independently of Rebecca Kerr CNP. I have reviewed and agree with the plan of care as outlined for this patient by her. I have discussed the case with her. Please see orders. We'll continue to follow. - Patient Data Vitals - Most Recent: Last Vital Signs Temp 37.6 C 03/31/19 11:40 Pulse 68 03/31/19 11:40 Resp 18 03/31/19 11:40 BP 122/57 L 03/31/19 11:40 Pulse Ox 93 L 03/31/19 11:40 I&O - Last 24 Hours: Intake & Output 03/31/19 03/31/19 03/31/19 06:59 14:59 22:59 Intake Total 1140 Output Total 850 Balance 290 Lab Results Last 24 Hours: Laboratory Results - last 24 hr 03/30/19 03/30/19 03/30/19 Range/Units 17:59 20:30 20:30 WBC 12.82 H (4.0-11.0) K/uL RBC 4.50 (4.50-5.90) M/uL Hgb 13.7 (13.0-17.0) g/dL Hct 41.5 (38.0-50.0) % MCV 92.2 (80.0-98.0) fL MCH 30.4 (27.0-32.0) pg MCHC 33.0 (31.0-37.0) g/dL RDW Std Deviation 44.7 (28.0-62.0) fl RDW Coeff of Francine 13 (11.0-15.0) % Plt Count 169 (150-400) K/uL MPV 10.40 (7.40-12.00) fL Neut % (Auto) 77.8 (48.0-80.0) % Lymph % (Auto) 12.4 L (16.0-40.0) % [place] % (Auto) 9.0 (0.0-15.0) % Eos % (Auto) 0.7 (0.0-7.0) % Baso % (Auto) 0.1 (0.0-1.5) % Neut # (Auto) 10.0 H (1.4-5.7) K/uL Lymph # (Auto) 1.6 (0.6-2.4) K/uL [place] # (Auto) 1.2 H (0.0-0.8) K/uL Eos # (Auto) 0.1 (0.0-0.7) K/uL Baso # (Auto) 0.0 (0.0-0.1) K/uL Nucleated RBC % 0.0 /100WBC Nucleated RBCs # 0 K/uL Sodium 143 (136-148) mmol/L Potassium 4.0 (3.5-5.1) mmol/L Chloride 106 (98-107) mmol/L Carbon Dioxide 27.9 (21.0-32.0) mmol/L BUN 14 (7.0-18.0) mg/dL Creatinine 0.9 (0.8-1.3) mg/dL Est Cr Clr Drug Dosing 99.40 mL/min Estimated GFR (MDRD) > 60.0 ml/min Glucose 149 H (74-106) mg/dL POC Glucose 107 (60-110) mg/dL Calcium 8.7 (8.5-10.1) mg/dL Magnesium 1.9 (1.8-2.4) mg/dL 03/31/19 03/31/19 Range/Units 06:34 06:34 WBC (4.0-11.0) K/uL RBC (4.50-5.90) M/uL Hgb 12.8 L (13.0-17.0) g/dL Hct 39.3 (38.0-50.0) % MCV (80.0-98.0) fL MCH (27.0-32.0) pg MCHC (31.0-37.0) g/dL RDW Std Deviation (28.0-62.0) fl RDW Coeff of Francine (11.0-15.0) % Plt Count (150-400) K/uL MPV (7.40-12.00) fL Neut % (Auto) (48.0-80.0) % Lymph % (Auto) (16.0-40.0) % [place] % (Auto) (0.0-15.0) % Eos % (Auto) (0.0-7.0) % Baso % (Auto) (0.0-1.5) % Neut # (Auto) (1.4-5.7) K/uL Lymph # (Auto) (0.6-2.4) K/uL [place] # (Auto) (0.0-0.8) K/uL Eos # (Auto) (0.0-0.7) K/uL Baso # (Auto) (0.0-0.1) K/uL Nucleated RBC % /100WBC Nucleated RBCs # K/uL Sodium 141 (136-148) mmol/L Potassium 4.6 (3.5-5.1) mmol/L Chloride 104 (98-107) mmol/L Carbon Dioxide 31.4 (21.0-32.0) mmol/L BUN 13 (7.0-18.0) mg/dL Creatinine 1.0 (0.8-1.3) mg/dL Est Cr Clr Drug Dosing 89.46 mL/min Estimated GFR (MDRD) > 60.0 ml/min Glucose 134 H (74-106) mg/dL POC Glucose (60-110) mg/dL Calcium 8.9 (8.5-10.1) mg/dL Magnesium 2.0 (1.8-2.4) mg/dL Med Orders - Current: Current Medications Hydrocodone Bitart/Acetaminophen ([place] 325-7.5 Mg) 1 - 2 tab PO Q4H PRN PRN Reason: Pain Last Admin: 03/31/19 13:11 Dose: 2 tab Al Hydroxide/Mg Hydroxide (Mag-Al Plus) 30 ml PO Q4H PRN PRN Reason: Indigestion Aspirin (Aspirin) 325 mg PO BID [facility] Last Admin: 03/31/19 08:34 Dose: 325 mg Atorvastatin Calcium (Lipitor) 40 mg PO BEDTIME [facility] Last Admin: 03/30/19 21:43 Dose: 40 mg Bisacodyl (Dulcolax) 10 mg RECTAL DAILY PRN PRN Reason: Constipation Diphenhydramine HCl (Benadryl) 25 - 50 mg PO Q6H PRN PRN Reason: Itching Docusate Sodium (Colace) 100 mg PO BID PRN PRN Reason: Constipation Famotidine (Pepcid) 40 mg PO DAILY [facility] Last Admin: 03/31/19 08:34 Dose: 40 mg Hydromorphone HCl (Dilaudid) 1 - 3 mg IVPUSH Q2H PRN PRN Reason: Pain (severe 7-10) Last Admin: 03/30/19 22:01 Dose: 1 mg Clindamycin Phosphate 900 mg/ (Premix) 50 mls @ 100 mls/hr IV ONETIME [facility] Last Admin: 03/30/19 22:00 Dose: 100 mls/hr Ketorolac Tromethamine (Toradol) 30 mg IVPUSH Q8H PRN PRN Reason: Pain (moderate 4-6) Stop: 04/04/19 17:54 Metoprolol Succinate (Toprol Xl) 25 mg PO BID [facility] Last Admin: 03/31/19 08:36 Dose: 25 mg Morphine Sulfate (Morphine) 1 - 3 mg IVPUSH Q3H PRN PRN Reason: Pain Last Admin: 03/31/19 03:19 Dose: 2 mg Ondansetron HCl (Zofran) 4 mg IVPUSH Q6H PRN PRN Reason: Nausea/Vomiting Last Admin: 03/30/19 20:19 Dose: 4 mg Oxycodone HCl (Oxycodone) 20 mg PO BID PRN PRN Reason: Pain (moderate 4-6) Polyethylene Glycol (Miralax) 17 gm PO DAILY [facility] Last Admin: 03/31/19 08:45 Dose: Not Given Sodium Chloride (Saline Flush) 10 ml FLUSH ASDIRECTED PRN PRN Reason: Keep Vein Open Sodium Chloride (Saline Flush) 2.5 ml FLUSH ASDIRECTED PRN PRN Reason: Keep Vein Open Discontinued Medications Fentanyl (Sublimaze) Confirm Administered Dose 100 mcg .ROUTE .STK-MED ONE Stop: 03/30/19 12:44 Clindamycin Phosphate 900 mg/ (Premix) 50 mls @ 100 mls/hr IV Q8H [facility] Stop: 03/31/19 05:59 Last Admin: 03/31/19 06:53 Dose: Not Given Lidocaine (Xylocaine-Mpf 2%) Confirm Administered Dose 5 ml .ROUTE .STK-MED ONE Stop: 03/30/19 12:48 Midazolam HCl (Versed 1 Mg/Ml) Confirm Administered Dose 2 mg .ROUTE .STK-MED ONE Stop: 03/30/19 12:44 Phenylephrine HCl (Phenylephrine In Ns 100 Mcg/Ml) Confirm Administered Dose 1 mg .ROUTE .STK-MED ONE Stop: 03/30/19 14:25 Propofol (Diprivan 20 Ml) Confirm Administered Dose 400 mg .ROUTE .STK-MED ONE Stop: 03/30/19 12:44 Propofol (Diprivan 20 Ml) Confirm Administered Dose 200 mg .ROUTE .STK-MED ONE Stop: 03/30/19 14:20 Tranexamic Acid (Cyklokapron) 2,000 mg IV ONETIME ONE Stop: 03/30/19 12:01 Last Admin: 03/30/19 16:37 Dose: Not Given Tranexamic Acid (Cyklokapron) Confirm Administered Dose 1,000 mg .ROUTE .STK- MED ONE Stop: 03/30/19 08:23 Tranexamic Acid (Cyklokapron) Confirm Administered Dose 1,000 mg .ROUTE .STK- MED ONE Stop: 03/30/19 08:25 Consult PN Assessment/Plan Procedures: Procedures AIRWAY INHALATION TREATMENT (07/23/18) ASSAY OF LACTIC ACID (12/03/18) ASSAY OF LIPASE (12/03/18) ASSAY OF NATRIURETIC PEPTIDE (07/23/18) ASSAY OF TROPONIN QUANT (12/03/18) CHEST X-RAY 2VW FRONTAL&LATL (10/03/16) COMPLETE CBC W/AUTO DIFF WBC (03/09/19) COMPREHEN METABOLIC PANEL (12/10/18) CT ABD & PELV W/CONTRAST (10/03/18) CULTURE SCREEN ONLY (07/23/18) ELECTROCARDIOGRAM TRACING (03/09/19) EMERGENCY DEPT VISIT (12/03/18) EMERGENCY DEPT VISIT (08/28/18) EMERGENCY DEPT VISIT (07/22/17) EMERGENCY DEPT VISIT (10/20/16) EMERGENCY DEPT VISIT (10/03/16) EXTREMITY STUDY (02/22/18) GLYCOSYLATED HEMOGLOBIN TEST (03/09/19) HYDRATE IV INFUSION ADD-ON (12/03/18) HYDRATION IV INFUSION INIT (10/03/16) INFLUENZA ASSAY W/OPTIC (07/23/18) LIPID PANEL (12/10/18) METABOLIC PANEL TOTAL CA (03/09/19) PROTHROMBIN TIME (03/09/19) ROUTINE VENIPUNCTURE (03/09/19) STREP A ASSAY W/OPTIC (07/23/18) THER/PROPH/DIAG INJ IV PUSH (12/03/18) THER/PROPH/DIAG INJ SC/IM (08/28/18) TX/PRO/DX INJ NEW DRUG ADDON (12/03/18) TX/PRO/DX INJ SAME DRUG 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
[2019-03-31] MEDS: atorvaSTATin 40 MG Tab PO SCH (21:11)
[2019-04-01] MEDS: Acetaminophen/HYDROcodone 325-7.5 MG Tab PO PRN ×2 (02:04→08:21)
--- NOTE | 2019-04-01 07:09 | PCM.SN ---
- Free Text/Narrative Note: Subjective: pain in much better and controlled with meds. amublating well and going up stairs. Patient has ambulated multiple times to bathroom. no cp/sob. no other issues. O: afebrile vital signs stable left hip - minimal pain to ROM, leg lengths equal. dressing is clean/dry/ intact with no drainage or surrounding erythema. minimal swelling in thigh and none distally. A/P: POD #2 left HUONG - full weight bearing with walker. - ecotrin for DVT prophylaxis - d/c today, leave dressing on, f/u 2 weeks.
[2019-04-01 07:11] LABS: BLOOD UREA NITROGEN,BUN 15 mg/dL (7.0-18.0); CARBON DIOXIDE,CO2 31.3 mmol/L (21.0-32.0); CHLORIDE,CL 105 mmol/L (98-107); GLUCOSE RANDOM 132 mg/dL (74-106); POTASSIUM,K 4.6 mmol/L (3.5-5.1); SODIUM,NA 142 mmol/L (136-148)
[2019-04-01 07:53] VITALS: BP 131/68
[2019-04-01] MEDS: Aspirin 325 MG Tab PO SCH (08:21)
[2019-04-01] MEDS: Famotidine 20 MG Tab PO SCH (08:21)
[2019-04-01] MEDS: Metoprolol Succinate 50 MG Tab.ER PO SCH (08:23)
[2019-04-01] MEDS: Polyethylene Glycol 3350 Powder 17 GM Packet PO SCH (08:27)
--- NOTE | 2019-04-01 11:30 | PCM.DCSUM1 ---
Discharge Summary - Hospital Course Brief History: patient was admitted for left hip replacement Diagnosis: Stroke: No - Discharge Data Discharge Date: 04/01/19 Discharge Disposition: Home, Self-Care 01 Condition: Stable - Patient Summary/Data Operative Procedure(s) Performed: left anterior total hip arthroplasty Consults: Consultations 03/30/19 13:15 Consult to Physician [CONS] Routine PT Evaluation and Treatment [CONS] Routine Hospital Course: patient was admitted and underwent uneventful hip replacement.Postoperatively he was admitted to the floor were his pain was controlled and his diet was advanced he participatedIn therapy.He did well postoperatively and essentially discharged home on postoperative day #2. Hemoglobin remained stable. - Patient Instructions Diet: Usual Diet as Tolerated Activity: Apply Ice, Full Weight Bearing, No Strenuous Activities Driving: Do Not Drive Showering/Bathing: May Shower Wound/Incision Care: Do NOT Change Dressing Notify Provider of: Fever, Swelling and Redness, Drainage - Discharge Plan *PRESCRIPTION DRUG MONITORING PROGRAM REVIEWED*: No *COPY OF PRESCRIPTION DRUG MONITORING REPORT IN PATIENT VONNIE: No Home Medications: Home Meds Aspirin 81 mg PO DAILY 08/28/18 [History] Metoprolol Succinate 25 mg PO BID 12/03/18 [History] atorvaSTATin Calcium [Atorvastatin Calcium] 40 mg PO BEDTIME 03/24/19 [History] metFORMIN HCl [Metformin HCl ER] 500 mg PO QAM 03/24/19 [History] Patient Handouts: Acetaminophen; Hydrocodone tablets or capsules, Total Hip Replacement, Care After, [id number], Docusate capsules, Aspirin capsules or tablets extended release Referrals: Rubi Wong PA [Physician [employer]] - 04/13/19 1:30 pm - Discharge Summary/Plan Comment DC Time >30 min.: No - Patient Data Vitals - Most Recent: Last Vital Signs Temp 36.2 C 04/01/19 07:52 Pulse 78 04/01/19 08:23 Resp 18 04/01/19 07:52 BP 131/68 04/01/19 08:23 Pulse Ox 96 04/01/19 07:52 Weight - Most Recent: 144.696 kg I&O - Last 24 hours: Intake & Output 03/31/19 04/01/19 04/01/19 22:59 06:59 14:59 Intake Total 1670 1060 Output Total 1100 505 Balance 570 555 Lab Results - Last 24 hrs: Laboratory Results - last 24 hr 04/01/19 04/01/19 Range/Units 06:42 06:42 Hgb 12.6 L (13.0-17.0) g/dL Hct 38.8 (38.0-50.0) % Sodium 142 (136-148) mmol/L Potassium 4.6 (3.5-5.1) mmol/L Chloride 105 (98-107) mmol/L Carbon Dioxide 31.3 (21.0-32.0) mmol/L BUN 15 (7.0-18.0) mg/dL Creatinine 1.1 (0.8-1.3) mg/dL Est Cr Clr Drug Dosing 81.32 mL/min Estimated GFR (MDRD) > 60.0 ml/min Glucose 132 H (74-106) mg/dL Calcium 8.6 (8.5-10.1) mg/dL Magnesium 1.9 (1.8-2.4) mg/dL Med Orders - Current: Current Medications Discontinued Medications Hydrocodone Bitart/Acetaminophen ([place] 325-7.5 Mg) 1 - 2 tab PO Q4H PRN PRN Reason: Pain Last Admin: 04/01/19 08:21 Dose: 2 tab Al Hydroxide/Mg Hydroxide (Mag-Al Plus) 30 ml PO Q4H PRN PRN Reason: Indigestion Aspirin (Aspirin) 325 mg PO BID [facility] Last Admin: 04/01/19 08:21 Dose: 325 mg Atorvastatin Calcium (Lipitor) 40 mg PO BEDTIME [facility] Last Admin: 03/31/19 21:11 Dose: 40 mg Bisacodyl (Dulcolax) 10 mg RECTAL DAILY PRN PRN Reason: Constipation Diphenhydramine HCl (Benadryl) 25 - 50 mg PO Q6H PRN PRN Reason: Itching Docusate Sodium (Colace) 100 mg PO BID PRN PRN Reason: Constipation Famotidine (Pepcid) 40 mg PO DAILY [facility] Last Admin: 04/01/19 08:21 Dose: 40 mg Fentanyl (Sublimaze) Confirm Administered Dose 100 mcg .ROUTE .STK-MED ONE Stop: 03/30/19 12:44 Hydromorphone HCl (Dilaudid) 1 - 3 mg IVPUSH Q2H PRN PRN Reason: Pain (severe 7-10) Last Admin: 03/30/19 22:01 Dose: 1 mg Clindamycin Phosphate 900 mg/ (Premix) 50 mls @ 100 mls/hr IV ONETIME [facility] Last Admin: 03/30/19 22:00 Dose: 100 mls/hr Clindamycin Phosphate 900 mg/ (Premix) 50 mls @ 100 mls/hr IV Q8H [facility] Stop: 03/31/19 05:59 Last Admin: 03/31/19 06:53 Dose: Not Given Ketorolac Tromethamine (Toradol) 30 mg IVPUSH Q8H PRN PRN Reason: Pain (moderate 4-6) Stop: 04/04/19 17:54 Lidocaine (Xylocaine-Mpf 2%) Confirm Administered Dose 5 ml .ROUTE .STK-MED ONE Stop: 03/30/19 12:48 Metoprolol Succinate (Toprol Xl) 25 mg PO BID [facility] Last Admin: 04/01/19 08:23 Dose: 25 mg Midazolam HCl (Versed 1 Mg/Ml) Confirm Administered Dose 2 mg .ROUTE .STK-MED ONE Stop: 03/30/19 12:44 Morphine Sulfate (Morphine) 1 - 3 mg IVPUSH Q3H PRN PRN Reason: Pain Last Admin: 03/31/19 03:19 Dose: 2 mg Ondansetron HCl (Zofran) 4 mg IVPUSH Q6H PRN PRN Reason: Nausea/Vomiting Last Admin: 03/30/19 20:19 Dose: 4 mg Oxycodone HCl (Oxycodone) 20 mg PO BID PRN PRN Reason: Pain (moderate 4-6) Phenylephrine HCl (Phenylephrine In Ns 100 Mcg/Ml) Confirm Administered Dose 1 mg .ROUTE .STK-MED ONE Stop: 03/30/19 14:25 Polyethylene Glycol (Miralax) 17 gm PO DAILY [facility] Last Admin: 04/01/19 08:27 Dose: Not Given Propofol (Diprivan 20 Ml) Confirm Administered Dose 400 mg .ROUTE .STK-MED ONE Stop: 03/30/19 12:44 Propofol (Diprivan 20 Ml) Confirm Administered Dose 200 mg .ROUTE .STK-MED ONE Stop: 03/30/19 14:20 Sodium Chloride (Saline Flush) 10 ml FLUSH ASDIRECTED PRN PRN Reason: Keep Vein Open Sodium Chloride (Saline Flush) 2.5 ml FLUSH ASDIRECTED PRN PRN Reason: Keep Vein Open Tranexamic Acid (Cyklokapron) 2,000 mg IV ONETIME ONE Stop: 03/30/19 12:01 Last Admin: 03/30/19 16:37 Dose: Not Given Tranexamic Acid (Cyklokapron) Confirm Administered Dose 1,000 mg .ROUTE .STK- MED ONE Stop: 03/30/19 08:23 Tranexamic Acid (Cyklokapron) Confirm Administered Dose 1,000 mg .ROUTE .STK- MED ONE Stop: 03/30/19 08:25
== END 2019-04-01 11:10 | disposition home or self-care (01) | DRG 470 ==
LOC: MW.MS 11:35
PROVIDERS: ADMIT Orthopaedic Surgery; ATTEND Orthopaedic Surgery
PROC: 0SRB03A Replacement of Left Hip Joint with Ceramic Synthetic Substitute, Uncemented, Open Approach (ICD-10-PCS; principal; 2019-03-30)
DX: M16.12 Unilateral primary osteoarthritis, left hip (principal); I42.8 Other cardiomyopathies; K21.9 Gastro-esophageal reflux disease without esophagitis; E78.00 Pure hypercholesterolemia, unspecified; G43.909 Migraine, unspecified, not intractable, without status migrainosus; E11.9 Type 2 diabetes mellitus without complications; M17.12 Unilateral primary osteoarthritis, left knee; M16.11 Unilateral primary osteoarthritis, right hip; M10.9 Gout, unspecified; E66.9 Obesity, unspecified; I50.9 Heart failure, unspecified; G47.33 Obstructive sleep apnea (adult) (pediatric); I11.0 Hypertensive heart disease with heart failure; Z88.1 Allergy status to other antibiotic agents; Z79.84 Long term (current) use of oral hypoglycemic drugs; Z68.41 Body mass index [BMI] 40.0-44.9, adult; Z79.82 Long term (current) use of aspirin; Z87.891 Personal history of nicotine dependence
CPT/HCPCS: 36415; 76000; 80048; 82962; 83735; 85014; 85018; 85025; 88305; 88311; 97116-GP; 97161-GP; 97530-GP; A9270-GY; C1776; J1170; J2001; J2250; J2270; J2370; J2405; J2704; J3010; J3490

== ENCOUNTER 2019-04-02 17:10 | Emergency (ER) | payer MEDICAID, OTHER ==
--- NOTE | 2019-04-02 17:32 | EDM.PDOC ---
ED HPI GENERAL MEDICAL PROBLEM - General Chief Complaint: Lower Extremity Injury/Pain Stated Complaint: LEG COMPLAINT Time Seen by Provider: 04/02/19 17:24 Source of Information: Reports: Patient History Limitations: Reports: No Limitations - History of Present Illness INITIAL COMMENTS - FREE TEXT/NARRATIVE: History of present illness: []Patient had a left hip replacement [address] Vásquez and notes redness and heat around the incision well as a popping sound whenever he walks. He called Dr. Vásquez who stated he should come to the ER for evaluation. Review of systems: As per history of present illness and below otherwise all systems reviewed and negative. Past medical history: As per history of present illness and as reviewed below otherwise noncontributory. Surgical history: As per history of present illness and as reviewed below otherwise noncontributory. Social history: No reported history of drug or alcohol abuse. Family history: As per history of present illness and as reviewed below otherwise noncontributory. Physical exam: General: Well developed, well nourished in NAD HEENT: Atraumatic, normocephalic, pupils reactive, negative for conjunctival pallor or scleral icterus, mucous membranes moist, throat clear, neck supple, nontender, trachea midline. Lungs: Clear to auscultation, breath sounds equal bilaterally, chest nontender. Heart: S1S2, regular, negative for clicks, rubs, or JVD. Abdomen: NABS, Soft, nondistended, nontender. Negative for masses or hepatosplenomegaly. Negative for costovertebral tenderness. Pelvis: Stable nontender. Genitourinary: Deferred. Rectal: Deferred. Extremities: Left thigh with surgical dressing intact there is no leakage around it. Hematoma with ecchymosis around the wound, negative for cords or calf pain. Neurovascular unremarkable. Neuro: Awake, alert, oriented. Cranial nerves II through XII unremarkable. Cerebellum unremarkable. Motor and sensory unremarkable throughout. Exam nonfocal. Skin:warm and dry Diagnostics: CBC, hip x-ray was normal Therapeutics: Declined pain meds ED Course: Stable, discussed with Dr. Vásquez will follow-up with this patient. Impression: Hip replacement Wound check Prescriptions: None Plan: Follow-up with Dr. Vásquez in 2 days, return to ER if fevers occur, worsening pain any other concerns. Definitive disposition and diagnosis as appropriate pending reevaluation and review of above. Left Hip Pain Score (Numeric/FACES): 6 - Related Data Allergies Allergy/AdvReac Type Severity Reaction Status Date / Time cephalexin [From Keflex] Allergy Hives Verified 04/02/19 17:42 hydrocodone Allergy Itching Verified 04/02/19 17:42 Home Meds: Home Meds Aspirin 81 mg PO DAILY 08/28/18 [History] Metoprolol Succinate 25 mg PO BID 12/03/18 [History] atorvaSTATin Calcium [Atorvastatin Calcium] 40 mg PO BEDTIME 03/24/19 [History] metFORMIN HCl [Metformin HCl ER] 500 mg PO QAM 03/24/19 [History] Past Medical History - Past Health History Medical/Surgical History: Denies Medical/Surgical History HEENT History: Reports: None Cardiovascular History: Reports: Arrhythmia, Heart Failure (nonichemic cardiomyopathy, EF 40%. Zio patch revealed NSVT.), High Cholesterol, Hypertension, Other (See Below) (nonischemic cardiomyopathy) Other Cardiovascular History: wore a monitor for awhile- had 1 episode of arrythmia (unknown type)- will have MRI on 03/25/19, cardiac cath 09/15 completely normal per patient Respiratory History: Reports: Sleep Apnea Other Respiratory History: unable to tolerate CPAP or BiPAP due to PTSD with things covering his face. Gastrointestinal History: Reports: GERD, Hiatal Hernia Other Gastrointestinal History: shalom GERD for 20 years Genitourinary History: Reports: None Musculoskeletal History: Reports: Arthritis, Fracture Other Musculoskeletal History: hx of fx finger and arm as a child Neurological History: Reports: Migraines, Other (See Below) Other Neuro History: hx of motion sickness and claustrophobia Psychiatric History: Reports: None Endocrine/Metabolic History: Reports: Diabetes, Type II, Obesity/BMI 30+ Other Endocrine/Metabolic History: has A1C of 6.4, was put on Metformin- A1C is now 5.3 Hematologic History: Reports: None Immunologic History: Reports: None Oncologic (Cancer) History: Reports: None Dermatologic History: Reports: None - Infectious Disease History Infectious Disease History: Reports: Chicken Pox - Past Surgical History Head Surgeries/Procedures: Reports: None HEENT Surgical History: Reports: Naso-Sinus Surgery Other HEENT Surgeries/Procedures: Septum repair of bilateral nare Cardiovascular Surgical History: Reports: Other (See Below) Other Cardiovascular Surgeries/Procedures: hx of Angiogram- no blockage found Respiratory Surgical History: Reports: None GI Surgical History: Reports: Azalia Fundoplication Other GI Surgeries/Procedures: Gerd surgery Male Surgical History: Reports: None Endocrine Surgical History: Reports: None Neurological Surgical History: Reports: None Musculoskeletal Surgical History: Reports: Other (See Below) Other Musculoskeletal Surgeries/Procedures:: hx of Fasciotomy right calf- had cyst behind knee rupture causing bleeding into calf area- causing Compartment Syndrome Oncologic Surgical History: Reports: None Dermatological Surgical History: Reports: None Social & Family History - Family History Family Medical History: Noncontributory - Caffeine Use Caffeine Use: Reports: Coffee Caffeine Use Comment: 1cup/day - Living Situation & Occupation Living situation: Reports: Occupation: Unemployed Review of Systems - Review of Systems Review Of Systems: See Below ED EXAM, GENERAL - Physical Exam Exam: See Below (See history of present illness) Course - Vital Signs Last Recorded V/S: Last Vital Signs Temp 97.7 F 04/02/19 19:10 Pulse 56 L 04/02/19 19:10 Resp 18 04/02/19 19:10 BP 130/67 04/02/19 19:10 Pulse Ox 95 04/02/19 19:10 - Orders/Labs/Meds Labs: Laboratory Tests 04/02/19 Range/Units 18:32 WBC 9.90 (4.0-11.0) K/uL RBC 3.82 L (4.50-5.90) M/uL Hgb 11.6 L (13.0-17.0) g/dL Hct 35.6 L (38.0-50.0) % MCV 93.2 (80.0-98.0) fL MCH 30.4 (27.0-32.0) pg MCHC 32.6 (31.0-37.0) g/dL RDW Std Deviation 45.7 (28.0-62.0) fl RDW Coeff of Francine 14 (11.0-15.0) % Plt Count 182 (150-400) K/uL MPV 10.30 (7.40-12.00) fL Neut % (Auto) 59.2 (48.0-80.0) % Lymph % (Auto) 24.7 (16.0-40.0) % [place] % (Auto) 14.0 (0.0-15.0) % Eos % (Auto) 1.8 (0.0-7.0) % Baso % (Auto) 0.3 (0.0-1.5) % Neut # (Auto) 5.9 H (1.4-5.7) K/uL Lymph # (Auto) 2.5 H (0.6-2.4) K/uL [place] # (Auto) 1.4 H (0.0-0.8) K/uL Eos # (Auto) 0.2 (0.0-0.7) K/uL Baso # (Auto) 0.0 (0.0-0.1) K/uL Nucleated RBC % 0.0 /100WBC Nucleated RBCs # 0 K/uL Departure - Departure Time of Disposition: 18:49 Disposition: Home, Self-Care 01 Condition: Good Clinical Impression: Encounter for postoperative wound check - Discharge Information *PRESCRIPTION DRUG MONITORING PROGRAM REVIEWED*: No *COPY OF PRESCRIPTION DRUG MONITORING REPORT IN PATIENT VONNIE: No Instructions: Wound Check Referrals: PCP,Unknown [Primary Care Provider] - Forms: ED Department Discharge Additional Instructions: The following information is given to patients seen in the emergency department who are being discharged to home. This information is to outline your options for follow-up care. We provide all patients seen in our emergency department with a follow-up referral. The need for follow-up, as well as the timing and circumstances, are variable depending upon the specifics of your emergency department visit. If you don't have a primary care physician on staff, we will provide you with a referral. We always advise you to contact your personal physician following an emergency department visit to inform them of the circumstance of the visit and for follow-up with them and/or the need for any referrals to a consulting specialist. The emergency department will also refer you to a specialist when appropriate. This referral assures that you have the opportunity for follow-up care with a specialist. All of these measure are taken in an effort to provide you with optimal care, which includes your follow-up. Under all circumstances we always encourage you to contact your private physician who remains a resource for coordinating your care. When calling for follow-up care, please make the office aware that this follow-up is from your recent emergency room visit. If for any reason you are refused follow-up, please contact the [facility] Emergency Department at and asked to speak to the emergency department charge nurse. Take meds as directed, follow up with your primary care physician, return to ER if symptoms worsen or change. [facility] Specialty Care - Orthopedic Clinic Professional Building [address] [place] [address], [address] [place] [address] [facility] Primary Care [address] [place] [id number]
--- NOTE | 2019-04-02 18:51 | CR ---
Indication: Postop day 3 status post left hip arthroplasty. Sensation of popping with stepping Technique: Frontal view pelvis, two view left hip Comparison: December 31, 2018 Findings: Status post left hip arthroplasty. Alignment is anatomic. No hardware complication or fracture identified. Moderate degenerative changes in the right hip joint and within the lower lumbar spine. The pelvic ring is intact. Impression: No acute abnormality identified. Dictated by Margaret Christianson MD @ Apr 02 2019 6:50PM Signed by Dr. Margaret Christianson @ Apr 02 2019 6:50PM
[2019-04-02 19:11] VITALS: BP 130/67
== END 2019-04-02 19:11 | disposition home or self-care (01) ==
LOC: MW.ED 17:10
DX: Z47.89 Encounter for other orthopedic aftercare (principal); Z88.1 Allergy status to other antibiotic agents; Z88.6 Allergy status to analgesic agent; Z79.82 Long term (current) use of aspirin; E11.9 Type 2 diabetes mellitus without complications; Z79.84 Long term (current) use of oral hypoglycemic drugs; Z79.899 Other long term (current) drug therapy; K21.9 Gastro-esophageal reflux disease without esophagitis
CPT/HCPCS: 36415; 73502-26-LT; 73502-LT; 85025; 99283-25

== ENCOUNTER 2019-04-03 23:48 | Emergency (ER) | payer MEDICAID, OTHER ==
--- NOTE | 2019-04-04 00:01 | EDM.PDOC ---
ED HPI GENERAL MEDICAL PROBLEM - General Chief Complaint: Wound Recheck Stated Complaint: NEED WOUND CARE, POST OP Time Seen by Provider: 04/03/19 23:49 - History of Present Illness INITIAL COMMENTS - FREE TEXT/NARRATIVE: HISTORY AND PHYSICAL: History of present illness: Patient's 58-year-old white male who is status post left hip replacement who presents today for dressing change he states his postop dressing has become filled with fluid after he showered today. There is no other complaints he was seen in the ED prior for evaluation and workup done including x-ray and lab work was unremarkable they did discuss case with orthopedic surgery. I also contacted orthopedic surgery regarding this to request dressing change and replacement. Review of systems: As per history of present illness and below otherwise all systems reviewed and negative. Past medical history: As per history of present illness and as reviewed below otherwise noncontributory. Surgical history: As per history of present illness and as reviewed below otherwise noncontributory. Social history: No reported history of drug or alcohol abuse. Family history: As per history of present illness and as reviewed below otherwise noncontributory. Physical exam: HEENT: Atraumatic, normocephalic, pupils reactive, negative for conjunctival pallor or scleral icterus, mucous membranes moist, throat clear, neck supple, nontender, trachea midline. Lungs: Clear to auscultation, breath sounds equal bilaterally, chest nontender. Heart: S1S2, regular, negative for clicks, rubs, or JVD. Abdomen: Soft, nondistended, nontender. Negative for masses or hepatosplenomegaly. Negative for costovertebral tenderness. Pelvis: Stable nontender. Genitourinary: Deferred. Rectal: Deferred. Extremities: Left hip with dressing in place and accumulated fluid noted this was removed wound appears intact with no evidence of infection under sterile conditions Aquasol dressing was reapplied. Neuro: Awake, alert, oriented. Cranial nerves II through XII unremarkable. Cerebellum unremarkable. Motor and sensory unremarkable throughout. Exam nonfocal. Diagnostics: None Therapeutics: With a sepsis dressing change left hip with Aquasol was accomplished Impression: #1 medical screening exam with dressing change #2 recent left hip replacement Definitive disposition and diagnosis as appropriate pending reevaluation and review of above. - Related Data Allergies Allergy/AdvReac Type Severity Reaction Status Date / Time cephalexin [From Keflex] Allergy Hives Verified 04/03/19 23:56 hydrocodone Allergy Itching Verified 04/03/19 23:56 Home Meds: Home Meds Aspirin 81 mg PO DAILY 08/28/18 [History] Metoprolol Succinate 25 mg PO BID 12/03/18 [History] atorvaSTATin Calcium [Atorvastatin Calcium] 40 mg PO BEDTIME 03/24/19 [History] metFORMIN HCl [Metformin HCl ER] 500 mg PO QAM 03/24/19 [History] Past Medical History - Past Health History Medical/Surgical History: Denies Medical/Surgical History HEENT History: Reports: None Cardiovascular History: Reports: Arrhythmia, Heart Failure (nonichemic cardiomyopathy, EF 40%. Zio patch revealed NSVT.), High Cholesterol, Hypertension, Other (See Below) (nonischemic cardiomyopathy) Other Cardiovascular History: wore a monitor for awhile- had 1 episode of arrythmia (unknown type)- will have MRI on 03/25/19, cardiac cath 09/15 completely normal per patient Respiratory History: Reports: Sleep Apnea Other Respiratory History: unable to tolerate CPAP or BiPAP due to PTSD with things covering his face. Gastrointestinal History: Reports: GERD, Hiatal Hernia Other Gastrointestinal History: shalom GERD for 20 years Genitourinary History: Reports: None Musculoskeletal History: Reports: Arthritis, Fracture Other Musculoskeletal History: hx of fx finger and arm as a child Neurological History: Reports: Migraines, Other (See Below) Other Neuro History: hx of motion sickness and claustrophobia Psychiatric History: Reports: None Endocrine/Metabolic History: Reports: Diabetes, Type II, Obesity/BMI 30+ Other Endocrine/Metabolic History: has A1C of 6.4, was put on Metformin- A1C is now 5.3 Hematologic History: Reports: None Immunologic History: Reports: None Oncologic (Cancer) History: Reports: None Dermatologic History: Reports: None - Infectious Disease History Infectious Disease History: Reports: Chicken Pox - Past Surgical History Head Surgeries/Procedures: Reports: None HEENT Surgical History: Reports: Naso-Sinus Surgery Other HEENT Surgeries/Procedures: Septum repair of bilateral nare Cardiovascular Surgical History: Reports: Other (See Below) Other Cardiovascular Surgeries/Procedures: hx of Angiogram- no blockage found Respiratory Surgical History: Reports: None GI Surgical History: Reports: Azalia Fundoplication Other GI Surgeries/Procedures: Gerd surgery Male Surgical History: Reports: None Endocrine Surgical History: Reports: None Neurological Surgical History: Reports: None Musculoskeletal Surgical History: Reports: Other (See Below) Other Musculoskeletal Surgeries/Procedures:: hx of Fasciotomy right calf- had cyst behind knee rupture causing bleeding into calf area- causing Compartment Syndrome Oncologic Surgical History: Reports: None Dermatological Surgical History: Reports: None Social & Family History - Family History Family Medical History: Noncontributory - Caffeine Use Caffeine Use: Reports: Coffee Caffeine Use Comment: 1cup/day - Living Situation & Occupation Living situation: Reports: Occupation: Unemployed ED ROS GENERAL - Review of Systems Review Of Systems: ROS reveals no pertinent complaints other than HPI. ED EXAM, GENERAL - Physical Exam Exam: See Below (See dictation) Departure - Departure Time of Disposition: 00:00 Disposition: Home, Self-Care 01 Condition: Good Clinical Impression: Dressing change, Encounter for medical screening examination - Discharge Information Referrals: PCP,None [Primary Care Provider] - Additional Instructions: The following information is given to patients seen in the emergency department who are being discharged to home. This information is to outline your options for follow-up care. We provide all patients seen in our emergency department with a follow-up referral. The need for follow-up, as well as the timing and circumstances, are variable depending upon the specifics of your emergency department visit. If you don't have a primary care physician on staff, we will provide you with a referral. We always advise you to contact your personal physician following an emergency department visit to inform them of the circumstance of the visit and for follow-up with them and/or the need for any referrals to a consulting specialist. The emergency department will also refer you to a specialist when appropriate. This referral assures that you have the opportunity for followup care with a specialist. All of these measure are taken in an effort to provide you with optimal care, which includes your followup. Under all circumstances we always encourage you to contact your private physician who remains a resource for coordinating your care. When calling for followup care, please make the office aware that this follow-up is from your recent emergency room visit. If for any reason you are refused follow-up, please contact the [facility] emergency department at and asked to speak to the emergency department charge nurse. Postop care as discussed follow-up as scheduled with orthopedic surgery return as needed as discussed
[2019-04-04 00:31] VITALS: BP 141/71
== END 2019-04-04 00:30 | disposition home or self-care (01) ==
LOC: MW.ED 23:48
DX: Z48.89 Encounter for other specified surgical aftercare (principal); I11.0 Hypertensive heart disease with heart failure; I50.9 Heart failure, unspecified; E11.9 Type 2 diabetes mellitus without complications; E78.00 Pure hypercholesterolemia, unspecified; M19.90 Unspecified osteoarthritis, unspecified site; E66.9 Obesity, unspecified; Z68.41 Body mass index [BMI] 40.0-44.9, adult; Z88.5 Allergy status to narcotic agent; Z88.1 Allergy status to other antibiotic agents; Z79.82 Long term (current) use of aspirin; Z79.84 Long term (current) use of oral hypoglycemic drugs; Z79.899 Other long term (current) drug therapy
CPT/HCPCS: 99282

== ENCOUNTER 2019-04-04 07:50 | Emergency (ER) | payer MEDICAID, OTHER ==
[2019-04-04] MEDS ORDERED: Albuterol 0.083% 2.5 MG/3 ML Neb Soln NEB ONE (08:44)
[2019-04-04] MEDS ORDERED: Sodium Chloride 0.9% 1,000 ML IV ONE (08:44)
[2019-04-04] MEDS ORDERED: Magnesium Sulfate/Water 2 GM in Premix Bag 1 BAG IV ONE (08:44)
--- NOTE | 2019-04-04 09:03 | EDM.PDOC ---
ED HPI GENERAL MEDICAL PROBLEM - General Chief Complaint: Wound Recheck Stated Complaint: WET CAST, BLEEDING FROM WOUND Time Seen by Provider: 04/04/19 07:58 Source of Information: Reports: Patient History Limitations: Reports: No Limitations - History of Present Illness INITIAL COMMENTS - FREE TEXT/NARRATIVE: History of present illness: []Patient had hip surgery on March 31 and has been here 3 days in a row for wound checks and dressing changes. He came today for the same reason denies any fevers or chills says his pain is increasing and his hip is still popping when he walks. Patient states his dressing now is pooling blood. Review of systems: As per history of present illness and below otherwise all systems reviewed and negative. Past medical history: As per history of present illness and as reviewed below otherwise noncontributory. Surgical history: As per history of present illness and as reviewed below otherwise noncontributory. Social history: No reported history of drug or alcohol abuse. Family history: As per history of present illness and as reviewed below otherwise noncontributory. Physical exam: General: Well developed, well nourished in NAD HEENT: Atraumatic, normocephalic, pupils reactive, negative for conjunctival pallor or scleral icterus, mucous membranes moist, throat clear, neck supple, nontender, trachea midline. Lungs: Clear to auscultation, breath sounds equal bilaterally, chest nontender. Heart: S1S2, regular, negative for clicks, rubs, or JVD. Abdomen: NABS, Soft, nondistended, nontender. Negative for masses or hepatosplenomegaly. Negative for costovertebral tenderness. Pelvis: Stable nontender. Genitourinary: Deferred. Rectal: Deferred. Extremities: Left hip incision intact there is no dehiscence there is serous sanguinous drainage that is very slow and mild there is no purulent drainage or fluctuance, negative for cords or calf pain. Neurovascular unremarkable. Neuro: Awake, alert, oriented. Cranial nerves II through XII unremarkable. Cerebellum unremarkable. Motor and sensory unremarkable throughout. Exam nonfocal. Skin:warm and dry Diagnostics: Bedside glucose-110 Therapeutics: Dressing changed ED Course: Stable Impression: Wound check/dressing change Prescriptions: None Plan: follow up With orthopedics tomorrow Definitive disposition and diagnosis as appropriate pending reevaluation and review of above. L hip Pain Score (Numeric/FACES): 9 - Related Data Allergies Allergy/AdvReac Type Severity Reaction Status Date / Time cephalexin [From Keflex] Allergy Hives Verified 04/04/19 08:12 hydrocodone Allergy Itching Verified 04/04/19 08:12 Home Meds: Home Meds Aspirin 81 mg PO DAILY 08/28/18 [History] Metoprolol Succinate 25 mg PO BID 12/03/18 [History] atorvaSTATin Calcium [Atorvastatin Calcium] 40 mg PO BEDTIME 03/24/19 [History] metFORMIN HCl [Metformin HCl ER] 500 mg PO QAM 03/24/19 [History] Past Medical History - Past Health History Medical/Surgical History: Denies Medical/Surgical History HEENT History: Reports: None Cardiovascular History: Reports: Arrhythmia, Heart Failure, High Cholesterol, Hypertension, Other (See Below) Other Cardiovascular History: wore a monitor for awhile- had 1 episode of arrythmia (unknown type)- will have MRI on 03/25/19, cardiac cath 09/15 completely normal per patient Respiratory History: Reports: Sleep Apnea Other Respiratory History: unable to tolerate CPAP or BiPAP due to PTSD with things covering his face. Gastrointestinal History: Reports: GERD, Hiatal Hernia Other Gastrointestinal History: shalom GERD for 20 years Genitourinary History: Reports: None Musculoskeletal History: Reports: Arthritis, Fracture Other Musculoskeletal History: hx of fx finger and arm as a child Neurological History: Reports: Migraines, Other (See Below) Other Neuro History: hx of motion sickness and claustrophobia Psychiatric History: Reports: None Endocrine/Metabolic History: Reports: Diabetes, Type II, Obesity/BMI 30+ Other Endocrine/Metabolic History: has A1C of 6.4, was put on Metformin- A1C is now 5.3 Hematologic History: Reports: None Immunologic History: Reports: None Oncologic (Cancer) History: Reports: None Dermatologic History: Reports: None - Infectious Disease History Infectious Disease History: Reports: Chicken Pox - Past Surgical History Head Surgeries/Procedures: Reports: None HEENT Surgical History: Reports: Naso-Sinus Surgery Other HEENT Surgeries/Procedures: Septum repair of bilateral nare Cardiovascular Surgical History: Reports: Other (See Below) Other Cardiovascular Surgeries/Procedures: hx of Angiogram- no blockage found Respiratory Surgical History: Reports: None GI Surgical History: Reports: Azalia Fundoplication Other GI Surgeries/Procedures: Gerd surgery Male Surgical History: Reports: None Endocrine Surgical History: Reports: None Neurological Surgical History: Reports: None Musculoskeletal Surgical History: Reports: Other (See Below) Other Musculoskeletal Surgeries/Procedures:: hx of Fasciotomy right calf- had cyst behind knee rupture causing bleeding into calf area- causing Compartment Syndrome Oncologic Surgical History: Reports: None Dermatological Surgical History: Reports: None Social & Family History - Family History Family Medical History: Noncontributory - Tobacco Use Smoking Status *Q: Former Smoker Used Tobacco, but Quit: Yes Month/Year Tobacco Last Used: 1980 - Caffeine Use Caffeine Use: Reports: Coffee Caffeine Use Comment: 1cup/day - Recreational Drug Use Recreational Drug Use: No - Living Situation & Occupation Living situation: Reports: Occupation: Unemployed ED ROS GENERAL - Review of Systems Review Of Systems: See Below ED EXAM, SKIN/RASH Exam: See Below Course - Vital Signs Last Recorded V/S: Last Vital Signs Temp 97.0 F 04/04/19 08:09 Pulse 77 04/04/19 08:09 Resp 18 04/04/19 08:09 BP 139/67 04/04/19 08:09 Pulse Ox 97 04/04/19 08:09 - Orders/Labs/Meds Orders: Active Orders 24 hr Category Date Time Status Blood Glucose Check, Bedside [RC] ONETIME Care 04/04/19 08:47 Active RT Aerosol Therapy [RC] ASDIRECTED Care 04/04/19 08:44 Inactive Chest 1V Frontal [CR] Stat Exams 04/04/19 08:44 Stop Req Labs: Laboratory Tests 04/04/19 Range/Units 08:48 POC Glucose 110 (60-110) mg/dL Departure - Departure Time of Disposition: 08:59 Disposition: Home, Self-Care 01 Condition: Good Clinical Impression: Visit for wound check - Discharge Information *PRESCRIPTION DRUG MONITORING PROGRAM REVIEWED*: No *COPY OF PRESCRIPTION DRUG MONITORING REPORT IN PATIENT VONNIE: No Referrals: PCP,Unknown [Primary Care Provider] - Additional Instructions: The following information is given to patients seen in the emergency department who are being discharged to home. This information is to outline your options for follow-up care. We provide all patients seen in our emergency department with a follow-up referral. The need for follow-up, as well as the timing and circumstances, are variable depending upon the specifics of your emergency department visit. If you don't have a primary care physician on staff, we will provide you with a referral. We always advise you to contact your personal physician following an emergency department visit to inform them of the circumstance of the visit and for follow-up with them and/or the need for any referrals to a consulting specialist. The emergency department will also refer you to a specialist when appropriate. This referral assures that you have the opportunity for follow-up care with a specialist. All of these measure are taken in an effort to provide you with optimal care, which includes your follow-up. Under all circumstances we always encourage you to contact your private physician who remains a resource for coordinating your care. When calling for follow-up care, please make the office aware that this follow-up is from your recent emergency room visit. If for any reason you are refused follow-up, please contact the [facility] Emergency Department at and asked to speak to the emergency department charge nurse. [facility] - [facility] [address], [facility] [address] [place] [address] - My Orders Last 24 Hours: My Active Orders 04/04/19 08:44 RT Aerosol Therapy [RC] ASDIRECTED Chest 1V Frontal [CR] Stat 04/04/19 08:47 Blood Glucose Check, Bedside [RC] ONETIME - Assessment/Plan Last 24 Hours: My Active Orders 04/04/19 08:44 RT Aerosol Therapy [RC] ASDIRECTED Chest 1V Frontal [CR] Stat 04/04/19 08:47 Blood Glucose Check, Bedside [RC] ONETIME
[2019-04-04 09:09] VITALS: BP 133/79
== END 2019-04-04 09:09 | disposition home or self-care (01) ==
LOC: MW.ED 07:50
DX: Z48.89 Encounter for other specified surgical aftercare (principal); I11.0 Hypertensive heart disease with heart failure; I50.9 Heart failure, unspecified; E11.9 Type 2 diabetes mellitus without complications; E66.9 Obesity, unspecified; Z88.1 Allergy status to other antibiotic agents; Z79.82 Long term (current) use of aspirin; Z79.84 Long term (current) use of oral hypoglycemic drugs; Z79.899 Other long term (current) drug therapy; Z87.891 Personal history of nicotine dependence
CPT/HCPCS: 82962; 87070; 99283

== ENCOUNTER 2019-04-04 22:34 | Emergency (ER) | payer MEDICAID, OTHER ==
[2019-04-04 22:51] VITALS: BP 146/75
--- NOTE | 2019-04-04 22:54 | EDM.PDOC ---
ED HPI GENERAL MEDICAL PROBLEM - General Chief Complaint: Lower Extremity Injury/Pain Stated Complaint: BLEEDING Time Seen by Provider: 04/04/19 22:37 - History of Present Illness INITIAL COMMENTS - FREE TEXT/NARRATIVE: HISTORY AND PHYSICAL: History of present illness: Patient is a 58-year-old white male with status post recent hip replacement is been seen on multiple prior occasions in emergency department for dressing changes and serosanguineous accumulation in his dressing. He has been worked up on an earlier visit including x-ray and blood work that was unremarkable there has been serial discussions with his orthopedist regarding this who agrees with dressing changes and follow-up he returns again today with same is no fever chills nausea vomiting or pain he is on aspirin daily denies other bleeding diathesis or anticoagulants Review of systems: As per history of present illness and below otherwise all systems reviewed and negative. Past medical history: As per history of present illness and as reviewed below otherwise noncontributory. Surgical history: As per history of present illness and as reviewed below otherwise noncontributory. Social history: No reported history of drug or alcohol abuse. Family history: As per history of present illness and as reviewed below otherwise noncontributory. Physical exam: HEENT: Atraumatic, normocephalic, pupils reactive, negative for conjunctival pallor or scleral icterus, mucous membranes moist, throat clear, neck supple, nontender, trachea midline. Lungs: Clear to auscultation, breath sounds equal bilaterally, chest nontender. Heart: S1S2, regular, negative for clicks, rubs, or JVD. Abdomen: Soft, nondistended, nontender. Negative for masses or hepatosplenomegaly. Negative for costovertebral tenderness. Pelvis: Stable nontender. Genitourinary: Deferred. Rectal: Deferred. Extremities: Left hip has a wound dressing with moderate amount of serosanguineous fluid similar to prior within it. Upon dressing change wound is well appearing with no evidence of infection Neuro: Awake, alert, oriented. Cranial nerves II through XII unremarkable. Cerebellum unremarkable. Motor and sensory unremarkable throughout. Exam nonfocal. Diagnostics: CBC CMP PT/INR Therapeutics: Dressing change with asepsis Impression: #1 wound check and dressing change status post left total hip replacement Definitive disposition and diagnosis as appropriate pending reevaluation and review of above. left hip Pain Score (Numeric/FACES): 8 - Related Data Allergies Allergy/AdvReac Type Severity Reaction Status Date / Time cephalexin [From Keflex] Allergy Hives Verified 04/04/19 22:51 hydrocodone Allergy Itching Verified 04/04/19 22:51 Home Meds: Home Meds Aspirin 81 mg PO DAILY 08/28/18 [History] Metoprolol Succinate 25 mg PO BID 12/03/18 [History] atorvaSTATin Calcium [Atorvastatin Calcium] 40 mg PO BEDTIME 03/24/19 [History] metFORMIN HCl [Metformin HCl ER] 500 mg PO QAM 03/24/19 [History] Past Medical History - Past Health History Medical/Surgical History: Denies Medical/Surgical History HEENT History: Reports: None Cardiovascular History: Reports: Arrhythmia, Heart Failure, High Cholesterol, Hypertension, Other (See Below) Other Cardiovascular History: wore a monitor for awhile- had 1 episode of arrythmia (unknown type)- will have MRI on 03/25/19, cardiac cath 09/15 completely normal per patient Respiratory History: Reports: Sleep Apnea Other Respiratory History: unable to tolerate CPAP or BiPAP due to PTSD with things covering his face. Gastrointestinal History: Reports: GERD, Hiatal Hernia Other Gastrointestinal History: shalom GERD for 20 years Genitourinary History: Reports: None Musculoskeletal History: Reports: Arthritis, Fracture Other Musculoskeletal History: hx of fx finger and arm as a child Neurological History: Reports: Migraines, Other (See Below) Other Neuro History: hx of motion sickness and claustrophobia Psychiatric History: Reports: None Endocrine/Metabolic History: Reports: Diabetes, Type II, Obesity/BMI 30+ Other Endocrine/Metabolic History: has A1C of 6.4, was put on Metformin- A1C is now 5.3 Hematologic History: Reports: None Immunologic History: Reports: None Oncologic (Cancer) History: Reports: None Dermatologic History: Reports: None - Infectious Disease History Infectious Disease History: Reports: Chicken Pox - Past Surgical History Head Surgeries/Procedures: Reports: None HEENT Surgical History: Reports: Naso-Sinus Surgery Other HEENT Surgeries/Procedures: Septum repair of bilateral nare Cardiovascular Surgical History: Reports: Other (See Below) Other Cardiovascular Surgeries/Procedures: hx of Angiogram- no blockage found Respiratory Surgical History: Reports: None GI Surgical History: Reports: Azalia Fundoplication Other GI Surgeries/Procedures: Gerd surgery Male Surgical History: Reports: None Endocrine Surgical History: Reports: None Neurological Surgical History: Reports: None Musculoskeletal Surgical History: Reports: Other (See Below) Other Musculoskeletal Surgeries/Procedures:: hx of Fasciotomy right calf- had cyst behind knee rupture causing bleeding into calf area- causing Compartment Syndrome Oncologic Surgical History: Reports: None Dermatological Surgical History: Reports: None Social & Family History - Family History Family Medical History: Noncontributory - Caffeine Use Caffeine Use: Reports: Coffee Caffeine Use Comment: 1cup/day - Living Situation & Occupation Living situation: Reports: Occupation: Unemployed Review of Systems - Review of Systems Review Of Systems: ROS reveals no pertinent complaints other than HPI. ED EXAM, GENERAL - Physical Exam Exam: See Below (See dictation) Course - Vital Signs Last Recorded V/S: Last Vital Signs Temp 36.1 C 04/04/19 22:34 Pulse 90 04/04/19 22:34 Resp 18 04/04/19 22:34 BP 146/75 H 04/04/19 22:34 Pulse Ox 94 L 04/04/19 22:34 - Orders/Labs/Meds Labs: Laboratory Tests 04/04/19 04/04/19 04/04/19 Range/Units 22:50 22:50 22:50 WBC 8.09 (4.0-11.0) K/uL RBC 4.02 L (4.50-5.90) M/uL Hgb 12.3 L (13.0-17.0) g/dL Hct 38.0 (38.0-50.0) % MCV 94.5 (80.0-98.0) fL MCH 30.6 (27.0-32.0) pg MCHC 32.4 (31.0-37.0) g/dL RDW Std Deviation 46.4 (28.0-62.0) fl RDW Coeff of Francine 14 (11.0-15.0) % Plt Count 251 (150-400) K/uL MPV 9.70 (7.40-12.00) fL Neut % (Auto) 56.4 (48.0-80.0) % Lymph % (Auto) 29.7 (16.0-40.0) % Frederick % (Auto) 11.1 (0.0-15.0) % Eos % (Auto) 2.6 (0.0-7.0) % Baso % (Auto) 0.2 (0.0-1.5) % Neut # (Auto) 4.6 (1.4-5.7) K/uL Lymph # (Auto) 2.4 (0.6-2.4) K/uL Frederick # (Auto) 0.9 H (0.0-0.8) K/uL Eos # (Auto) 0.2 (0.0-0.7) K/uL Baso # (Auto) 0.0 (0.0-0.1) K/uL Nucleated RBC % 0.0 /100WBC Nucleated RBCs # 0 K/uL INR 0.93 Sodium 145 (136-148) mmol/L Potassium 4.5 (3.5-5.1) mmol/L Chloride 103 (98-107) mmol/L Carbon Dioxide 32.1 H (21.0-32.0) mmol/L BUN 12 (7.0-18.0) mg/dL Creatinine 1.0 (0.8-1.3) mg/dL Est Cr Clr Drug Dosing 89.46 mL/min Estimated GFR (MDRD) > 60.0 ml/min Glucose 170 H (74-106) mg/dL Calcium 9.0 (8.5-10.1) mg/dL Total Bilirubin 0.6 (0.2-1.0) mg/dL AST 25 (15-37) IU/L ALT 33 (14-63) IU/L Alkaline Phosphatase 94 (46-116) U/L Total Protein 6.6 (6.4-8.2) g/dL Albumin 3.0 L (3.4-5.0) g/dL Globulin 3.6 (2.6-4.0) g/dL Albumin/Globulin Ratio 0.8 L (0.9-1.6) Departure - Departure Time of Disposition: 04:18 Disposition: Home, Self-Care 01 Condition: Good Clinical Impression: Encounter for medical screening examination, Visit for wound check - Discharge Information Instructions: Wound Care, Adult Referrals: PCP,None [Primary Care Provider] - Forms: ED Department Discharge
[2019-04-04 23:15] LABS: BLOOD UREA NITROGEN,BUN 12 mg/dL (7.0-18.0); CARBON DIOXIDE,CO2 32.1 mmol/L (21.0-32.0); CHLORIDE,CL 103 mmol/L (98-107); GLUCOSE RANDOM 170 mg/dL (74-106); POTASSIUM,K 4.5 mmol/L (3.5-5.1); SODIUM,NA 145 mmol/L (136-148)
== END 2019-04-04 23:50 | disposition home or self-care (01) ==
LOC: MW.ED 22:34
DX: Z48.89 Encounter for other specified surgical aftercare (principal); I11.0 Hypertensive heart disease with heart failure; I50.9 Heart failure, unspecified; E11.9 Type 2 diabetes mellitus without complications; E66.9 Obesity, unspecified; Z96.642 Presence of left artificial hip joint; Z79.82 Long term (current) use of aspirin; Z79.84 Long term (current) use of oral hypoglycemic drugs; Z88.1 Allergy status to other antibiotic agents
CPT/HCPCS: 36415; 80053; 85025; 85610; 99283

== ENCOUNTER 2019-04-08 11:14 | Emergency (ER) | payer MEDICAID ==
[2019-04-08] MEDS ORDERED: Sodium Chloride 0.9% 10 ML Syringe FLUSH PRN (11:16)
[2019-04-08] MEDS ORDERED: Sodium Chloride 0.9% 2.5 ML Syringe FLUSH PRN (11:16)
--- NOTE | 2019-04-08 11:28 | EDM.PDOC ---
ED HPI GENERAL MEDICAL PROBLEM - General Chief Complaint: Lower Extremity Injury/Pain Stated Complaint: PAIN Time Seen by Provider: 04/08/19 11:18 Source of Information: Reports: Patient History Limitations: Reports: No Limitations - History of Present Illness INITIAL COMMENTS - FREE TEXT/NARRATIVE: History of present illness: []Patient had a hip replacement by Dr. ANTOINE April 30 failed conservative treatment of osteoarthritic pain, was sent to the ER from Dr. Flores's office for blood work and transfer to another orthopedic surgeon. I'll here requesting that we repeat cultures, x-rays,CRP and sedimentation rate are to transfer. She was arranging an accepting physician and transfer. Review of systems: As per history of present illness and below otherwise all systems reviewed and negative. Past medical history: As per history of present illness and as reviewed below otherwise noncontributory. Surgical history: As per history of present illness and as reviewed below otherwise noncontributory. Social history: No reported history of drug or alcohol abuse. Family history: As per history of present illness and as reviewed below otherwise noncontributory. Physical exam: General: Well developed, well nourished in NAD HEENT: Atraumatic, normocephalic, pupils reactive, negative for conjunctival pallor or scleral icterus, mucous membranes moist, throat clear, neck supple, nontender, trachea midline. Lungs: Clear to auscultation, breath sounds equal bilaterally, chest nontender. Heart: S1S2, regular, negative for clicks, rubs, or JVD. Abdomen: NABS, Soft, nondistended, nontender. Negative for masses or hepatosplenomegaly. Negative for costovertebral tenderness. Pelvis: Stable nontender. Genitourinary: Deferred. Rectal: Deferred. Extremities: Atraumatic, negative for cords or calf pain. Neurovascular unremarkable. Neuro: Awake, alert, oriented. Cranial nerves II through XII unremarkable. Cerebellum unremarkable. Motor and sensory unremarkable throughout. Exam nonfocal. Skin:warm and dry Diagnostics: CBC, chemistry, blood cultures, CRP, sedimentation rate, hip x-ray Therapeutics: Toradol ED Course: Stable Impression: encounter for medical screening exam Prescriptions: None Plan: Transfer to [facility] for evaluation by Dr. Pramod Fontaine. Dr. Shah is on-call from the orthopedic group and will be accepting this patient Definitive disposition and diagnosis as appropriate pending reevaluation and review of above. Left Hip Pain Score (Numeric/FACES): 10 - Related Data Allergies Allergy/AdvReac Type Severity Reaction Status Date / Time cephalexin [From Keflex] Allergy Hives Verified 04/08/19 11:22 hydrocodone Allergy Itching Verified 04/08/19 11:22 Home Meds: Home Meds Aspirin 81 mg PO DAILY 08/28/18 [History] Metoprolol Succinate 25 mg PO BID 12/03/18 [History] atorvaSTATin Calcium [Atorvastatin Calcium] 40 mg PO BEDTIME 03/24/19 [History] metFORMIN HCl [Metformin HCl ER] 500 mg PO QAM 03/24/19 [History] Past Medical History - Past Health History Medical/Surgical History: Denies Medical/Surgical History HEENT History: Reports: None Cardiovascular History: Reports: Arrhythmia, Heart Failure, High Cholesterol, Hypertension, Other (See Below) Other Cardiovascular History: wore a monitor for awhile- had 1 episode of arrythmia (unknown type)- will have MRI on 03/25/19, cardiac cath 09/15 completely normal per patient Respiratory History: Reports: Sleep Apnea Other Respiratory History: unable to tolerate CPAP or BiPAP due to PTSD with things covering his face. Gastrointestinal History: Reports: GERD, Hiatal Hernia Other Gastrointestinal History: shalom GERD for 20 years Genitourinary History: Reports: None Musculoskeletal History: Reports: Arthritis, Fracture Other Musculoskeletal History: hx of fx finger and arm as a child Neurological History: Reports: Migraines, Other (See Below) Other Neuro History: hx of motion sickness and claustrophobia Psychiatric History: Reports: None Endocrine/Metabolic History: Reports: Diabetes, Type II, Obesity/BMI 30+ Other Endocrine/Metabolic History: has A1C of 6.4, was put on Metformin- A1C is now 5.3 Insulin Pump Model and Bundle Shaker: N/A Hematologic History: Reports: None Immunologic History: Reports: None Oncologic (Cancer) History: Reports: None Dermatologic History: Reports: None - Infectious Disease History Infectious Disease History: Reports: Chicken Pox - Past Surgical History Head Surgeries/Procedures: Reports: None HEENT Surgical History: Reports: Naso-Sinus Surgery Other HEENT Surgeries/Procedures: Septum repair of bilateral nare Cardiovascular Surgical History: Reports: Other (See Below) Other Cardiovascular Surgeries/Procedures: hx of Angiogram- no blockage found Respiratory Surgical History: Reports: None GI Surgical History: Reports: [place] Fundoplication Other GI Surgeries/Procedures: Gerd surgery Male Surgical History: Reports: None Endocrine Surgical History: Reports: None Neurological Surgical History: Reports: None Musculoskeletal Surgical History: Reports: Other (See Below) Other Musculoskeletal Surgeries/Procedures:: hx of Fasciotomy right calf- had cyst behind knee rupture causing bleeding into calf area- causing Compartment Syndrome Oncologic Surgical History: Reports: None Dermatological Surgical History: Reports: None Social & Family History - Family History Family Medical History: Noncontributory - Tobacco Use Smoking Status *Q: Never Smoker - Caffeine Use Caffeine Use: Reports: Coffee Caffeine Use Comment: 1cup/day - Recreational Drug Use Recreational Drug Use: No - Living Situation & Occupation Living situation: Reports: Occupation: Unemployed Review of Systems - Review of Systems Review Of Systems: See Below ED EXAM, GENERAL - Physical Exam Exam: See Below Course - Vital Signs Last Recorded V/S: Last Vital Signs Temp 98.4 F 04/08/19 13:13 Pulse 69 04/08/19 13:13 Resp 16 04/08/19 13:13 BP 147/80 H 04/08/19 13:13 Pulse Ox 94 L 04/08/19 13:13 - Orders/Labs/Meds Orders: Active Orders 24 hr Category Date Time Status CULTURE BLOOD [BC] Stat Lab 04/08/19 11:40 Received CULTURE BLOOD [BC] Stat Lab 04/08/19 11:54 Received Sodium Chloride 0.9% [Saline Flush] Med 04/08/19 11:16 Active 10 ml FLUSH ASDIRECTED PRN Sodium Chloride 0.9% [Saline Flush] Med 04/08/19 11:16 Active 2.5 ml FLUSH ASDIRECTED PRN Blood Culture x2 Reflex Set [OM.PC] Stat Oth 04/08/19 11:16 Ordered Saline Lock Insert [OM.PC] Stat Oth 04/08/19 11:16 Ordered Medication Orders Sodium Chloride (Saline Flush) 10 ml FLUSH ASDIRECTED PRN PRN Reason: Keep Vein Open Sodium Chloride (Saline Flush) 2.5 ml FLUSH ASDIRECTED PRN PRN Reason: Keep Vein Open Labs: Laboratory Tests 04/08/19 04/08/19 Range/Units 11:40 11:40 WBC 7.31 (4.0-11.0) K/uL RBC 3.84 L (4.50-5.90) M/uL Hgb 11.8 L (13.0-17.0) g/dL Hct 35.8 L (38.0-50.0) % MCV 93.2 (80.0-98.0) fL MCH 30.7 (27.0-32.0) pg MCHC 33.0 (31.0-37.0) g/dL RDW Std Deviation 45.7 (28.0-62.0) fl RDW Coeff of Francine 14 (11.0-15.0) % Plt Count 253 (150-400) K/uL MPV 9.30 (7.40-12.00) fL Neut % (Auto) 66.1 (48.0-80.0) % Lymph % (Auto) 22.4 (16.0-40.0) % [place] % (Auto) 10.0 (0.0-15.0) % Eos % (Auto) 1.4 (0.0-7.0) % Baso % (Auto) 0.1 (0.0-1.5) % Neut # (Auto) 4.8 (1.4-5.7) K/uL Lymph # (Auto) 1.6 (0.6-2.4) K/uL [place] # (Auto) 0.7 (0.0-0.8) K/uL Eos # (Auto) 0.1 (0.0-0.7) K/uL Baso # (Auto) 0.0 (0.0-0.1) K/uL Nucleated RBC % 0.0 /100WBC Nucleated RBCs # 0 K/uL ESR 69 H (0-19) mm/hr Sodium 141 (136-148) mmol/L Potassium 4.4 (3.5-5.1) mmol/L Chloride 102 (98-107) mmol/L Carbon Dioxide 30.0 (21.0-32.0) mmol/L BUN 13 (7.0-18.0) mg/dL Creatinine 1.0 (0.8-1.3) mg/dL Est Cr Clr Drug Dosing 89.46 mL/min Estimated GFR (MDRD) > 60.0 ml/min Glucose 104 (74-106) mg/dL Calcium 8.3 L (8.5-10.1) mg/dL Total Bilirubin 0.5 (0.2-1.0) mg/dL AST 15 (15-37) IU/L ALT 29 (14-63) IU/L Alkaline Phosphatase 97 (46-116) U/L C-Reactive Protein 18.70 H (0.00-0.90) mg/dL Total Protein 6.6 (6.4-8.2) g/dL Albumin 2.9 L (3.4-5.0) g/dL Globulin 3.7 (2.6-4.0) g/dL Albumin/Globulin Ratio 0.8 L (0.9-1.6) Meds: Medications Generic Name Dose Route Start Last Admin Trade Name Freq PRN Reason Stop Dose Admin Sodium Chloride 10 ml 04/08/19 11:16 Saline Flush FLUSH ASDIRECTED PRN Keep Vein Open Sodium Chloride 2.5 ml 04/08/19 11:16 Saline Flush FLUSH ASDIRECTED PRN Keep Vein Open Discontinued Medications Generic Name Dose Route Start Last Admin Trade Name Freq PRN Reason Stop Dose Admin Ketorolac Tromethamine 30 mg 04/08/19 13:27 04/08/19 13:33 Toradol IVPUSH 04/08/19 13:28 30 mg ONETIME ONE Administration Departure - Departure Time of Disposition: 16:25 Disposition: DC/Tfer to Acute Hospital 02 Condition: Good Clinical Impression: Encounter for medical screening examination - Discharge Information *PRESCRIPTION DRUG MONITORING PROGRAM REVIEWED*: Not Applicable *COPY OF PRESCRIPTION DRUG MONITORING REPORT IN PATIENT VONNIE: Not Applicable Forms: ED Department Discharge - My Orders Last 24 Hours: My Active Orders 04/08/19 11:16 Sodium Chloride 0.9% [Saline Flush] 10 ml FLUSH ASDIRECTED PRN Sodium Chloride 0.9% [Saline Flush] 2.5 ml FLUSH ASDIRECTED PRN Blood Culture x2 Reflex Set [OM.PC] Stat Saline Lock Insert [OM.PC] Stat 04/08/19 11:40 CULTURE BLOOD [BC] Stat 04/08/19 11:54 CULTURE BLOOD [BC] Stat - Assessment/Plan Last 24 Hours: My Active Orders 04/08/19 11:16 Sodium Chloride 0.9% [Saline Flush] 10 ml FLUSH ASDIRECTED PRN Sodium Chloride 0.9% [Saline Flush] 2.5 ml FLUSH ASDIRECTED PRN Blood Culture x2 Reflex Set [OM.PC] Stat Saline Lock Insert [OM.PC] Stat 04/08/19 11:40 CULTURE BLOOD [BC] Stat 04/08/19 11:54 CULTURE BLOOD [BC] Stat
[2019-04-08 12:29] LABS: BLOOD UREA NITROGEN,BUN 13 mg/dL (7.0-18.0); CHLORIDE,CL 102 mmol/L (98-107); GLUCOSE RANDOM 104 mg/dL (74-106); POTASSIUM,K 4.4 mmol/L (3.5-5.1); SODIUM,NA 141 mmol/L (136-148)
--- NOTE | 2019-04-08 12:58 | CR ---
INDICATION: Postop; pain left hip. COMPARISON: Radiographic examination of the pelvis and left hip December 31, 2018. TECHNIQUE: Three-view study pelvis and left hip. FINDINGS: Total hip arthroplasty on the left with anatomic alignment. No evidence of fracture or dislocation. Osteoarthritis right hip. IMPRESSION: 1. Total hip arthroplasty on the left with anatomic alignment. 2. No fracture or dislocation. 3. Osteoarthritis right hip. Dictated by Johnna Ball MD @ Apr 08 2019 12:56PM Signed by Dr. Johnna Ball @ Apr 08 2019 12:57PM
[2019-04-08 13:13] VITALS: BP 147/80; PULSE 69
[2019-04-08] MEDS ORDERED: Ketorolac 30 MG/ML SDV IVPUSH ONE (13:27)
== END 2019-04-08 14:23 ==
LOC: MW.ED 11:14
DX: Z13.9 Encounter for screening, unspecified (principal); I11.0 Hypertensive heart disease with heart failure; I50.9 Heart failure, unspecified; E11.9 Type 2 diabetes mellitus without complications; E78.00 Pure hypercholesterolemia, unspecified; E66.9 Obesity, unspecified; Z68.41 Body mass index [BMI] 40.0-44.9, adult; Z96.649 Presence of unspecified artificial hip joint; Z88.5 Allergy status to narcotic agent; Z88.1 Allergy status to other antibiotic agents; Z79.82 Long term (current) use of aspirin; Z79.84 Long term (current) use of oral hypoglycemic drugs; Z79.899 Other long term (current) drug therapy
CPT/HCPCS: 36415; 73502; 80053; 85025; 85652; 86140; 87040; 96374; 99284; J1885

== ENCOUNTER 2019-05-05 21:26 | Emergency (ER) | payer MEDICAID ==
[2019-05-05] MEDS ORDERED: Sodium Chloride 0.9% 10 ML Syringe FLUSH PRN (21:32)
[2019-05-05] MEDS ORDERED: Sodium Chloride 0.9% 2.5 ML Syringe FLUSH PRN (21:32)
--- NOTE | 2019-05-05 21:42 | EDM.PDOC ---
ED HPI GENERAL MEDICAL PROBLEM - General Chief Complaint: Chest Pain Stated Complaint: CHEST PAIN ALL DAY Time Seen by Provider: 05/05/19 21:32 - History of Present Illness INITIAL COMMENTS - FREE TEXT/NARRATIVE: HISTORY AND PHYSICAL: History of present illness: The patient is a 58-year-old male with a history of hypertension type 2 diabetes nonischemic cardiomyopathy and positive troponins and multiple heart catheters in the past who presents with point tenderness at the lower aspect of his sternum/xiphoid area that has been ongoing for the last few days and worsened this evening. The patient says that he has had a recent heart catheter which was negative, within the last year, as well as several heart caths in the past and he also had a cardiac MRI within the last year which he was told was inconclusive and has to be redone. He has followed with a [employer] operations intelligence officer in [place] as well as another [employer] operations intelligence officer Dr. Cui at [facility] and says that he last saw his [employer] operations intelligence officer in [place] on April 15 and everything was okay. He says that his last heart catheter was when he was transferred during his last ER visit here in August and it was negative. The patient has a left PICC line in place for IV antibiotics which he gives himself a dose daily at home due to a staph infection he contracted after his hip surgery and says he is due to complete that therapy on May 25. The patient says that he has had this uncomfortable feeling in this location at his lower sternum for several days and he was able to sleep last night but then today he is having these episodes of stabbing-like pain in the same location and he feels like things are getting worse. He is not more short of breath and says that certain movements and deep breaths may trigger it but not necessarily. He has no nausea vomiting or abdominal pain and is eating and drinking normally. He has no fever or upper respiratory symptoms. The patient has said multiple times that he feels like his "PICC line is poking him". He has no new leg pain or swelling and he did not take any specific medications for this pain. The patient did take a 325 mg aspirin this morning as he does every morning. Patient says this discomfort is different than prior episodes of chest pain and seems area localized to one area and does not radiate. He denies any trauma. The patient says that this evening when he had some stabbing like pain he did feel a little lightheaded and sweaty but currently he does not feel that way. Review of systems: As per history of present illness and below otherwise all systems reviewed and negative. Past medical history: As per history of present illness and as reviewed below otherwise noncontributory. Surgical history: As per history of present illness and as reviewed below otherwise noncontributory. Social history: No reported history of drug or alcohol abuse. Family history: As per history of present illness and as reviewed below otherwise noncontributory. Physical exam: General: Well-developed well-nourished overweight man who is nontoxic and vital signs are noted by me. He is breathing easily and speaking clearly. HEENT: Atraumatic, normocephalic, negative for conjunctival pallor or scleral icterus, mucous membranes moist, throat clear, neck supple, nontender, trachea midline. Lungs: Clear to auscultation, breath sounds equal bilaterally, chest wall with point tenderness anteriorly at the xiphoid area without defect or deformity and on palpation I am able to reproduce the pain the patient is experiencing. The remainder the chest wall is nontender and there is no soft tissue injuries ecchymosis or erythema. Heart: S1S2, regular, negative for clicks, rubs, or JVD. Abdomen: Soft, nondistended, nontender. Negative for masses or hepatosplenomegaly. Negative for costovertebral tenderness. Pelvis: Stable nontender. Genitourinary: Deferred. Rectal: Deferred. Extremities: Atraumatic, negative for cords or calf pain. Neurovascular unremarkable. There is no pedal edema or leg asymmetry and there are old scars on the right calf consistent with his prior history of fasciotomy. A PICC line is seen in the left upper extremity Neuro: Awake, alert, oriented. Cranial nerves II through XII unremarkable. Cerebellum unremarkable. Motor and sensory unremarkable throughout. Exam nonfocal. Diagnostics: EKG CBC CMP INR troponin chest x-ray d-dimer CTA of the chest Therapeutics: IV O2 monitor, patient took aspirin today so I will not redose, fentanyl Patient's pain is much improved with the fentanyl and due to his elevated d- dimer we will do a CTA of chest . He was made aware of these results and further testing necessary The patient was made aware of all testing results including the CT scan of the chest which revealed a small right lower lobe nodule which will need outpatient follow-up and the small focus in the left lower lobe of some possible early pneumonia. The patient says he is very susceptible to pneumonia and he is concerned so I will write a prescription for Levaquin that he will not fill until he has a dialogue with his infectious disease doctor in [place] in the morning as he is still receiving home IV medication for his staph infection. He says that he does not have the Percocet that he used to use at home and I will give him [facility] for that. Impression: Anterior chest wall pain, possible early focus of left lower lobe pneumonia Definitive disposition and diagnosis as appropriate pending reevaluation and review of above. Chest Pain Pain Score (Numeric/FACES): 7 - Related Data Allergies Allergy/AdvReac Type Severity Reaction Status Date / Time cephalexin [From Keflex] Allergy Hives Verified 05/05/19 21:32 hydrocodone Allergy Itching Verified 05/05/19 21:32 Home Meds: Home Meds Aspirin 325 mg PO DAILY 08/28/18 [History] Metoprolol Succinate 25 mg PO BID 12/03/18 [History] atorvaSTATin Calcium [Atorvastatin Calcium] 40 mg PO BEDTIME 03/24/19 [History] metFORMIN HCl [Metformin HCl ER] 500 mg PO QAM 03/24/19 [History] Bisacodyl 5 mg PO DAILY 05/05/19 [History] Cyclobenzaprine [Flexeril] 10 mg PO BID 05/05/19 [History] oxyCODONE HCl/Acetaminophen [Oxycodone-Acetaminophen 5-325] 1 each PO Q4HR PRN 05/05/19 [History] Past Medical History - Past Health History Medical/Surgical History: Denies Medical/Surgical History HEENT History: Reports: None Cardiovascular History: Reports: Arrhythmia, Heart Failure, High Cholesterol, Hypertension, Other (See Below) Other Cardiovascular History: wore a monitor for awhile- had 1 episode of arrythmia (unknown type)- will have MRI on 03/25/19, cardiac cath 09/15 completely normal per patient Respiratory History: Reports: Sleep Apnea Other Respiratory History: unable to tolerate CPAP or BiPAP due to PTSD with things covering his face. Gastrointestinal History: Reports: GERD, Hiatal Hernia Other Gastrointestinal History: shalom GERD for 20 years Genitourinary History: Reports: None Musculoskeletal History: Reports: Arthritis, Fracture Other Musculoskeletal History: hx of fx finger and arm as a child Neurological History: Reports: Migraines, Other (See Below) Other Neuro History: hx of motion sickness and claustrophobia Psychiatric History: Reports: None Endocrine/Metabolic History: Reports: Diabetes, Type II, Obesity/BMI 30+ Other Endocrine/Metabolic History: has A1C of 6.4, was put on Metformin- A1C is now 5.3 Insulin Pump Model and Donor Services Manager: None Hematologic History: Reports: None Immunologic History: Reports: None Oncologic (Cancer) History: Reports: None Dermatologic History: Reports: None - Infectious Disease History Infectious Disease History: Reports: Chicken Pox - Past Surgical History Head Surgeries/Procedures: Reports: None HEENT Surgical History: Reports: Naso-Sinus Surgery Other HEENT Surgeries/Procedures: Septum repair of bilateral nare Cardiovascular Surgical History: Reports: Other (See Below) Other Cardiovascular Surgeries/Procedures: hx of Angiogram- no blockage found Respiratory Surgical History: Reports: None GI Surgical History: Reports: Azalia Fundoplication Male Surgical History: Reports: None Endocrine Surgical History: Reports: None Neurological Surgical History: Reports: None Musculoskeletal Surgical History: Reports: Other (See Below) Other Musculoskeletal Surgeries/Procedures:: hx of Fasciotomy right calf- had cyst behind knee rupture causing bleeding into calf area- causing Compartment Syndrome Oncologic Surgical History: Reports: None Dermatological Surgical History: Reports: None Social & Family History - Family History Family Medical History: Noncontributory - Caffeine Use Caffeine Use: Reports: Coffee Caffeine Use Comment: 1cup/day - Living Situation & Occupation Living situation: Reports: Occupation: Unemployed ED ROS GENERAL - Review of Systems Review Of Systems: ROS reveals no pertinent complaints other than HPI. ED EXAM, GENERAL - Physical Exam Exam: See Below (see Dictation) Course - Vital Signs Last Recorded V/S: Last Vital Signs Temp 36.1 C 05/05/19 21:30 Pulse 74 05/05/19 23:40 Resp 15 05/05/19 23:40 BP 178/96 H 05/05/19 23:40 Pulse Ox 95 05/05/19 23:40 - Orders/Labs/Meds Orders: Active Orders 24 hr Category Date Time Status Cardiac Monitoring [RC] . DIRECTED Care 05/05/19 21:32 Active EKG Documentation Completion [RC] STAT Care 05/05/19 21:32 Active Oxygen Therapy, ED [RC] ASDIRECTED Care 05/05/19 21:32 Active Pulse Oximetry [RC] ASDIRECTED Care 05/05/19 21:32 Active Sodium Chloride 0.9% [Saline Flush] Med 05/05/19 21:32 Active 10 ml FLUSH ASDIRECTED PRN Sodium Chloride 0.9% [Saline Flush] Med 05/05/19 21:32 Active 2.5 ml FLUSH ASDIRECTED PRN Saline Lock Insert [OM.PC] Stat Oth 05/05/19 21:32 Ordered Medication Orders Sodium Chloride (Saline Flush) 10 ml FLUSH ASDIRECTED PRN PRN Reason: Keep Vein Open Last Admin: 05/05/19 22:10 Dose: 10 ml Sodium Chloride (Saline Flush) 2.5 ml FLUSH ASDIRECTED PRN PRN Reason: Keep Vein Open Last Admin: 05/05/19 22:10 Dose: 2.5 ml Labs: Laboratory Tests 05/05/19 05/05/19 05/05/19 Range/Units 21:38 21:38 21:38 WBC 7.23 (4.0-11.0) K/uL RBC 4.10 L (4.50-5.90) M/uL Hgb 11.9 L (13.0-17.0) g/dL Hct 37.3 L (38.0-50.0) % MCV 91.0 (80.0-98.0) fL MCH 29.0 (27.0-32.0) pg MCHC 31.9 (31.0-37.0) g/dL RDW Std Deviation 45.6 (28.0-62.0) fl RDW Coeff of Francine 14 (11.0-15.0) % Plt Count 223 (150-400) K/uL MPV 10.00 (7.40-12.00) fL Neut % (Auto) 61.5 (48.0-80.0) % Lymph % (Auto) 28.5 (16.0-40.0) % Granite % (Auto) 7.5 (0.0-15.0) % Eos % (Auto) 2.4 (0.0-7.0) % Baso % (Auto) 0.1 (0.0-1.5) % Neut # (Auto) 4.5 (1.4-5.7) K/uL Lymph # (Auto) 2.1 (0.6-2.4) K/uL Granite # (Auto) 0.5 (0.0-0.8) K/uL Eos # (Auto) 0.2 (0.0-0.7) K/uL Baso # (Auto) 0.0 (0.0-0.1) K/uL Nucleated RBC % 0.0 /100WBC Nucleated RBCs # 0 K/uL INR 0.96 D-Dimer, Quantitative (0.0-0.50) mg/L FEU Sodium 142 (136-148) mmol/L Potassium 3.9 (3.5-5.1) mmol/L Chloride 105 (98-107) mmol/L Carbon Dioxide 28.1 (21.0-32.0) mmol/L BUN 11 (7.0-18.0) mg/dL Creatinine 1.0 (0.8-1.3) mg/dL Est Cr Clr Drug Dosing 89.46 mL/min Estimated GFR (MDRD) > 60.0 ml/min Glucose 221 H (74-106) mg/dL Calcium 8.3 L (8.5-10.1) mg/dL Total Bilirubin 0.4 (0.2-1.0) mg/dL AST 16 (15-37) IU/L ALT 30 (14-63) IU/L Alkaline Phosphatase 134 H (46-116) U/L Troponin I < 0.050 (0.000-0.056) ng/mL Total Protein 7.0 (6.4-8.2) g/dL Albumin 3.2 L (3.4-5.0) g/dL Globulin 3.8 (2.6-4.0) g/dL Albumin/Globulin Ratio 0.8 L (0.9-1.6) 05/05/19 Range/Units 21:38 WBC (4.0-11.0) K/uL RBC (4.50-5.90) M/uL Hgb (13.0-17.0) g/dL Hct (38.0-50.0) % MCV (80.0-98.0) fL MCH (27.0-32.0) pg MCHC (31.0-37.0) g/dL RDW Std Deviation (28.0-62.0) fl RDW Coeff of Francine (11.0-15.0) % Plt Count (150-400) K/uL MPV (7.40-12.00) fL Neut % (Auto) (48.0-80.0) % Lymph % (Auto) (16.0-40.0) % Granite % (Auto) (0.0-15.0) % Eos % (Auto) (0.0-7.0) % Baso % (Auto) (0.0-1.5) % Neut # (Auto) (1.4-5.7) K/uL Lymph # (Auto) (0.6-2.4) K/uL Granite # (Auto) (0.0-0.8) K/uL Eos # (Auto) (0.0-0.7) K/uL Baso # (Auto) (0.0-0.1) K/uL Nucleated RBC % /100WBC Nucleated RBCs # K/uL INR D-Dimer, Quantitative 3.11 H (0.0-0.50) mg/L FEU Sodium (136-148) mmol/L Potassium (3.5-5.1) mmol/L Chloride (98-107) mmol/L Carbon Dioxide (21.0-32.0) mmol/L BUN (7.0-18.0) mg/dL Creatinine (0.8-1.3) mg/dL Est Cr Clr Drug Dosing mL/min Estimated GFR (MDRD) ml/min Glucose (74-106) mg/dL Calcium (8.5-10.1) mg/dL Total Bilirubin (0.2-1.0) mg/dL AST (15-37) IU/L ALT (14-63) IU/L Alkaline Phosphatase (46-116) U/L Troponin I (0.000-0.056) ng/mL Total Protein (6.4-8.2) g/dL Albumin (3.4-5.0) g/dL Globulin (2.6-4.0) g/dL Albumin/Globulin Ratio (0.9-1.6) Meds: Medications Generic Name Dose Route Start Last Admin Trade Name Freq PRN Reason Stop Dose Admin Sodium Chloride 10 ml 05/05/19 21:32 05/05/19 22:10 Saline Flush FLUSH 10 ml ASDIRECTED PRN Administration Keep Vein Open Sodium Chloride 2.5 ml 05/05/19 21:32 05/05/19 22:10 Saline Flush FLUSH 2.5 ml ASDIRECTED PRN Administration Keep Vein Open Discontinued Medications Generic Name Dose Route Start Last Admin Trade Name Blasq PRN Reason Stop Dose Admin Aspirin 324 mg 05/05/19 21:45 05/05/19 22:10 Aspirin PO 05/05/19 21:46 Not Given ONETIME ONE Fentanyl 50 mcg 05/05/19 21:45 05/05/19 21:53 Sublimaze IVPUSH 05/05/19 21:46 50 mcg ONETIME ONE Administration Fentanyl 50 mcg 05/05/19 23:59 05/06/19 00:04 Fentanyl IVPUSH 05/06/19 00:02 Not Given ONETIME ONE Fentanyl 50 mcg 05/06/19 00:03 05/06/19 00:09 Sublimaze IVPUSH 05/06/19 00:04 50 mcg STAT ONE Administration Iopamidol 100 ml 05/05/19 23:52 Isovue Multipack-370 (76%) IVPUSH 05/05/19 23:53 ONETIME STA Departure - Departure Time of Disposition: 00:33 Disposition: Home, Self-Care 01 Condition: Good Clinical Impression: Chest wall pain - Discharge Information Referrals: PCP,Unknown [Primary Care Provider] - Forms: ED Department Discharge Additional Instructions: The following information is given to patients seen in the emergency department who are being discharged to home. This information is to outline your options for follow-up care. We provide all patients seen in our emergency department with a follow-up referral. The need for follow-up, as well as the timing and circumstances, are variable depending upon the specifics of your emergency department visit. If you don't have a primary care physician on staff, we will provide you with a referral. We always advise you to contact your personal physician following an emergency department visit to inform them of the circumstance of the visit and for follow-up with them and/or the need for any referrals to a consulting specialist. The emergency department will also refer you to a specialist when appropriate. This referral assures that you have the opportunity for followup care with a specialist. All of these measure are taken in an effort to provide you with optimal care, which includes your followup. Under all circumstances we always encourage you to contact your private physician who remains a resource for coordinating your care. When calling for followup care, please make the office aware that this follow-up is from your recent emergency room visit. If for any reason you are refused follow-up, please contact the [facility] emergency department at and ask to speak to the emergency department charge nurse. [facility] Primary care- [place] [address] Please continue all home medications and use the Percocet you have been given from [employer] as needed for pain management along with any [id number] medications that you choose. Please connect with your local family for follow-up of geoffrey's events and also connect with your infectious disease doctor in the morning to see if he wants you to start the new antibiotic you have been prescribed this evening, Levaquin, you have a right lower lobe lung nodule that will need follow-up as an outpatient as we discussed and you can do that with your provider in the clinic. The antibiotic you have been given today is for a small focus that could be pneumonia in the base of your left lung that is an incidental finding and is not related to why you are having chest pain today. Return to ER as needed and as discussed - My Orders Last 24 Hours: My Active Orders 05/05/19 21:32 Cardiac Monitoring [RC] . DIRECTED EKG Documentation Completion [RC] STAT Oxygen Therapy, ED [RC] ASDIRECTED Pulse Oximetry [RC] ASDIRECTED Sodium Chloride 0.9% [Saline Flush] 10 ml FLUSH ASDIRECTED PRN Sodium Chloride 0.9% [Saline Flush] 2.5 ml FLUSH ASDIRECTED PRN Saline Lock Insert [OM.PC] Stat - Assessment/Plan Last 24 Hours: My Active Orders 05/05/19 21:32 Cardiac Monitoring [RC] . DIRECTED EKG Documentation Completion [RC] STAT Oxygen Therapy, ED [RC] ASDIRECTED Pulse Oximetry [RC] ASDIRECTED Sodium Chloride 0.9% [Saline Flush] 10 ml FLUSH ASDIRECTED PRN Sodium Chloride 0.9% [Saline Flush] 2.5 ml FLUSH ASDIRECTED PRN Saline Lock Insert [OM.PC] Stat
[2019-05-05] MEDS ORDERED: fentaNYL 100 MCG/2 ML SDV IVPUSH ONE (21:45)
[2019-05-05] MEDS ORDERED: Aspirin 81 MG Tab.Chew PO ONE (21:45)
[2019-05-05 22:15] LABS: BLOOD UREA NITROGEN,BUN 11 mg/dL (7.0-18.0); CARBON DIOXIDE,CO2 28.1 mmol/L (21.0-32.0); CHLORIDE,CL 105 mmol/L (98-107); GLUCOSE RANDOM 221 mg/dL (74-106); POTASSIUM,K 3.9 mmol/L (3.5-5.1); SODIUM,NA 142 mmol/L (136-148)
--- NOTE | 2019-05-05 22:17 | CR ---
INDICATION: Chest pain, shortness of breath, upper abdominal pain, history of MO TECHNIQUE: Chest 2 views. COMPARISON: None FINDINGS: Cardiovascular and mediastinum: Heart size and vasculature are normal in caliber and appearance. Mediastinum is within normal limits. Left-sided PICC line tip terminates in the distal SVC. Lungs and pleural spaces: Lungs are clear. No sign of infiltrate or mass. No sign of pleural effusion. No pneumothorax. Bones and soft tissues: No significant findings. IMPRESSION: Unremarkable chest. Dictated by Chandu Simon MD @ 05/05/2019 10:15:39 PM Dictated by: Chandu Simon MD @ 05/05/2019 22:15:44 (Electronically Signed)
[2019-05-05] MEDS ORDERED: Iopamidol 755 MG/ML 500 ML Multipack Bottle IVPUSH STA (23:52)
[2019-05-05] MEDS ORDERED: fentaNYL 50 MCG/ML SDV IVPUSH ONE (23:59)
[2019-05-06] MEDS ORDERED: fentaNYL 100 MCG/2 ML SDV IVPUSH ONE (00:03)
--- NOTE | 2019-05-06 00:25 | CT ---
INDICATION: Chest pain and upper abdominal pain, elevated d-dimer. Post operative hip replacement TECHNIQUE: CT chest with i.v. contrast using pulmonary angiographic technique. Coronal and sagittal reformats were obtained. CONTRAST: 50 mL Isovue 370 COMPARISON: None FINDINGS: Moderate degradation of image quality noted due to body habitus. Cardiovascular: No CT evidence of central pulmonary embolism seen. The 3rd and higher order pulmonary vessels cannot be evaluated due to suboptimal contrast bolus. The heart has an unremarkable appearance and size. No sign of aneurysm in the thoracic aorta. Mediastinum: No mass or adenopathy seen. Lung: A small focus of peribronchial consolidation is seen in the posterior left lower lobe, suspicious for pneumonia. There is an oblong 9 mm nodule present in the right lower lobe, abutting the major fissure on image 50. Pleura and pericardium: No sign of pleural effusion seen. No significant pericardial effusion is present. Chest wall and axilla: No mass or adenopathy seen. Bone: Unremarkable for age. Upper abdomen: Unremarkable. IMPRESSIONS: 1. No CT evidence of central pulmonary embolism seen. The 3rd and higher order pulmonary vessels cannot be evaluated due to suboptimal contrast bolus. 2. A small focus of peribronchial consolidation is seen in the posterior left lower lobe, suspicious for pneumonia. 3. There is an oblong 9 mm nodule present in the right lower lobe, abutting the major fissure on image 50. This may represent an intrapulmonary lymph node. Follow-up chest CT in 3 months is recommended to document stability. Dictated by Bull Chan MD @ 05/06/2019 12:23:41 AM Please note that all CT scans at this facility use dose modulation, iterative reconstruction, and/or weight-based dosing when appropriate to reduce radiation dose to as low as reasonably achievable. Dictated by: Bull Chan MD @ 05/06/2019 00:23:45 (Electronically Signed)
[2019-05-06 00:46] VITALS: BP 135/89; PULSE 77
[2019-05-06] MEDS ORDERED: Iopamidol 755 MG/ML 500 ML Multipack Bottle IVPUSH STA (07:07)
== END 2019-05-06 00:52 | disposition home or self-care (01) ==
LOC: MW.ED 21:26
DX: R07.89 Other chest pain (principal); I11.0 Hypertensive heart disease with heart failure; I50.9 Heart failure, unspecified; E78.00 Pure hypercholesterolemia, unspecified; E11.9 Type 2 diabetes mellitus without complications; Z88.1 Allergy status to other antibiotic agents; Z88.5 Allergy status to narcotic agent; Z79.82 Long term (current) use of aspirin; Z79.899 Other long term (current) drug therapy; Z79.84 Long term (current) use of oral hypoglycemic drugs; Z95.9 Presence of cardiac and vascular implant and graft, unspecified
CPT/HCPCS: 71046; 71275; 80053; 84484; 85025; 85379; 85610; 93005; 96374; 96376; 99285; J1642; J3010; Q9967; 99284

== ENCOUNTER 2020-06-20 12:24 | Emergency (ER) | payer MEDICARE, OTHER ==
[2020-06-20] MEDS ORDERED: Ketorolac 15 MG/ML SDV IVPUSH ONE (12:51)
[2020-06-20] MEDS ORDERED: Lactated Ringers 1,000 ML IV ONE (12:51)
[2020-06-20] MEDS ORDERED: Sodium Chloride 0.9% 2.5 ML Syringe FLUSH PRN (12:51)
[2020-06-20] MEDS ORDERED: Sodium Chloride 0.9% 10 ML Syringe FLUSH PRN (12:51)
[2020-06-20 13:15] LABS: BLOOD UREA NITROGEN,BUN 16 mg/dL (7.0-18.0); CARBON DIOXIDE,CO2 29.9 mmol/L (21.0-32.0); CHLORIDE,CL 105 mmol/L (98-107); GLUCOSE RANDOM 105 mg/dL (74-106); POTASSIUM,K 4.3 mmol/L (3.5-5.1); SODIUM,NA 142 mmol/L (136-148)
[2020-06-20] MEDS ORDERED: Iopamidol 755 MG/ML 500 ML Multipack Bottle IVPUSH STA (14:16)
--- NOTE | 2020-06-20 14:56 | CT ---
INDICATION: Left lower quadrant pain TECHNIQUE: CT abdomen and pelvis acquired without and with 100 cc Isovue 370 IV contrast. COMPARISON: None FINDINGS: Lower chest: Unremarkable. Liver: Subcentimeter hypodensity in the liver, too small to accurately characterize. Spleen: Unremarkable. Pancreas: Unremarkable. Gallbladder and bile ducts: Unremarkable. Adrenal glands: Unremarkable. Kidneys: Noncontrast images demonstrate no collecting system stone or hydronephrosis. Simple cyst on the superior pole of the left kidney. Subcentimeter hypodense lesion in the right mid kidney measuring 71 Hounsfield units in density on noncontrast exam. This likely represents a hemorrhagic cyst. GI tract: Minimal colonic diverticulosis. Appendix is normal. Vascular structures: Unremarkable. Lymph nodes: Unremarkable. Miscellaneous: Unremarkable. No free air or significant free fluid. Pelvic Organs: Somewhat obscured by streak artifact from left hip arthroplasty hardware. Bones: Status post left hip arthroplasty. IMPRESSION: No renal stone, hydronephrosis, or acute diverticulitis. No acute intra-abdominal process identified. Colonic diverticulosis without evidence for diverticulitis. Status post left hip arthroplasty. Please note that all CT scans at this facility use dose modulation, iterative reconstruction, and/or weight-based dosing when appropriate to reduce radiation dose to as low as reasonably achievable. Dictated by Margaret Christianson MD @ Jun 20 2020 2:47PM Signed by Dr. Margaret Christianson @ Jun 20 2020 2:53PM
--- NOTE | 2020-06-20 15:20 | EDM.PDOC ---
ED HPI GENERAL MEDICAL PROBLEM - General Chief Complaint: Abdominal Pain Stated Complaint: ABDOMINAL PAIN Time Seen by Provider: 06/20/20 12:36 - History of Present Illness INITIAL COMMENTS - FREE TEXT/NARRATIVE: CHIEF COMPLAINT(S): Abdominal pain HISTORY OF PRESENT ILLNESS: This is a 59-year-old man with a past medical history of diabetes mellitus, CAMI, nonischemic cardiomyopathy who comes to the emergency department with a chief complaint of abdominal pain. The patient states that for approximately 1 to 2 days now he has been experiencing pain in his left lower quadrant. He states that he does have a history of a hernia but this feels different. He describes the pain as sharp and intermittent and worse when he lays on his left side. He denies any nausea or vomiting and denies any hematemesis, bilious emesis, melena, or hematochezia. He denies any history of diverticulitis or Crohn's disease. He states that he has been tolerating p.o. but the last. He denies any history of atrial fibrillation. He states that he has not yet taken any medication for. He states the pain does not radiate anywhere and is rated 10 out of 10 when he lays on his left side. He denies any injury to his abdomen. He denies any relieving symptoms other than not laying on his left side. He denies any chest pain, shortness of breath, fever, cough. REVIEW OF SYSTEMS: Constitutional: Denies fever, chills. Eyes: Denies eye pain Ears, Nose, Mouth, & Throat: Denies earache Cardiovascular: Denies chest pain Respiratory: Denies shortness of breath Gastrointestinal: Positive for left lower quadrant abdominal pain. Denies nausea, vomiting, diarrhea, hematochezia, hematemesis, bilious emesis Genitourinary: Denies hematuria, dysuria Skin:Denies a rash Neurological: Denies blurred vision Psychiatric: Denies depression PAST MEDICAL HISTORY: As per history of present illness and as reviewed below otherwise noncontributory. SURGICAL HISTORY: As per history of present illness and as reviewed below otherwise noncontributory. SOCIAL HISTORY: As per history of present illness and as reviewed below otherwise noncontributory. FAMILY HISTORY: As per history of present illness and as reviewed below otherwise noncontributory. EXAMINATION OF ORGAN SYSTEMS/BODY AREAS: Constitutional: Blood pressure is 142/82, heart rate 65, respiratory 24 with an oxygen saturation 97% on room air. Temperature 36.1 General: Middle-aged man who appears comfortable however appears to be in pain when moving. Psychiatric: Appropriate mood and affect. Eyes: No scleral icterus or conjunctival erythema ENMT: Moist mucous membranes. No pharyngeal erythema Cardiovascular: Regular, rate, and rythym. No gallops, murmurs, or rubs. Bilateral upper extremity pulses symmetric and intact. No peripheral edema. No JVD. Respiratory: Lungs clear to auscultation bilaterally. No wheezes, rales, or rhonchi. Gastrointestinal: Soft, obese, left lower quadrant tenderness to palpation. No rebound or guarding. Normoactive bowel sounds Genitourinary: No suprapubic tenderness no CVA tenderness Musculoskeletal: Normal range of motion. Skin: No lesions or abrasions. Neurological: Alert, GCS 15 MEDICAL DECISION MAKING AND COURSE IN THE ED WITH INTERPRETATION/REVIEW OF DIAGNOSTIC STUDIES: This is a 59-year-old man with a past medical history of nonischemic cardiomyopathy, obstructive sleep apnea, and diabetes mellitus who comes to the emergency department with left lower quadrant abdominal pain without any radiation who has stable vital signs. At this time a screening EKG was obtained which appears to be unchanged from prior. Will obtain labs including CBC, CMP, coags, and troponin given atypical presentation of ACS and given his duration if negative we will not repeat troponin. Will obtain a CT abdomen pelvis with and without contrast to evaluate for nephrolithiasis versus diverticulitis versus incarcerated internal hernia. We will provide the patient with Toradol for pain relief. And a 1 L of lactated Ringer's bolus. Twelve-lead EKG interpreted by myself. Normal sinus rhythm at a rate of 58beats per minute. Normal axis. ME interval is 182ms. QRS duration is 109ms. ST segments are normal without elevations or depressions. No Q waves present. Hypertrophy not noted. No changes demonstrated from prior EKG dated June 15, 2019. Interpretation: Normal sinus rhythm The radiological images were viewed by myself along with reading the report from the radiologist. CT abdomen pelvis with and without contrast does not reveal any evidence of renal stone, hydronephrosis or acute diverticulitis. There is no acute intra- abdominal process identified. There is colonic diverticulosis without evidence of diverticulitis. There appears to be a small subcentimeter hypodensity in the liver however unable to characterize with simple cysts of the left kidney. Laboratory: CBC is unremarkable. Coags are within normal limits. CMP is unremarkable. Troponin is negative. After labs and imaging I did discuss the results with the patient. I discussed with him at this time that there is no acute evidence of infection or abnormality in his abdomen. I did discuss with him at this time that this could be secondary to muscle strain versus another cause. I discussed the use of Tylenol, Motrin for pain relief. Also discussed the importance of following with his primary care physician. He did express understanding and was amenable to discharge at this time. The patient did report improvement in his symptoms. DISPOSITION: The patient was discharged home in stable condition. The patient will follow up with PCP within 1 CONDITION: Fair PROCEDURES: None FINAL IMPRESSION(S)/DIAGNOSES: 1. Acute left lower quadrant abdominal pain secondary to unknown etiology Gabriel Ryan M.D. Abdominal Pain Score (Numeric/FACES): 10 - Related Data Allergies Allergy/AdvReac Type Severity Reaction Status Date / Time cephalexin [From Keflex] Allergy Hives Verified 06/20/20 12:38 hydrocodone Allergy Itching Verified 06/20/20 12:38 morphine Allergy Nausea Verified 06/20/20 12:38 Home Meds: Home Meds Metoprolol Succinate 25 mg PO BID 12/03/18 [History] atorvaSTATin Calcium [Atorvastatin Calcium] 40 mg PO BEDTIME 03/24/19 [History] metFORMIN HCl [Metformin HCl ER] 500 mg PO QAM 03/24/19 [History] Cyclobenzaprine [Flexeril] 10 mg PO BID 05/05/19 [History] Docusate Sodium [Colace] 100 mg PO ASDIRECTED 06/20/20 [History] Furosemide 40 mg PO DAILY 06/20/20 [History] Lidocaine 5% 35.44 gm .XX BID 7 Days #35.44 tube 06/20/20 [Rx] methocarbamoL [Robaxin-750] 1,500 mg PO TID 10 Days #60 tablet 06/20/20 [Rx] Past Medical History - Past Health History Medical/Surgical History: Denies Medical/Surgical History HEENT History: Reports: None Cardiovascular History: Reports: Arrhythmia, Heart Failure, High Cholesterol, Hypertension, Other (See Below) Other Cardiovascular History: wore a monitor for awhile- had 1 episode of arrythmia (unknown type)- will have MRI on 03/25/19, cardiac cath 09/15 completely normal per patient Respiratory History: Reports: Sleep Apnea Other Respiratory History: unable to tolerate CPAP or BiPAP due to PTSD with things covering his face. Gastrointestinal History: Reports: GERD, Hiatal Hernia Other Gastrointestinal History: shalom GERD for 20 years Genitourinary History: Reports: None Musculoskeletal History: Reports: Arthritis, Fracture Other Musculoskeletal History: hx of fx finger and arm as a child Neurological History: Reports: Migraines, Other (See Below) Other Neuro History: hx of motion sickness and claustrophobia Psychiatric History: Reports: None Endocrine/Metabolic History: Reports: Diabetes, Type II, Obesity/BMI 30+ Other Endocrine/Metabolic History: has A1C of 6.4, was put on Metformin- A1C is now 5.3 Insulin Pump Model and Blender Helper: None Hematologic History: Reports: None Immunologic History: Reports: None Oncologic (Cancer) History: Reports: None Dermatologic History: Reports: None - Infectious Disease History Infectious Disease History: Reports: Chicken Pox - Past Surgical History Head Surgeries/Procedures: Reports: None HEENT Surgical History: Reports: Naso-Sinus Surgery Other HEENT Surgeries/Procedures: Septum repair of bilateral nare Cardiovascular Surgical History: Reports: Other (See Below) Other Cardiovascular Surgeries/Procedures: hx of Angiogram- no blockage found Respiratory Surgical History: Reports: None GI Surgical History: Reports: Azalia Fundoplication Other GI Surgeries/Procedures: Gerd surgery Male Surgical History: Reports: None Endocrine Surgical History: Reports: None Neurological Surgical History: Reports: None Musculoskeletal Surgical History: Reports: Other (See Below) Other Musculoskeletal Surgeries/Procedures:: hx of Fasciotomy right calf- had cyst behind knee rupture causing bleeding into calf area- causing Compartment Syndrome Oncologic Surgical History: Reports: None Dermatological Surgical History: Reports: None Social & Family History - Family History Family Medical History: No Pertinent Family History - Tobacco Use Tobacco Use Status *Q: Never Tobacco User - Caffeine Use Caffeine Use: Reports: Coffee Caffeine Use Comment: 1cup/day - Living Situation & Occupation Living situation: Reports: Occupation: Unemployed ED ROS GENERAL - Review of Systems Review Of Systems: See Below ED EXAM, GENERAL - Physical Exam Exam: See Below Course - Vital Signs Last Recorded V/S: Last Vital Signs Temp 36.8 C 06/20/20 15:37 Pulse 60 06/20/20 15:37 Resp 18 06/20/20 15:37 BP 158/80 H 06/20/20 15:37 Pulse Ox 95 06/20/20 15:37 - Orders/Labs/Meds Orders: Active Orders 24 hr Category Date Time Status Saline Lock Insert [OM.PC] Stat Oth 06/20/20 12:51 Ordered Labs: Laboratory Tests 06/20/20 06/20/20 06/20/20 Range/Units 12:38 12:38 12:38 WBC 7.90 (4.0-11.0) K/uL RBC 5.21 (4.50-5.90) M/uL Hgb 14.9 (13.0-17.0) g/dL Hct 46.3 (38.0-50.0) % MCV 88.9 (80.0-98.0) fL MCH 28.6 (27.0-32.0) pg MCHC 32.2 (31.0-37.0) g/dL RDW Std Deviation 50.6 (28.0-62.0) fl RDW Coeff of Francine 16 H (11.0-15.0) % Plt Count 214 (150-400) K/uL MPV 10.70 (7.40-12.00) fL Neut % (Auto) 56.3 (48.0-80.0) % Lymph % (Auto) 30.5 (16.0-40.0) % [place] % (Auto) 10.0 (0.0-15.0) % Eos % (Auto) 2.8 (0.0-7.0) % Baso % (Auto) 0.4 (0.0-1.5) % Neut # (Auto) 4.5 (1.4-5.7) K/uL Lymph # (Auto) 2.4 (0.6-2.4) K/uL [place] # (Auto) 0.8 (0.0-0.8) K/uL Eos # (Auto) 0.2 (0.0-0.7) K/uL Baso # (Auto) 0.0 (0.0-0.1) K/uL Nucleated RBC % 0.0 /100WBC Nucleated RBCs # 0 K/uL INR 1.03 Sodium 142 (136-148) mmol/L Potassium 4.3 (3.5-5.1) mmol/L Chloride 105 (98-107) mmol/L Carbon Dioxide 29.9 (21.0-32.0) mmol/L BUN 16 (7.0-18.0) mg/dL Creatinine 0.9 (0.8-1.3) mg/dL Est Cr Clr Drug Dosing 98.20 mL/min Estimated GFR (MDRD) > 60.0 ml/min Glucose 105 (74-106) mg/dL Calcium 8.9 (8.5-10.1) mg/dL Magnesium 2.2 (1.8-2.4) mg/dL Total Bilirubin 0.7 (0.2-1.0) mg/dL AST 19 (15-37) IU/L ALT 30 (14-63) IU/L Alkaline Phosphatase 114 (46-116) U/L Troponin I < 0.050 (0.000-0.056) ng/mL Total Protein 7.3 (6.4-8.2) g/dL Albumin 4.0 (3.4-5.0) g/dL Globulin 3.3 (2.6-4.0) g/dL Albumin/Globulin Ratio 1.2 (0.9-1.6) Blood Type Antibody Screen 06/20/20 Range/Units 13:25 WBC (4.0-11.0) K/uL RBC (4.50-5.90) M/uL Hgb (13.0-17.0) g/dL Hct (38.0-50.0) % MCV (80.0-98.0) fL MCH (27.0-32.0) pg MCHC (31.0-37.0) g/dL RDW Std Deviation (28.0-62.0) fl RDW Coeff of Francine (11.0-15.0) % Plt Count (150-400) K/uL MPV (7.40-12.00) fL Neut % (Auto) (48.0-80.0) % Lymph % (Auto) (16.0-40.0) % [place] % (Auto) (0.0-15.0) % Eos % (Auto) (0.0-7.0) % Baso % (Auto) (0.0-1.5) % Neut # (Auto) (1.4-5.7) K/uL Lymph # (Auto) (0.6-2.4) K/uL [place] # (Auto) (0.0-0.8) K/uL Eos # (Auto) (0.0-0.7) K/uL Baso # (Auto) (0.0-0.1) K/uL Nucleated RBC % /100WBC Nucleated RBCs # K/uL INR Sodium (136-148) mmol/L Potassium (3.5-5.1) mmol/L Chloride (98-107) mmol/L Carbon Dioxide (21.0-32.0) mmol/L BUN (7.0-18.0) mg/dL Creatinine (0.8-1.3) mg/dL Est Cr Clr Drug Dosing mL/min Estimated GFR (MDRD) ml/min Glucose (74-106) mg/dL Calcium (8.5-10.1) mg/dL Magnesium (1.8-2.4) mg/dL Total Bilirubin (0.2-1.0) mg/dL AST (15-37) IU/L ALT (14-63) IU/L Alkaline Phosphatase (46-116) U/L Troponin I (0.000-0.056) ng/mL Total Protein (6.4-8.2) g/dL Albumin (3.4-5.0) g/dL Globulin (2.6-4.0) g/dL Albumin/Globulin Ratio (0.9-1.6) Blood Type A POSITIVE Antibody Screen NEGATIVE Meds: Medications Discontinued Medications Generic Name Dose Route Start Last Admin Trade Name Freq PRN Reason Stop Dose Admin Lactated Ringer's 1,000 mls @ 999 mls/hr 06/20/20 12:51 06/20/20 13:00 Ringers, Lactated IV 06/20/20 13:51 999 mls/hr .BOLUS ONE Administration Iopamidol 100 ml 06/20/20 14:16 06/20/20 14:18 Isovue Multipack-370 (76%) IVPUSH 06/20/20 14:17 100 ml ONETIME STA Administration Ketorolac Tromethamine 15 mg 06/20/20 12:51 06/20/20 13:00 Toradol IVPUSH 06/20/20 12:52 15 mg ONETIME ONE Administration Sodium Chloride 10 ml 06/20/20 12:51 06/20/20 13:00 Saline Flush FLUSH 10 ml ASDIRECTED PRN Administration Keep Vein Open Sodium Chloride 2.5 ml 06/20/20 12:51 06/20/20 13:00 Saline Flush FLUSH 2.5 ml ASDIRECTED PRN Administration Keep Vein Open Departure - Departure Time of Disposition: 15:18 Disposition: Home, Self-Care 01 Condition: Fair Clinical Impression: Abdominal pain Qualifiers: Abdominal location: left lower quadrant Qualified Code(s): R10.32 - Left lower quadrant pain - Discharge Information *PRESCRIPTION DRUG MONITORING PROGRAM REVIEWED*: No *COPY OF PRESCRIPTION DRUG MONITORING REPORT IN PATIENT VONNIE: No Prescriptions: Lidocaine 5% 35.44 gm .XX BID 7 Days #35.44 tube methocarbamoL [Robaxin-750] 1,500 mg PO TID 10 Days #60 tablet Instructions: Abdominal Pain, Adult, [id number], Musculoskeletal Pain, Pain Medicine Instructions, [id number] Referrals: PCP,None [Primary Care Provider] - Forms: ED Department Discharge Additional Instructions: The patient is informed of any results of their evaluation and diagnostic workup and all questions are answered. They are given discharge instructions and return precautions. The patient is stable for discharge. The patient states they understand and agree with the plan and that they will return if their symptoms get worse or if they have any new concerns. The following information is given to patients seen in the emergency department who are being discharged to home. This information is to outline your options for follow-up care. We provide all patients seen in our emergency department with a follow-up referral. The need for follow-up, as well as the timing and circumstances, are variable depending upon the specifics of your emergency department visit. If you don't have a primary care physician on staff, we will provide you with a referral. We always advise you to contact your personal physician following an emergency department visit to inform them of the circumstance of the visit and for follow-up with them and/or the need for any referrals to a consulting specialist. The emergency department will also refer you to a specialist when appropriate. This referral assures that you have the opportunity for follow-up care with a specialist. All of these measure are taken in an effort to provide you with optimal care, which includes your follow-up. Under all circumstances we always encourage you to contact your private physician who remains a resource for coordinating your care. When calling for follow-up care, please make the office aware that this follow-up is from your recent emergency room visit. If for any reason you are refused follow-up, please contact the [facility] Emergency Department at and asked to speak to the emergency department charge nurse. Today your evaluated on an emergency basis. Your imaging and lab work did not reveal a cause of your left lower quadrant pain. At this time it could be secondary to musculoskeletal strain versus another cause. Please use lidocaine cream twice a day as needed for pain, ice the area 20 minutes 4 times a day, and use Robaxin 3 times a day. Please return to the emergency department for any new worsening symptoms such as chest pain, worsening abdominal pain, inability to tolerate p.o., blood in stool, or blood in vomit. Please follow-up with your primary care physician within 1 week [facility] [address] [place] [address] [place] [address] Sepsis Event Note (ED) - Evaluation Sepsis Screening Result: No Definite Risk - Focused Exam Vital Signs: Vital Signs Temp Pulse Resp BP Pulse Ox 06/20/20 15:37 36.8 C 60 18 158/80 H 95 06/20/20 12:40 36.1 C 65 24 H 142/82 H 97 - My Orders Last 24 Hours: My Active Orders 06/20/20 12:51 Saline Lock Insert [OM.PC] Stat - Assessment/Plan Last 24 Hours: My Active Orders 06/20/20 12:51 Saline Lock Insert [OM.PC] Stat
[2020-06-20 15:55] VITALS: BP 158/80; PULSE 60
== END 2020-06-20 15:37 | disposition home or self-care (01) ==
LOC: MW.ED 12:24
DX: R10.32 Left lower quadrant pain (principal); E11.9 Type 2 diabetes mellitus without complications; I11.0 Hypertensive heart disease with heart failure; I50.9 Heart failure, unspecified; E78.00 Pure hypercholesterolemia, unspecified; E66.9 Obesity, unspecified; Z68.41 Body mass index [BMI] 40.0-44.9, adult; Z88.1 Allergy status to other antibiotic agents; Z88.5 Allergy status to narcotic agent; Z79.84 Long term (current) use of oral hypoglycemic drugs
CPT/HCPCS: 36415; 74178; 80053; 83735; 84484; 85025; 85610; 86850; 86900; 86901; 93005; 96374; 99284; J1885; J7120; Q9967; 93010; 99283

== ENCOUNTER 2023-09-15 16:17 | Emergency (ER) | payer SELFPAY ==
[2023-09-15 18:01] VITALS: BP 132/77; PULSE 74
== END 2023-09-15 18:00 | disposition home or self-care (01) ==
LOC: MW.ED 16:17
DX: S16.1XXA Strain of muscle, fascia and tendon at neck level, initial encounter (principal); Y04.2XXA Assault by strike against or bumped into by another person, initial encounter; I11.0 Hypertensive heart disease with heart failure; I50.9 Heart failure, unspecified; E11.9 Type 2 diabetes mellitus without complications; Z88.5 Allergy status to narcotic agent; Z88.1 Allergy status to other antibiotic agents
CPT/HCPCS: 70450; 70450-26; 70486; 70486-26; 72125; 72125-26; 99283; 99284